=== PATIENT | male | born 1965 | race Caucasian/White ===

== ENCOUNTER → 2017-10-22 10:27 | Outpatient (CLI) | payer OTHER, SELFPAY ==
[2017-10-22 12:53] LABS: PSA,Total- Diagnostic 0.38 ng/mL (0.0-4.0)
== END ==
PROVIDERS: Family Provider Nurse Practitioner Family; PCP Nurse Practitioner Family
DX: N40.1 Benign prostatic hyperplasia with lower urinary tract symptoms (principal); N13.8 Other obstructive and reflux uropathy; Z12.5 Encounter for screening for malignant neoplasm of prostate
CPT/HCPCS: 36415; 84153

== ENCOUNTER → 2017-11-05 12:52 | Outpatient (CLI) | payer OTHER, SELFPAY ==
--- NOTE | 2017-11-05 12:56 | MRI_ITS ---
STUDY: MRI BRAIN WITHOUT CONTRAST REASON FOR EXAM: Male, 52 years old. Follow-up of Arnold-Chiari malformation. Patient has occipital headache and neck pain. TECHNIQUE: Standardized multiplanar fat and water weighted pulse sequences were obtained. COMPARISON: MRI the cervical spine dated July 19, 2017. FINDINGS: Normal size of the ventricles and extra-axial spaces for the patient's age. The white matter has a generally normal appearance. There is a focus of abnormal T2 hyperintensity within the left cho radiata measuring 8.1 mm in size. This does not have any significant mass effect. This also has abnormal T1 hyperintensity. There is no evidence for recent intracranial ischemia or other cause of cytotoxic edema on diffusion weighted imaging (DWI). Normal T2* images of the brain without demonstrated susceptibility artifact. There is no demonstrated hemosiderin stain. Normal bilateral basal ganglia. Normal thalami. There is no extra-axial fluid accumulation. Normal flow voids within the major intracranial circulation suggesting patency by spin echo criteria. Normal sella turcica, pituitary gland, infundibular stalk, optic chiasm and hypothalamus. 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 The pineal cyst measures approximately 5.5 mm in greatest dimension. Normal midbrain, armand and medulla. There is mild tonsillar ectopia, which is within normal limits, and without distortion of the brainstem. The findings are not consistent with an Arnold-Chiari type I malformation. Normal basal cisterns. Normal bilateral temporal bones. Normal bilateral internal auditory canals. No demonstrated orbital abnormality, within the constraints of a routine brain study. There is opacification of most of the ethmoid sinuses. There is mild mucoperiosteal thickening within the frontal, maxillary and sphenoid sinuses. Normal calvarium and skull base. Normal visualized soft tissue structures. Normal visualized upper cervical spine. MRI/Brain without Contrast IMPRESSION: 1. There does not appear to be a Arnold-Chiari malformation. There appears to be mild tonsillar ectopia. 2. Nonspecific abnormal signal within the left cho radiata. This may be the result of previous ischemia, infection or demyelination. Neoplastic etiology is not excluded. 3. No MR evidence for acute infarct. 4. Moderately severe paranasal sinus disease. Electronically Signed: Leni Tafoya MD at 15:49 EDT , Service support ,
== END ==
PROVIDERS: Family Provider Nurse Practitioner Family; PCP Nurse Practitioner Family; Visit Provider Psychiatry & Neurology Neurology
DX: Q07.00 Arnold-Chiari syndrome without spina bifida or hydrocephalus (principal)
CPT/HCPCS: 70551

== ENCOUNTER 2017-11-22 07:22 | Day surgery (SDC) | payer OTHER, SELFPAY ==
--- NOTE | 2017-11-21 23:36 | HP.PCM_ITS ---
History and Physical Date of Admission: 11/22/17 HISTORY OF PRESENT ILLNESS This is a 52-year-old gentleman, who presents with a lesion on his left distal nasal dorsum near the tip that had increased in size over the last several months. It was biopsied on 07/31/17 and it showed an eroded basal cell carcinoma , superficial and micronodular type with positive margins. He also had a lesion of his left chest wall that had also increased in size as well and was biopsied on 07/31/17. It showed a dysplastic nevus with moderate atypia. He presents today for surgical options for treatment for his recently diagnosed basal cell carcinoma on his left distal nasal dorsum near the tip and his dysplastic nevus with moderate atypia on his left chest wall. The patient denies any fever. The patient denies any trauma. The patient denies any drainage or recent infection from these lesions on his nose and left chest wall. PAST MEDICAL HISTORY 1. Alcohol abuse. 2. Back pain. 3. Urinary tract infections. 4. Breast lump. 5. Carpal tunnel syndrome. 6. Depression. 7. Headaches. 8. Hypertension. 9. High cholesterol. 10. Hives. 11. Kidney stones. 12. Neuropathy. 13. Pneumonia. 14. Prostate problems. 15. Skin cancer. 16. Vision problems. 17. Cervical stenosis. 18. Psoriasis. 19. Basal cell carcinoma right lateral nasal sidewall/nasal dorsum. 20. Actinic keratosis left supramedial cheek. PAST SURGICAL HISTORY 1. Chest lump removed. 2. Cyst removed off his penis. 3. Arthroscopic surgery on his knee. 4. Two ingrown toe nails surgery. 5. Excision 7 mm basal cell carcinoma right lateral nasal sidewall/nasal dorsum with FTSG reconstruction from the right neck (1.5 cm2) and intradermal excision 5 mm actinic keratosis left supramedial cheek - 05/24/16 MEDICATIONS Pantoprazole, Lipitor, meloxicam, acyclovir, Tamsulosin, aspirin, ibuprofen, Lisinopril, Neurontin, Nicoderm. ALLERGIES BAND-AIDS. SOCIAL HISTORY The patient smokes. The patient drinks alcohol every day. The patient has a history of alcohol abuse in the past. FAMILY HISTORY Positive for skin cancer. Also positive for hypertension and stroke. REVIEW OF SYSTEMS GENERAL: Denies fever and weight loss. Does have some fatigue. EARS, NOSE, AND THROAT: Denies nasal congestion. Denies sore throat. EYES: Denies glaucoma. Denies cataracts. ENDOCRINE: Denies excessive thirst or urination. INTEGUMENTARY: Has a lesion on his left distal nasal dorsum near the tip that was biopsied on 07/31/17 and was a basal cell carcinoma. Has a lesion left chest wall that was biopsied on 07/31/17 and was a dysplastic nevus with moderate atypia. Had basal cell carcinoma excised from right lateral nasal sidewall/nasal dorsum in 05/11. Also has a positive family history of skin cancer. MUSCULOSKELETAL: Has joint pain, joint stiffness and weakness in muscles and joints, and back pain. NEUROLOGIC: Has headaches. Has some lightheadedness. CARDIOVASCULAR: Denies chest pain. Denies shortness of breath with exertion. Has some lightheadedness. Has some fatigue. PSYCHIATRIC: Has some depression. Denies anxiety. RESPIRATORY: Denies chronic cough. Has shortness of breath. Patient is a smoker. GASTROINTESTINAL: Denies nausea or vomiting. Has some diarrhea and some constipation. HEMATOLOGIC: Denies abnormal bruising. Denies fever. Denies anemia. GENITOURINARY: Denies urinary frequency. Denies hematuria. Has some prostate problems. Has history of kidney stones. PHYSICAL EXAMINATION HEENT: Pupils equal, round, and reactive to light. Extraocular movements are intact. Throat is clear. On the left distal nasal dorsum near the tip is an 8 mm lesion that was recently biopsied and found to be a basal cell carcinoma. Healing scar with no evidence of infection. No ulceration. NECK: Supple and nontender. No cervical adenopathy. No suspicious lesions noted. CHEST WALL: On the left chest wall is a 1 cm recently biopsied lesion that was a dysplastic nevus with moderate atypia. Scar is healed with no evidence of infection. LUNGS: Clear to auscultation. HEART: Regular rate and rhythm. ABDOMEN: No suspicious lesions noted. BACK: No suspicious lesions noted. EXTREMITIES: No suspicious lesions noted. Full range of motion. No axillary adenopathy. Radial pulses are palpable. NEURO: Cranial nerves II through XII grossly intact. ASSESSMENT 1. 8 mm basal cell carcinoma, left distal nasal dorsum near the tip. 2. 1 cm dysplastic nevus with moderate atypia left chest wall. 3. Personal history of skin cancer. 4. Family history of skin cancer. 5. Smoker. PLAN I recommend excising this basal cell carcinoma on the left distal nasal dorsum near the tip and send it to Pathology for analysis to rule out carcinoma at the margins. Need a 3-5 mm margin. Reconstruction will be with a skin flap or a skin graft. Also recommend excising the dysplastic nevus with moderate atypia on his left chest wall and send it to Pathology for analysis to rule out carcinoma at the margins. Need a couple mm margin. Surgery will take place under local anesthesia and IV sedation on an outpatient basis. The patient was informed of the risks and complications of the procedure including alternatives to surgery. These were discussed with the patient personally. The patient voices understanding and wishes to proceed. Some of the risks and complications were included in a form from the [employer]. Encouraged the patient to stop smoking as it may have deleterious effects on wound healing.
[2017-11-22] VITALS (8 sets, daily range): BP systolic 116–135; BP diastolic 81–87; PULSE 64–69; RESP 16–18; TEMP 36.3–36.6; O2SAT 96–100; BMI 31.6
[2017-11-22] MEDS: Clindamycin 900 MG/50 ML BAG 75 MG IV (09:14)
--- NOTE | 2017-11-22 09:15 | LES_PTH ---
PATIENT: RAMA KENNY LOC: [facility] [place][id number] AGE/SX: 52/M ROOM: RE11/22/[address]: Dr. Roly Merida MD : 1965 BED: DIS: 11/22/2017 SPEC #: [id number] RECD: 11/22/17 11:12 STATUS: MAIK ALONDRA #: [id number] ANI: 11/22/17 09:[address]: Roly Merida DEPT: SURGICAL PATHOLOGY RECD BY: Den Puri ENTERED: 11/22/17 11:32 SP TYPE: Lesion OTHR DR: Wilton Logan, MARGIE-Adam Tissues: A - Skin of nose, NOS B - Skin of chest Procedures: Surgery Specimen Level IV HEADER OPERATION: Excision, basal cell cancer, distal nasal dorsum with skin flap PRE-OP DIAGNOSIS: 8 mm basal cell carcinoma left distal nasal dorsum near the tip; 1 cm dysplastic nevus with moderate atypia left chest wall; personal history of skin cancer TISSUE SUBMITTED: A. Basal cell carcinoma, distal nasal dorsum, suture at 12 o?clock, B. Dysplastic nevus chest wall MICROSCOPIC DIAGNOSIS A. Basal cell carcinoma, distal nasal dorsum, excisional biopsy: Basal cell carcinoma with focal ulceration and associated inflammation, completely excised. Solar elastosis. B. Dysplastic nevus chest wall, excisional biopsy: Dermal fibrosis consistent with scar. Negative for melanocytic lesion. REYNALDO:susi 11/25/17 MICROSCOPIC DESCRIPTION Slides are reviewed. GROSS DESCRIPTION A - Received in fixative is one container labeled with the patient's name and designated basal cell carcinoma, suture at 12 o'clock. The specimen consists of a pear-shaped piece of cleary-white skin measuring 2.2 x 1.5 x 0.3 cm. The specimen is oriented by a suture at 12 o?clock. The tip of the pear is towards 9 o?clock. The specimen is inked as follows: 12 o?clock margin ? black, 6 o?clock margin ? blue, 3 o?clock margin ? yellow and 9 o?clock tip ? green. The specimen is serially sectioned and submitted entirely in two cassettes as follows: 1 ? 3 o?clock margin and 9 o?clock tip, 2 ? rest of the specimen. B - Received in fixative is one container labeled with the patient's name and designated dysplastic nevus chest wall. The specimen consists of a cleary-white skin ellipse measuring 2.2 x 1 cm and up to 0.5 cm in thickness. The specimen is oriented by a suture at 12 o?clock. The specimen is inked as follows: 12 o?clock margin ? black, 6 o?clock margin ? blue, 3 o?clock tip ? yellow and 9 o?clock tip ? green. The specimen is serially sectioned and submitted entirely in two cassettes. Cassette 1 contains the 3 o?clock and 9 o?clock tips. / SJ:rg 11/22/17 TC:0 CPT: 93320 x2
--- NOTE | 2017-11-22 10:41 | PCM.IMDPSTOP ---
Immediate Post-Op Note Date of Procedure: 11/22/17 Primary Surgeon/Physician: Roly Merida supervisor stage carpentry: Radha Olivas. Pre-Operative Diagnosis: 1. 8 mm basal cell carcinoma, left distal nasal dorsum near the tip. 2. 1 cm dysplastic nevus with moderate atypia left chest wall. 3. Personal history of skin cancer. 4. Family history of skin cancer. 5. Smoker. Post-Operative Diagnosis: Same. Surgery/Procedure Performed:: 1. Excision 8 mm basal cell carcinoma, left distal nasal dorsum near the tip with bilobed transposition skin flap reconstruction (9 cm2). 2. Excision 1 cm dysplastic nevus with moderate atypia left chest wall with 4 cm layered closure. Description of Surgical Findings:: This is a 52-year-old gentleman, who presents with a lesion on his left distal nasal dorsum near the tip that had increased in size over the last several months. It was biopsied on 07/31/17 and it showed an eroded basal cell carcinoma, superficial and micronodular type with positive margins. He also had a lesion of his left chest wall that had also increased in size as well and was biopsied on 07/31/17. It showed a dysplastic nevus with moderate atypia. He presents today for surgical options for treatment for his recently diagnosed basal cell carcinoma on his left distal nasal dorsum near the tip and his dysplastic nevus with moderate atypia on his left chest wall. The patient denies any fever. The patient denies any trauma. The patient denies any drainage or recent infection from these lesions on his nose and left chest wall. Today the patient underwent excision 8 mm basal cell carcinoma, left distal nasal dorsum near the tip with bilobed transposition skin flap reconstruction (9 cm2) and excision 1 cm dysplastic nevus with moderate atypia left chest wall with 4 cm layered closure. Estimated Blood Loss: 10 ml. Specimen's removed: 1. Basal cell carcinoma left distal nasal dorsum near the tip to Pathology. 2. Dysplastic nevus left chest wall to Pathology. Drains: None. Type of Anesthesia:: Local MAC - Xylocaine with epinephrine and IV sedation. - Admit VTE Documentation VTE Present on Admission: No VTE Mechan Device Prophylaxis: SCD's VTE Pharm Prophylaxis ordered?: No
--- NOTE | 2017-11-22 10:44 | OP.PN_ITS ---
Immediate Post-Op Note Date of Procedure: 11/22/17 Primary Surgeon/Physician: Roly Merida livestock breeder: Radha Olivas. Pre-Operative Diagnosis: 1. 8 mm basal cell carcinoma, left distal nasal dorsum near the tip. 2. 1 cm dysplastic nevus with moderate atypia left chest wall. 3. Personal history of skin cancer. 4. Family history of skin cancer. 5. Smoker. Post-Operative Diagnosis: Same. Surgery/Procedure Performed:: 1. Excision 8 mm basal cell carcinoma, left distal nasal dorsum near the tip with bilobed transposition skin flap reconstruction (9 cm2). 2. Excision 1 cm dysplastic nevus with moderate atypia left chest wall with 4 cm layered closure. Description of Surgical Findings:: This is a 52-year-old gentleman, who presents with a lesion on his left distal nasal dorsum near the tip that had increased in size over the last several months. It was biopsied on 07/31/17 and it showed an eroded basal cell carcinoma , superficial and micronodular type with positive margins. He also had a lesion of his left chest wall that had also increased in size as well and was biopsied on 07/31/17. It showed a dysplastic nevus with moderate atypia. He presents today for surgical options for treatment for his recently diagnosed basal cell carcinoma on his left distal nasal dorsum near the tip and his dysplastic nevus with moderate atypia on his left chest wall. The patient denies any fever. The patient denies any trauma. The patient denies any drainage or recent infection from these lesions on his nose and left chest wall. Today the patient underwent excision 8 mm basal cell carcinoma, left distal nasal dorsum near the tip with bilobed transposition skin flap reconstruction ( 9 cm2) and excision 1 cm dysplastic nevus with moderate atypia left chest wall with 4 cm layered closure. Estimated Blood Loss: 10 ml. Specimen's removed: 1. Basal cell carcinoma left distal nasal dorsum near the tip to Pathology. 2. Dysplastic nevus left chest wall to Pathology. Drains: None. Type of Anesthesia:: Local MAC - Xylocaine with epinephrine and IV sedation. - Admit VTE Documentation VTE Present on Admission: No VTE Mechan Device Prophylaxis: SCD's VTE Pharm Prophylaxis ordered?: No
[2017-11-22] MEDS: Mupirocin Ointment 22gm Tube 1 APPLIC (10:50)
--- NOTE | 2017-11-22 10:50 | PCM.DC ---
You will use the following diet at home:: No restrictions Discharge Activity: May not drive while taking narcotic pain medications., May Shower - in two days., - - keep head elevated. no heavy lifting. May shower in (days): 2 May resume sexual activity in: No Restrictions Ice area for (Minutes): 5 - as needed for facial swelling. Weight Bearing Status: Weight bearing as tolerated Lifting Restrictions: 10 lbs. Keep extremity elevated above heart level: - - elevate head. Call your doctor if your incision/area has: Continuous Slow Oozing, Sudden Increased Bleeding, Increased Pain/ Swelling, Increased Redness, Foul Smelling Discharge, Swelling at the incision site Call your doctor if you observe: Fever of 101 or Higher, Coldness, Increased Pain, Shortness of breath, Chest pain, Calf discomfort, Uncontrolled pain Suture Line Care: - - apply antibiotic ointment to suture line daily on the nose. apply antibiotic ointment to suture lined daily to left chest wall after dressing removed in two days. Change Dressing in (Days):: 2 Cleanse incision/area with: - - may get incisions wet in the shower in two days. Allergies/Adverse Reactions: Allergies Penicillins Allergy (Verified 11/15/17 11:46) Unknown adhesive tape Adverse Reaction (Verified 11/15/17 11:46) BLISTERS Medications to take at Discharge Atorvastatin Calcium [Lipitor] 20 mg PO DAILY 05/22/16 Meloxicam [Mobic] 15 mg PO DAILY 05/22/16 lisinopril 10 mg tablet 10 mg PO DAILY #90 tab 08/21/17 famotidine 20 mg tablet 20 mg PO QDAY #90 tab 08/22/17 nicotine 14 mg/24 hr daily transdermal patch 14 mg TRANSDERMAL QDAY #42 patch 11/01/17 gabapentin 400 mg capsule 400 mg PO TID #90 cap 11/06/17 acyclovir 400 mg tablet 400 mg PO DAILY #30 tab 11/20/17 Clindamycin HCl [Cleocin] 300 mg PO TID #15 cap 11/22/17 Oxycodone HCl/Acetaminophen [Percocet 5/325] 1 - 2 tab PO 4X/DAY PRN PRN 4 Days #30 tab 11/22/17 The following prescriptions were given: Oxycodone HCl/Acetaminophen [Percocet 5/325] 1 - 2 tab PO 4X/DAY PRN PRN 4 Days #30 tab PRN Reason: Pain Clindamycin HCl [Cleocin] 300 mg PO TID #15 cap Primary Care Physician: Wilton Logan WEB ADMINISTRATOR-C [Primary Care Provider] - Please Follow Up With: Roly Merida MD When: one week. call [phone] for appt. Proposed Discharge Date: 11/22/17
--- NOTE | 2017-11-22 10:53 | DCINST_ITS ---
You will use the following diet at home:: No restrictions Discharge Activity: May not drive while taking narcotic pain medications., May Shower - in two days., - - keep head elevated. no heavy lifting. May shower in (days): 2 May resume sexual activity in: No Restrictions Ice area for (Minutes): 5 - as needed for facial swelling. Weight Bearing Status: Weight bearing as tolerated Lifting Restrictions: 10 lbs. Keep extremity elevated above heart level: - - elevate head. Call your doctor if your incision/area has: Continuous Slow Oozing, Sudden Increased Bleeding, Increased Pain/ Swelling, Increased Redness, Foul Smelling Discharge, Swelling at the incision site Call your doctor if you observe: Fever of 101 or Higher, Coldness, Increased Pain, Shortness of breath, Chest pain, Calf discomfort, Uncontrolled pain Suture Line Care: - - apply antibiotic ointment to suture line daily on the nose. apply antibiotic ointment to suture lined daily to left chest wall after dressing removed in two days. Change Dressing in (Days):: 2 Cleanse incision/area with: - - may get incisions wet in the shower in two days. Allergies/Adverse Reactions: Allergies Penicillins Allergy (Verified 11/15/17 11:46) Unknown adhesive tape Adverse Reaction (Verified 11/15/17 11:46) BLISTERS Medications to take at Discharge Atorvastatin Calcium [Lipitor] 20 mg PO DAILY 05/22/16 Meloxicam [Mobic] 15 mg PO DAILY 05/22/16 lisinopril 10 mg tablet 10 mg PO DAILY #90 tab 08/21/17 famotidine 20 mg tablet 20 mg PO QDAY #90 tab 08/22/17 nicotine 14 mg/24 hr daily transdermal patch 14 mg TRANSDERMAL QDAY #42 patch gabapentin 400 mg capsule 400 mg PO TID #90 cap 11/06/17 acyclovir 400 mg tablet 400 mg PO DAILY #30 tab 11/20/17 Clindamycin HCl [Cleocin] 300 mg PO TID #15 cap 11/22/17 Oxycodone HCl/Acetaminophen [Percocet 5/325] 1 - 2 tab PO 4X/DAY PRN PRN 4 Days #30 tab 11/22/17 The following prescriptions were given: Oxycodone HCl/Acetaminophen [Percocet 5/325] 1 - 2 tab PO 4X/DAY PRN PRN 4 Days #30 tab PRN Reason: Pain Clindamycin HCl [Cleocin] 300 mg PO TID #15 cap Primary Care Physician: Wilton Logan CHEST PAINTING AND SEALING SUPERVISOR-C [Primary Care Provider] - Please Follow Up With: Roly Merida MD When: one week. call [phone] for appt. Proposed Discharge Date: 11/22/17
--- NOTE | 2017-11-22 16:43 | PCM.OPRPT ---
Report of Operation Date of Procedure: 11/22/17 Pre-Operative Diagnosis: 1. 8 mm basal cell carcinoma, left distal nasal dorsum near the tip. 2. 1 cm dysplastic nevus with moderate atypia left chest wall. 3. Personal history of skin cancer. 4. Family history of skin cancer. 5. Smoker. Post-Operative Diagnosis: Same. Surgery/Procedure Performed:: 1. Excision 8 mm basal cell carcinoma, left distal nasal dorsum near the tip with bilobed transposition skin flap reconstruction (9 cm2). 2. Excision 1 cm dysplastic nevus with moderate atypia left chest wall with 4 cm layered closure. Description of Surgical Findings:: This is a 52-year-old gentleman, who presents with a lesion on his left distal nasal dorsum near the tip that had increased in size over the last several months. It was biopsied on 07/31/17 and it showed an eroded basal cell carcinoma, superficial and micronodular type with positive margins. He also had a lesion of his left chest wall that had also increased in size as well and was biopsied on 07/31/17. It showed a dysplastic nevus with moderate atypia. He presents today for surgical options for treatment for his recently diagnosed basal cell carcinoma on his left distal nasal dorsum near the tip and his dysplastic nevus with moderate atypia on his left chest wall. The patient denies any fever. The patient denies any trauma. The patient denies any drainage or recent infection from these lesions on his nose and left chest wall. The patient was informed of the risks and complications of the procedure including alternatives to surgery. These were discussed with the patient personally. The patient voices understanding and wishes to proceed. Some of the risks and complications were included in a form from the [employer]. Encouraged the patient to stop smoking as it may have deleterious effects on wound healing. cafeteria server: Radha Olivas. Type of Anesthesia:: Local MAC - Xylocaine with epinephrine and IV sedation. Specimen's removed: 1. Basal cell carcinoma left distal nasal dorsum near the tip to Pathology. 2. Dysplastic nevus left chest wall to Pathology. Drains: None. Estimated Blood Loss (mL): 10 ml. Description of Procedure: Patient was taken to OR in supine position and was given IV sedation. His face, neck, and left chest wall were prepped and draped in the usual fashion. SCD's were placed for DVT prophylaxis. Perioperative antibiotics were given intravenously. The lesion left distal nasal dorsum near the tip and the lesion left chest wall were infiltrated with xylocaine with epinephrine. After waiting 5 minutes for the anesthetic to take effect, I excised the dysplastic nevus with moderate atypia on the left chest wall in an oblique elliptical fashion with a 2 mm margin in all directions. This makes it a 14 mm excision and a 4 cm layered closure. The lesion was marked with a suture at the 12 oclock position for pathology orientation. It was sent to Pathology for analysis to rule out carcinoma. Hemostasis was obtained with electrocautery. The wound was closed in multiple layers with 4-0 Monocryl interrupted sutures for the deep dermis and subcutaneous tissue. The skin was approximated with 4-0 Prolene simple interrupted sutures. Antibiotic ointment was applied to the suture line followed by an Op-Site dressing. I then excised the basal cell carcinoma in the left distal nasal dorsum near the tip in a circular fashion with a 4 mm margin in all directions. This makes this a 15 mm excision. I felt I could try and close the wound with a local bilobed skin flap instead of a skin graft. A skin graft would extend onto the tip and there would be a risk of a contour irregularity after healing occurs. Therefore I will try the bilobed flap first. If it doesn't transpose easily or if there is deformity after transposing the flap, then I will put the flap back in place and then proceed with the skin graft. I designed a bilobed flap at a 90 degree angle. The design of the flap was 3 x 3 cm or 9 cm2. The markings were infiltrated with xylocaine with epinephrine. After waiting 5 minutes for the anesthetic to take effect, incisions were made down to the underlying cartilage. Going deep to the muscle would maximize healing of the flap. Once created, the bilobed flap was easily transposed into the defect with minimal tension and minimal distortion. There was no distortion on the nasal alar rim. The wound was irrigated with saline. Hemostasis was obtained with electrocautery. The bilobed flap was then transposed into the defect and the wound was closed in multiple layers with 5-0 Monocryl interrupted sutures for the deep dermis and subcutaneous tissue. The skin was approximated with 6-0 Prolene simple interrupted sutures. Steri-strips were applied followed by antibiotic ointment. Good nasal contouring was noted after flap closure. Patient tolerated the procedure well and was sent to PACU in satisfactory condition. He will keep his head elevated during the initial postop period. He will be on a lifting restriction as well. He will followup in the office in a week for a wound check as well as for discussion of the Pathology report and for removal of the sutures. Grafts/Implants Used: None. - Complications None. - Admit VTE Documentation VTE Present on Admission: No VTE Mechan Device Prophylaxis: SCD's VTE Pharm Prophylaxis ordered?: No Code Visit Surgery Charges CPT - 51599 ICD-10 - C44.311, Z85.828, Z80.8, Z86.14, F17.200 67401 D23.5, Z85.828, Z80.8, Z86.14, F17.200 81047 D23.5, Z85.828, Z80.8, Z86.14, F17.200
--- NOTE | 2017-11-23 10:44 | OP.PCM_ITS ---
Report of Operation Date of Procedure: 11/22/17 Pre-Operative Diagnosis: 1. 8 mm basal cell carcinoma, left distal nasal dorsum near the tip. 2. 1 cm dysplastic nevus with moderate atypia left chest wall. 3. Personal history of skin cancer. 4. Family history of skin cancer. 5. Smoker. Post-Operative Diagnosis: Same. Surgery/Procedure Performed:: 1. Excision 8 mm basal cell carcinoma, left distal nasal dorsum near the tip with bilobed transposition skin flap reconstruction (9 cm2). 2. Excision 1 cm dysplastic nevus with moderate atypia left chest wall with 4 cm layered closure. Description of Surgical Findings:: This is a 52-year-old gentleman, who presents with a lesion on his left distal nasal dorsum near the tip that had increased in size over the last several months. It was biopsied on 07/31/17 and it showed an eroded basal cell carcinoma , superficial and micronodular type with positive margins. He also had a lesion of his left chest wall that had also increased in size as well and was biopsied on 07/31/17. It showed a dysplastic nevus with moderate atypia. He presents today for surgical options for treatment for his recently diagnosed basal cell carcinoma on his left distal nasal dorsum near the tip and his dysplastic nevus with moderate atypia on his left chest wall. The patient denies any fever. The patient denies any trauma. The patient denies any drainage or recent infection from these lesions on his nose and left chest wall. The patient was informed of the risks and complications of the procedure including alternatives to surgery. These were discussed with the patient personally. The patient voices understanding and wishes to proceed. Some of the risks and complications were included in a form from the [employer]. Encouraged the patient to stop smoking as it may have deleterious effects on wound healing. low pressure boiler tender: Radha Olivas. Type of Anesthesia:: Local MAC - Xylocaine with epinephrine and IV sedation. Specimen's removed: 1. Basal cell carcinoma left distal nasal dorsum near the tip to Pathology. 2. Dysplastic nevus left chest wall to Pathology. Drains: None. Estimated Blood Loss (mL): 10 ml. Description of Procedure: Patient was taken to OR in supine position and was given IV sedation. His face , neck, and left chest wall were prepped and draped in the usual fashion. SCD' s were placed for DVT prophylaxis. Perioperative antibiotics were given intravenously. The lesion left distal nasal dorsum near the tip and the lesion left chest wall were infiltrated with xylocaine with epinephrine. After waiting 5 minutes for the anesthetic to take effect, I excised the dysplastic nevus with moderate atypia on the left chest wall in an oblique elliptical fashion with a 2 mm margin in all directions. This makes it a 14 mm excision and a 4 cm layered closure. The lesion was marked with a suture at the 12 oclock position for pathology orientation. It was sent to Pathology for analysis to rule out carcinoma. Hemostasis was obtained with electrocautery. The wound was closed in multiple layers with 4-0 Monocryl interrupted sutures for the deep dermis and subcutaneous tissue. The skin was approximated with 4- 0 Prolene simple interrupted sutures. Antibiotic ointment was applied to the suture line followed by an Op-Site dressing. I then excised the basal cell carcinoma in the left distal nasal dorsum near the tip in a circular fashion with a 4 mm margin in all directions. This makes this a 15 mm excision. I felt I could try and close the wound with a local bilobed skin flap instead of a skin graft. A skin graft would extend onto the tip and there would be a risk of a contour irregularity after healing occurs. Therefore I will try the bilobed flap first. If it doesn't transpose easily or if there is deformity after transposing the flap, then I will put the flap back in place and then proceed with the skin graft. I designed a bilobed flap at a 90 degree angle. The design of the flap was 3 x 3 cm or 9 cm2. The markings were infiltrated with xylocaine with epinephrine. After waiting 5 minutes for the anesthetic to take effect, incisions were made down to the underlying cartilage. Going deep to the muscle would maximize healing of the flap. Once created, the bilobed flap was easily transposed into the defect with minimal tension and minimal distortion. There was no distortion on the nasal alar rim. The wound was irrigated with saline. Hemostasis was obtained with electrocautery. The bilobed flap was then transposed into the defect and the wound was closed in multiple layers with 5-0 Monocryl interrupted sutures for the deep dermis and subcutaneous tissue. The skin was approximated with 6-0 Prolene simple interrupted sutures. Steri-strips were applied followed by antibiotic ointment. Good nasal contouring was noted after flap closure. Patient tolerated the procedure well and was sent to PACU in satisfactory condition. He will keep his head elevated during the initial postop period. He will be on a lifting restriction as well. He will followup in the office in a week for a wound check as well as for discussion of the Pathology report and for removal of the sutures. Grafts/Implants Used: None. - Complications None. - Admit VTE Documentation VTE Present on Admission: No VTE Mechan Device Prophylaxis: SCD's VTE Pharm Prophylaxis ordered?: No Code Visit Surgery Charges CPT - 33871 ICD-10 - C44.311, Z85.828, Z80.8, Z86.14, F17.200 60491 D23.5, Z85.828, Z80.8, Z86.14, F17.200 43404 D23.5, Z85.828, Z80.8, Z86.14, F17.200
== END 2017-11-22 12:06 | disposition home or self-care (01) ==
LOC: SDC 07:22 → AC 07:24
PROVIDERS: Family Provider Nurse Practitioner Family; PCP Nurse Practitioner Family; Visit Provider Surgery
PROC: (CPT 11401; principal; 2017-11-22 09:05)
DX: C44.311 Basal cell carcinoma of skin of nose (principal); L57.8 Other skin changes due to chronic exposure to nonionizing radiation; D22.5 Melanocytic nevi of trunk; L90.5 Scar conditions and fibrosis of skin; I10 Essential (primary) hypertension; E78.00 Pure hypercholesterolemia, unspecified; N40.0 Benign prostatic hyperplasia without lower urinary tract symptoms; K21.9 Gastro-esophageal reflux disease without esophagitis; F10.10 Alcohol abuse, uncomplicated; Y90.9 Presence of alcohol in blood, level not specified; F17.200 Nicotine dependence, unspecified, uncomplicated; Z79.82 Long term (current) use of aspirin; Z79.899 Other long term (current) drug therapy; Z85.828 Personal history of other malignant neoplasm of skin; Z80.8 Family history of malignant neoplasm of other organs or systems
CPT/HCPCS: 00300; 11401; 14060; 88305; J7120

== ENCOUNTER → 2018-01-03 09:47 | Outpatient (CLI) | payer OTHER, SELFPAY ==
[2018-01-03 12:29] LABS: AST(SGOT) 21 U/L (15-37); Alanine Aminotransfer ALT/SGPT 60 U/L (16-61); Albumin, Serum 3.9 g/dL (3.2-5.0); Alkaline Phosphatase 82 U/L (45-117); Anion Gap 9 (5-15); BUN 13 mg/dL (7-18); BUN/Creat Ratio 15.5 RATIO (10-20); Bilirubin, Direct 0.12 mg/dL (0.00-0.30); Calcium,Total 8.8 mg/dL (8.5-10.1); Chloride 106 mmol/L (98-107); Cholesterol 174 mg/dL (200); Creatinine, Serum 0.84 mg/dL (0.70-1.30); EST Glomerular Filtration Rate 101 mL/min (>60); Est Glom Filt Rate - Afr Amer 123 mL/min (>60); Globulin 3.7 g/dL (2.2-4.2); Glucose 82 mg/dL (74-106); High Density Lipoprotein 39 mg/dL; PSA,Total - Annual Screen 0.43 ng/mL (0.00-4.00); Potassium 3.7 mmol/L (3.5-5.1); Protein, Total 7.6 g/dL (6.4-8.2); Sodium Level 141 mmol/L (136-145); Triglycerides 183 mg/dL; Very Low Density Lipoprotein 37 mg/dL (5-40)
== END ==
PROVIDERS: Family Provider Nurse Practitioner Family; PCP Nurse Practitioner Family; Visit Provider Nurse Practitioner Family
DX: Z12.5 Encounter for screening for malignant neoplasm of prostate (principal); N40.0 Benign prostatic hyperplasia without lower urinary tract symptoms; E78.5 Hyperlipidemia, unspecified; I10 Essential (primary) hypertension
CPT/HCPCS: 36415; 80048; 80061; 80076; 84153; G0103

== ENCOUNTER → 2019-01-30 08:09 | Outpatient (CLI) | payer OTHER, SELFPAY ==
[2018-12-11 14:34] VITALS: BMI 31.1
--- NOTE | 2019-01-30 08:13 | CDU_ITS ---
Reason For Study: Syncope Rt. Velocities/BP Lt. Velocities/BP Prox CCA 121.1/22.5 cm/sec. Prox CCA 143.3/31.4 cm/sec. Mid CCA 99.2/29.8 cm/sec. Mid CCA 119.5/28.6 cm/sec. Dist CCA 82.7/31.1 cm/sec. Dist CCA 98.6/33.5 cm/sec. Prox ICA 60.5/23.7 cm/sec. Prox ICA 45.8/18 cm/sec. Mid ICA 103.5/40.9 cm/sec. Mid ICA 56.1/26.4 cm/sec. Dist ICA 103.5/43.3 cm/sec. Dist ICA 82.5/37.1 cm/sec. Rt. ICA/CCA = 1.0. Lt. ICA/CCA = 0.7. Prox ECA 99.8/21.2 cm/sec. Prox ECA 69.1/20 cm/sec. Rt. Vert. 32.4/13.3 cm/sec. Lt. Vert. 50.4/22 cm/sec. Right Extracranial There is homogeneous, smooth atherosclerotic plaque noted in the right common carotid artery. There is heterogeneous, smooth atherosclerotic plaque noted in the right internal carotid artery. There is intimal thickening but no significant atherosclerotic plaque noted in the right external carotid artery. Antegrade flow is noted in the right vertebral artery. Left Extracranial There is homogeneous, smooth atherosclerotic plaque noted in the left common carotid artery. There is homogeneous, smooth atherosclerotic plaque noted in the left internal carotid artery. There is intimal thickening but no significant atherosclerotic plaque noted in the left external carotid artery. The left external carotid artery is not well visualized. Antegrade flow is noted in the left vertebral artery. Procedure Carotid Duplex 76133. Exam performed in department. Interpretation Summary Mild (<50%) stenosis right extracranial internal carotid. Mild (<50%) stenosis left extracranial internal carotid. Flow within the vertebral arteries is antegrade bilaterally. Ordering Physician: Roly Marino Referring Physician: Francisco Jacobson Performed By: Kenyetta Serna RVT
--- NOTE | 2019-01-30 09:57 | MRI_ITS ---
STUDY: MRI BRAIN WITHOUT CONTRAST REASON FOR EXAM: Male, 53 years old. Headache TECHNIQUE: Standardized multiplanar fat and water weighted pulse sequences were obtained. COMPARISON: 11/05/2017 FINDINGS: Normal size of the ventricles and extra-axial spaces for the patient's age. No change in single focal hyperintensity of the left periventricular white matter likely consistent with microangiopathic gliosis. There is no evidence for recent intracranial ischemia or other cause of cytotoxic edema on diffusion weighted imaging (DWI). Normal T2* images of the brain without demonstrated susceptibility artifact. There is no demonstrated hemosiderin stain. Normal bilateral basal ganglia. Normal thalami. There is no extra-axial fluid accumulation. Normal flow voids within the major intracranial circulation suggesting patency by spin echo criteria. Normal sella turcica, pituitary gland, infundibular stalk, optic chiasm and hypothalamus. Normal tectal plate and pineal gland. Normal midbrain, armand and medulla. There is mild tonsillar ectopia, which is within normal limits, and without distortion of the brainstem. The findings are not consistent with an Arnold-Chiari type I malformation. Normal basal cisterns. Normal bilateral temporal bones. Normal bilateral internal auditory canals. No demonstrated orbital abnormality, within the constraints of a routine brain study. Normal visualized paranasal sinuses. Normal calvarium and skull base. Normal visualized soft tissue structures. Normal visualized upper cervical spine. MRI/Brain without Contrast IMPRESSION: No change from 11/05/2017. Electronically Signed: Den Magallon MD at 10:49 EDT Tel , Service support ,
== END ==
PROVIDERS: Family Provider Internal Medicine; PCP Internal Medicine; Referring Provider Psychiatry & Neurology Neurology; Visit Provider Psychiatry & Neurology Neurology
DX: G43.119 Migraine with aura, intractable, without status migrainosus (principal); R55 Syncope and collapse
CPT/HCPCS: 70551; 93880

== ENCOUNTER → 2019-02-03 09:12 | Outpatient (CLI) | payer OTHER, SELFPAY ==
[2018-12-11 14:34] VITALS: BMI 31.1
--- NOTE | 2019-02-03 09:18 | RAD_ITS ---
STUDY: X-RAY - RIGHT CLAVICLE REASON FOR EXAM: Male, 53 years old. Discomfort for a while. No known injury. TECHNIQUE: 2 view(s) of the clavicle. COMPARISON: None. FINDINGS: Normal clavicle. There is degenerative arthrosis of the acromioclavicular joint without inferior osseous prominence. There is degenerative arthrosis of the sternoclavicular articulation. 4 fracture Normal visualized pulmonary apex. RAD/Clavicle IMPRESSION: Degenerative changes of the sternoclavicular and acromioclavicular joints. Electronically Signed: Rayo Jennings DO at 17:13 EDT Tel [phone], Service support ,
[2019-02-03 11:11] LABS: PSA,Total - Annual Screen 0.35 ng/mL (0.00-4.00)
== END ==
LOC: MTLAB 09:14
PROVIDERS: Family Provider Internal Medicine; PCP Internal Medicine; Referring Provider Nurse Practitioner Family; Visit Provider Nurse Practitioner Family
DX: Z12.5 Encounter for screening for malignant neoplasm of prostate (principal); M89.8X1 Other specified disorders of bone, shoulder
CPT/HCPCS: 73000; 84153; G0103

== ENCOUNTER 2019-03-06 08:12 | Outpatient (RCR) | payer OTHER, SELFPAY ==
[2019-02-23 13:20] VITALS: BMI 31.1
--- NOTE | 2019-03-09 16:38 | HP.FCE ---
HP OT Functional Capacity Eval - Task Lift Floor (Occasional 1-33% of Day): 25 Floor (Frequent 34-66% of Day): 15 Floor (Constant 67-100% of Day): negligible Floor PDL: Light Knee (Occasional 1-33% of Day): 20 Knee (Frequent 34-66% of Day): 15 Knee (Constant 67-100% of Day): negligible Knee PDL: Light Waist (Occasional 1-33% of Day): 30 Waist (Frequent 34-66% of Day): 20 Waist (Constant 67-100% of Day): negligible Waist PDL: Light Shoulder (Occasional 1-33% of Day): 30 Shoulder (Frequent 34-66% of Day): 20 Shoulder (Constant 67-100% of Day): negligible Shoulder PDL: Light Overhead (Occasional 1-33% of Day): 20 Overhead (Frequent 34-66% of Day): 15 Overhead (Constant 67-100% of Day): negligible Overhead PDL: Light Comments: Maintained fair body mechanics; see below for details. - Work Activity/Posture Bending: Occasional Ability (1-33% of day) Squatting: Frequent Ability (34-66% of day) Kneeling: Frequent Ability (34-66% of day) Reaching out: Occasional Ability (1-33% of day) Reaching up: Occasional Ability (1-33% of day) Sitting: Frequent Ability (34-66% of day) Walking: Frequent Ability (34-66% of day) Standing: Frequent Ability (34-66% of day) - Reference Duration Sedentary Sedentary Light Light Light Medium Medium Medium Heavy Very Heavy Heavy Occasional (0-33% of day) Frequent (34-66% of day) Constant (67-100% of day) 10 # Negligible Negligible 15 # 8 # Negligible 20 # 10# Negli. 35 # 18 # 7 # 50 # 25 # 10 # 75 # 100 # >100 # 38 # 50 # >50 # 15 # 20 # >20 # - Patient Information Height: 1.75 m Weight:: 97.522 kg Hand Dominance: R BP (Medication Use/Usual Values per pt report): Yes - Medical History Medical History Including Restrictions: No medical restirctions given to him by his doctor per pateint report and he verbalized that doctor regarded lifting restriction will be based on evaluation. - Diagnoses Diagnoses: Current: cervical nerve root impingement, herniation of C5-C6. Past medical history: hyperlipidemia, hypertension, cervical spine pain, depression and anxiety. Medication list: - acyclovir 400 mg. - Aspir- 81 81 mg. - famotidine 20 mg. - lidocaine 5%. - lisinopril 10 mg. - meloxicam 15 mg. - sumatriptran 50 mg. Doses as directed by doctor. - Symptoms Symptoms: Major noted his typical symptoms include pain and headache. He noted most of pain is localized at base of skull at C1 vertebra area. He noted pain is constant and increased with activity. Major also explained pain often limits sleep. He sleeps in regular bed. - Pain Pain: Major has been seeing Dr. Marino for cervical spine pain. He is currently not on pain management program with pain specialist. He is taking gabapentin regularly at 1200 mg three times daily and as needed. He noted his first three years post injury he also took hydrocodone but was weaned and has not gone back on. He did refrain from pain medications prior to starting evaluation as he noted that he typically tasks at 10:30 am. He did bring to session. Nikko Pain Questionnaire is a self-report pain assessment to determine a patient?s accurate psychodynamics for accurate pain rating. A score of 30 or high indicates poor psychodynamics and the greater probability of decreased accuracy with accurate pain reporting. Day 1: Pre- Nikko: 33. Post Nikko: 55. Fear Avoidance Questionnaire (FAQ) is a client self-report assessment for 18-64+ that has shown to be reliable and valid for determining increased fear with movements. A score of 96 or higher indicates increased fear avoidance behaviors. FAQ Pre-testing: - physical activity subscale-22. - work subscale-42. FAQ Post testing: - physical activity subscale-22. - work subscale-42. Oswestry Neck questionnaire is a self-report assessment in which patients report their perceived level of disability based on their perceived pain. 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 He noted he was injured on the job. His job at the [employer] required him to work eight hour shifts with 2x fifteen-minute breaks and one 30-minute lunch break. He noted he was required to carry 10-foot ladder approximately 25+ lbs, tool pouch 10-15 lbs, and completed frequent standing and stair climbing as worked throughout the building. He noted most of job was working at or above shoulder height and he often worked on lights. - Behavioral Behavioral: It's amazing how much my neck starts to hurt when looking down. I never came back to physical therapy, just too many people. I don't know why my anxiety is so bad today. I was here at quarter to 8:00 am because I just wanted to get this done with. Throughout session he seemed to do better with less auditory and visual stimulation and had some anxious like behaviors of ?well this might hurt? which seemed to limit off/on throughout the session. Additionally, he called therapist post assessment after being educated he would likely experience increase in pain as he was not used to regularly completing as much physical exertion as he did today. He also noted he is in pain ?constantly? so movement only increases. - ADLS ADLS: Major lives alone in [facility] style home with no steps to enter. He does have basement with 11 steps that he does access. Laundry is located in basement and he still completed. Major completed all self-care tasks. He noted that he has some increased pain with increased movement of head and cervical spine. These symptoms are constant and increased with movement. He noted he has two acres and mows 1.5 acres over the span of three days with riding lawnmower. He noted that he often has increased pain in neck with task. Major still is able to complete grocery shopping tasks and completed simple meal prep. He has not been working for the last five years. - Physical Examination Physical Examination: The purpose of this functional capacity evaluation (FCE) was to determine Jose Guadalupes physical ability. 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 Aerobic limiting factor: 85% of max adjust HR= (220-age)*.85= 140 bpm. Calculated max weight: 60% of weight= 132 lbs. Begining Diagnositics: Blood Pressure: 141/83 mmHg. Heart rate with use of pulse oximeter: 69 bpm. Oxygen at room temperature: 96%. Starting pain: 2/10 ROM: Range of motion with use of goniometer: Cervical Spine range of motion: . - flexion: 0-21. - extension: 0-35. - Lateral flexion: R 0-29 , L 0-22. - Rotation: R 0-44 ,L 0-46. Completed quick screen of upper extremity and lower extrmity ROM which did well and noted deficits noted. Cerivcal spined limited. Strength: Manual muscle testing completed of the following to determine patient strength needed to complete job ? related tasks: Upper extremity: Shoulder: -Shoulder flexion: R 4+/5 , L 4+/5. oDynamometer: R 12.2 lbs , L 13.6 lbs. -Shoulder extension: R 4+/5 , L 4+/5. oDynamometer: R 12.5, L 13.5 lbs. -Shoulder Adduction: R 4+/5 , L 4+/5. oDynamometer: R 13.0 , L 13.0 lbs. -Shoulder Abduction: R 4+/5 , L 4+/5. oDynamometer: R 12.1 , L 13.6 lbs. -Internal Rotation: R 4+/5 , L4+/5. oDynamometer: R 11.7 , L 16.5 lbs. -External Rotation: R 4+/5 , L4+/5. oDynamometer: R 15.1 , L 14.5 lbs. Elbow: -Elbow Flexion: R 4+/5 , L4+/5. oDynamometer: R 13.7 , L 16.0 lbs. -Elbow Extension: R 4+/5 , L 4+/5. oDynamometer: R 18.3, L 15. 9 lbs. Completed dyanometer testing at distal testing locations of upper extremity. Pain did increased with moved to 2-3/10 with need to stand and move around as noted this is type of pain that will calm down if I move a little bit. Lower Extremity: Lower Body: Hip flexion: R , L. oDynamometer: R , L. Hip abduction: R , L. oDynamometer: R , L. Hip Adduction: R , L. oDynamometer: R , L. Knee extension: R , L. oDynamometer: R , L. Knee flexion: R, L. oDynamometer: R , L. Ankle dorsiflexion: R, L. oDynamometer: R , L. Ankle plantarflexion: R , L. oDynamometer: R , L Right Dietetics Professor Strength Average: 45.33 Right Dietetics Professor Strength Percentile: 88 Left Dietetics Professor Strength Average: 62.66 Left Dietetics Professor Strength Percentile: about 92 nd Right Lateral Pinch Average: 17.00 Right Lateral Pinch Percentile: 25th Left Lateral Pinch Average: 19.33 Left Lateral Pinch Percentile: about 75th Right Tripod Pinch Average: 14.33 Right Tripod Pinch Percentile: about 25th Left Tripod Pinch Average: 20.66 Left Tripod Pinch Percentile: about 80th Comments: 5 span service line coordinator testing: Position 1: R 45 , L 56. Position 2: R 61 , L 85. Position 3: R 49 , L 67. Position 4: R 50 , L 79. Position 5: R 60 , L 69. A coefficient of variation greater than 15 % indicated decreased consistency of effort. Coefficient of variation: R 13%, L 16%. Consistency of Effort: R consisent; L inconsisent Sensation: Sensory Testing: Sensation testing completed on hands with monofilament touch test. A score of normal on touch test is 2.83 and within normal range with just some discrepancies for light touch is between 3.22-3.61. The higher the number the more complications related to patient?s ability to perceive touch related sensory stimuli. R hand: 2nd 3.84 , 3rd 3.61 , 4th 3.22 , 5th 2.83 , thumb 3.22. L hand: 2nd 2.83 , 3rd 3.22 , 4th 3.22 , 5th 2.83 , thumb 3.22 Fine Motor: Completed the Purdue Pegboard test to further determine the patient?s ability to complete 2-3 step tasks, assess fine motor control, and general dexterity needed to complete assembly like work. This test was completed in standing with table set at 36 inches from floor height. The results are as follows: Right Hand: 11. -Percentile: 3rd. Left Hand: 11. -Percentile 5th. Both Hands: 10. -Percentile: 13th. R+ L+ Both: 32. -percentile: 5th. Assembly: 5. -percentile: below 1st. Pain after task 11/02. Blood pressure with Omron automatic wrist cuff post task: 168/92 mmHg; seated break initated. Noted some increased pain but anxious often throughout session. Heart rate with Omron automatic wrist cuff: 67 bpm. Balance: Functional reach test is used to determine static balance in patients. A score of 15 is normal and less than 10 increases risk of falling. A score of 6 or less significantly increases a patient?s risk of falling. [place] 1: 10. [place] 2: 11. [place] 3: 12. Blood pressure post task with omron wrist cuff: 160/99 mmHg. Heart rate with Omron wrist cuff: 64 bpm. I don't know why my anxiety is so bad today. Made compensation of limited hip flexion but able to complete within nromal limited for static balance. Static balance intact. Average: 11. Functional Gait Assessment (FGA) is a dynamic balance test to determine vestibular functioning and general dynamic balance ability of patient 18-65+. This assessment can be used with clients of various backgrounds to determine functional dynamic balance needed to complete every day work related tasks. 1.Gait Level Surface: 2. 2.Change in Gait Speed: 2. 3.Gait with horizontal head turns: 3. 4.Gait with vertical head turns:4. 5.Gait and pivot turn:3. Short seated break post verticla head movements as noted some dizzness. Blood pressure with use of Omron wrist cuff: 148/103. Heart rate with Omron wrist cuff: 63 bpm. 6.Step over obstacle: 3. 7.Gait with narrow base of support: 3. 8.Gait with eyes closed: 2. 9.Ambulating Backwards: 2. Heart rate with use of pulse oximeter prior to stairs: 69 bpm. 10.Steps: 3. Heart rate with use of pulse oximeter post to stairs: 85 bpm. Total Score: 25 /maximum score 30. Scored at minimum score of age related peers but within normal limits based on score. - Non Material Handling Activities Bending: Needed bathroom break prior to starting tasks. Second bathroom break of session. Heart rate prior to beginning with use of pulse oximeter: 84 bpm. 3x, 10x in 40 seconds, and 10x faster in 22 seconds. Completed tasks with fair body mechanics. Good spinal alignment maintained. Increased forward bending from hips with need for flexion to simultaneously occur at knee. Noted ?this is going to make me sore?. Heart rate maintained. Heart rate posttest with use of pulse oximeter: 91 bpm. Perceived pain: 3.5/10 Squatting: Heart rate prior to beginning with use of pulse oximeter: 81 bpm. 3x, 10x in 22 seconds- decided to take seated break and felt dizzy, and 10x faster in 24 seconds. Completed with mild compensations of right sided lateral leaning. Fair spinal alignment. Mechanical compensations noted with during tasks but no deficits observed. Heart rate posttest with use of pulse oximeter: 91 bpm. Perceived pain:3.5/10 Kneeling: Heart rate prior to beginning with use of pulse oximeter:72 bpm. 3x, 10x in 32 seconds, and 10x faster in 29 seconds. Completed kneel with fair body mechanics. Completed with need for external support of chair to move from kneel to upright position. Increased compensations and mechanical changes observed. Some frown and grimace noted. Increase in heart rate noted which appears to be due to pain and extertion. Heart rate posttest with use of pulse oximeter: 100 bpm. Percieved pain: 4/10. Blood pressure post task: 148/90 mmHg Reaching out/up: Heart rate prior to beginning with use of pulse oximeter: 85 bpm. Completed reaching out in standing position: 3x, 10x in 17 seconds, and 10x faster in 16 seconds. Heart rate posttest with use of pulse oximeter: 77 bpm. Completed overhead reaching in standinx, 10x in 23 seconds, 10 x faster 15 seconds. Heart rate prior to post task with use of pulse oximeter: 82 bpm. Completed reaching out and up from standing position with fair body mechanics. Completed with mild cervical flexion with overhead reaching. Fair spinal alignment. Mild mechanical changes observed. No mechanical compensations observed. Perceived pain: 4/10 Walking: Completed consistent walking task for 15 minutes. Good body mechanics and some protection movements noted for cervical spine. Completed 340 feet eight times for a total of 2760 with increased walking of 40 feet at end of task to return to occupational therapy area. Noted felt dizzy and requested seated break. Completed 2 minute seated break. Noted he ?walks acre yard daily and that is uneven ground?. Blood pressure with use of Omron automated wrist cuff post task: 120/79 mmHg. Heart rate with use of Omron with automotive cuff: 70 bpm. Standing: Completed 24 minutes of consecutive standing tasks and then another 25 minutes during material handling for both static and dynamic tasks around therapy gym. Often observed to be weight shifting with hand on hips. Mechanical changes noted with increased thoracic flexion as tasks continued. Sitting: Able to sit for 25-30 minutes with need to weight shift off/on. Noted ' I often change positions to manage neck pain. Climbing Stairs: Heart rate prior to beginning with use of pulse oximeter: 69 bpm. Able to complete 10 stairs with reciprocal foot pattern and no use of handrails. Mild antalgic gait observed to left lower extremity. Mild increase in heart rate believed to be due to extertion. Heart rate posttest with use of pulse oximeter: 85 bpm. Pain rated: 3/10 - Dynamic Occasional Lifting Capacity Floor Lift: Heart rate prior to beginning with use of pulse oximeter: 89 bpm. Occasional Liftinx 25 lbs. Frequent liftinx 15 lbs. Fair body mechanics. Increased cervical flexion with task decreasing spinal alignment. Some winces noted but generally fair body mechanics. Increase in heart rate observed believed to be due to exertion and pain. Heart rate posttest with use of pulse oximeter: 114 bpm. Perceived pain: 3/10 Knee Lift: Heart rate prior to beginning with use of pulse oximeter: 89 bpm. Occasional Liftinx 20 lbs. Frequent liftinx 15 lbs. Increased stiffness and decreased spinal alignment noted due to some pain like behaviors. Fair body mechanics but increased compensation noted through decreased spinal alignment. No increase in heart rate with task but noted increase in pain. Pain could potentially be related to task rather than movement based on heart rate. Heart rate posttest with use of pulse oximeter: 89. Perceived pain: 4/10 it's pushing a 5/10. Waist Lift: Heart rate prior to beginning with use of pulse oximeter: 85 bpm. Occasional Liftinx 30 lbs. Frequent liftinx 20 lbs. Completed with fair body mechanics. Mechanical compensations noted of increased carry close to body with use of trunk extension to promote placement of box at designated area. Decreased spinal alignment. Mechanical changes observed with task. Some holding of breath and pain like behaviors observed. Perceived pain: 5/10 Shoulder Lift: Heart rate prior to beginning with use of pulse oximeter: 84 bpm. Occasional Liftinx 30 lbs. Frequent liftinx 20lbs. Held breath, fair mechanics. Noted to therapist he was ?pacing? as noted pain increasing. No increase in heart rate observed but pain like behaviors observed and verbalized. Heart rate posttest with use of pulse oximeter: 81 bpm. Perceived pain: 5/10. Blood pressure post task with use of Omron wrist cuff: 139/92. Pain increasing as material handling tasks progressed. Overhead Lift: Heart rate prior to beginning with use of pulse oximeter: 89 bpm. Occasional Liftinx 20 lbs. Frequent liftinx 15 lbs. Completed with fair body mechanics. Increased calculating machine mechanic changes observed through increased compensations of cervical flexion. Pain like behaviors of holding breath observed. Heart rate posttest with use of pulse oximeter: 92 bpm. Perceived pain: 5/10 Carrying: Heart rate prior to beginning with use of pulse oximeter: 84 bpm. Occasional Liftinx 20 lbs. Frequent liftinx 15 lbs. Noted burning back of head and C1 dermatome area. Decreased spinal alignment noted with increased cervical flexion observed with carrying tasks and slight lateral leaning to right and left cervical sides with task. Increase in pain verbalized but increase in heart rate within normal range for exertion tasks. Some pain behaviors observed with holding breath. Heart rate posttest with use of pulse oximeter: 91 bpm. Perceived pain: 5.5/10 Comments: Filled out paperwork at the end. Needed to continually switch positions with body as wella s upper extremity due to increased symptoms of pain and burning starting at cervical spine and reported to be running down arms. Blood pressure with use of Omron wrist cuff: 132/81 mmHg. Heart rate with Omron wrist cuff: 87 bpm
--- NOTE | 2019-03-09 16:38 | HP.OTFCE.D ---
FCE D/C Summary - Discharge RAMA KENNY was seen for a one time visit for an FCE on 03/06/19 and is discharged.
--- NOTE | 2019-04-09 18:42 | HP.OTCOM_ITS ---
OT Communication Note 04/09/[address] Neymar Jeffery, DO Major Luque arrived to follow- up appointment on this date of 04/09/19 to completed pushing and pulling evaluation as part of functional capacity evaluation. Due to his lack of ability to work for the last five years it was not completed at original assessment but was required by [facility] and completed today. Pushing Ability Occasional (1-33%) 35 lbs NOTE: Should be able to tolerated occasional push/pull throughout a work day of 35 lbs of less. Frequent (34-66%) 18 lbs NOTE: Would not recommend completing frequently based on cervical spine complications. Constant (67-100%) 7 lbs NOTE: Would not recommend completing constant based on cervical spine complications. PDL Light Medium Pulling Ability Occasional (1-33%) 35 lbs NOTE: Should be able to tolerated occasional push/pull throughout a work day of 35 lbs or less. Frequent (34-66%) 18 lbs NOTE: Would not recommend completing frequently based on cervical spine complications. Constant (67-100%) 7 lbs NOTE: Would not recommend completing constant based on cervical spine complications. PDL Light Medium Major noted he did not take pain medication as previously instructed by therapist to get accurate baseline assessment. He completed the following: Starting Diagnostics: - Heart rate: 77 bpm Nikko Pain Questionnaire is a self-report pain assessment to determine a patient?s accurate psychodynamics for accurate pain rating. A score of 30 or h igh indicates poor psychodynamics and the greater probability of decreased accuracy with accurate pain reporting. Pre- Nikko: 38 Post Nikko: 70 Inconsistencies with perceived pain based on Nikko. Completed push and pulling abilities as follows with [employer] (BTE) machine. Completed the following through static comparison assessment: ? Pull with shoulder at 45-degree angle and apparatus at hip height: o Right upper extremity ? Weight: 10.4 lbs ? Coefficient of variation: 14.2 % o Left upper extremity ? Weight: 11.9 lbs ? Coefficient of variation: 6.0 % o Calculated difference between right and left upper extremities: 14.4 % ? Push with shoulder at 45-degree angle and apparatus at hip height: o Right upper extremity ? Weight: 14.6 lbs ? Coefficient of variation: 10% o Left upper extremity ? Weight: 13.7 lbs ? Coefficient of variation: 6.5% o Calculated difference between right and left upper extremities: 6.1% Completed the following through static comparison assessment with shoulder at 90 degree angle: ? Pull with shoulder at 90 degree angle: o Right upper extremity ? Weight: 109 in. in lbs ? Coefficient of variation: 3.6 % o Left upper extremity ? Weight: 159 in in lbs ? Coefficient of variation:4.9 % o Difference between right and left: 8.5% ? Push with shoulder at 90 degree angle: o Right upper extremity ? Weight: 146 in in lbs ? Coefficient of variation: 14.1% o Left upper extremity ? Weight: 134 in in lbs ? Coefficient of variation: 4.8 % o Calculated difference between right and left upper extremities: 6.1% Major completed further push and pull assessment with [place] sled by Tiarra Casillas. The sled weight prior to added weight is 80 lbs. The sled was completed on carpet which acts as friction force. Completed four total repetitions with weight added between repetitions. Completed as follows: Completed 20 feet for Push and Pull on carpet: ? Completed 20 feet for Push and Pull o Beginning heart rate with use of finger pulse oximeter: 77 bpm o Weight: 25 ? Peak force: The peak measured force to complete movement of pushing of the sled with added 25 lbs was 25 lbs for pushing and 22 lbs for pulling on carpeted surface. This meaning Major is able to complete the peak force to complete the task. complete the peak force needed to push the sled at 25 lbs for 20 feet. o Ending heart rate with use of finger pulse oximeter: 91 bpm o Observation: Completed with good spinal alignment and fair body mechanics. Increase in heart rate believed to be due to exertion. ? Completed 20 feet for Push and Pull o Beginning heart rate with use of finger pulse oximeter: 85 bpm o Weight: 35 ? Peak force: The peak measured force to complete movement of pushing of the sled with added 25 lbs was 25 lbs for pushing and 22 lbs for pulling on carpeted surface. This meaning Major is able to complete the peak force to complete the task. o Ending heart rate with use of finger pulse oximeter: 91 bpm o Observation: Completed with fair body mechanics and good spinal alignment. Some increase in guarding noted of cervical spine. ? Completed 20 feet for Push and Pull o Beginning heart rate with use of finger pulse oximeter: 85 bpm o Weight: 45 ? Peak force to generate movement against friction: The peak measured force to complete movement of pushing of the sled with added 50 lbs was 29 lbs for pushing and 26 lbs for pulling on carpeted surface. This meaning Major is able to complete the peak force to overcome friction to complete the task. ? Push: 29 ? Pull: 26 o Ending heart rate with use of finger pulse oximeter: 97 bpm o Observation: Completed fair body mechanics. No observable mechanical changes noted but pain behaviors of holding breath observed. ? Completed 20 feet for Push and Pull o Beginning heart rate with use of finger pulse oximeter: 92 bpm o Weight: 50 ? Peak force to generate movement against friction: The peak measured force to complete movement of pushing of the sled with an added 50 lbs was 29 lbs for pushing and 26 lbs for pulling on carpeted surface. This meaning Major is able to complete the peak force to overcome friction to complete the task. ? Push: 29 ? Pull: 26 o Ending heart rate with use of finger pulse oximeter: 99 bpm ? Observation: Completed task with fair spinal alignment but guarding of neck. Completed with fair body mechanics and increased holding of breath. Stopped at 15 feet for pushing and encouraged to complete task and minimal mechanical changes observed. Slight increased in heart rate due to exertion. Noted at completion of task pain was at 6/10. Pain unreliable based on Nikko. Refused to complete more weight as noted increase in pain to 6/10. Behaviors: Behaviors noted at end of task post 50 lbs push and pull 20 feet of ?I?m done, I?m done. I?m not doing it anymore. I don?t? know what they?re gaining by making me do this. My pain is starting to increase pressure.? Based on performance and past medical history, he is able to complete occasional push pull of 35 lbs. Due to cervical spine complication it would not be recommended he completes this task frequently at this time as he was unable to complete 5x repetitions without increase in symptoms. This further meaning frequently push/pull would likely cause increase in pain if completed repetitively. Sincerely, Jennifer Romero, OTR/L Contact Information
--- NOTE | 2019-05-08 09:21 | HP.OTFCE.D ---
FCE D/C Summary - Discharge RAMA KENNY was seen for a for an FCE on 03/06/19 and will be discharged.
== END 2019-03-06 19:00 | disposition home or self-care (01) ==
LOC: OT 08:12
PROVIDERS: Family Provider Internal Medicine; PCP Internal Medicine; Referring Provider Family Medicine; Visit Provider Family Medicine
DX: M54.2 Cervicalgia (principal); R51 Headache
CPT/HCPCS: 97750

== ENCOUNTER → 2019-03-10 | Outpatient (CLI) | payer OTHER, SELFPAY ==
[2019-02-23 13:20] VITALS: BMI 31.1
[2019-03-10 10:15] LABS: Absolute Lymphocyte Count 2.43 X10^3/uL (0.83-4.51); Absolute Neutrophil Count 4.2 X10^3/uL (2.0-7.7); Basophil# 0.07 X10^3/uL; Basophil% 0.9 % (0-1); Eosinophil# 0.25 X10^3/uL; Eosinophils% 3.3 % (0-5); Hematocrit 42.8 % (40-54); Hemoglobin 14.5 g/dL (13.0-16.5); Lymphocyte # 2.43 X10^3/ul (4.0); Lymphocyte % 31.8 % (19-41); Mean Corp Hgb Conc 33.9 g/dL (32-36); Mean Corpuscular Hgb 33.7 pg (27.0-32.0); Mean Corpuscular Volume 99.5 fL (80-94); Mean Platelet Vol. 10.7 fl (6.2-12.0); Monocyte# 0.69 X10^3/uL; NRBC Flagged by Analyzer 0 % (0-5); Neutrophil # 4.19 X10^3/uL (2.7-7.7); Neutrophil % 54.9 % (47-70); Platelet Count 234 K/mm3 (150-450); RBC Distribution Width CV 12.3 % (11.6-14.6); RBC Distribution Width SD 44.6 fl (35.1-43.9); White Blood Count 7.6 K/mm3 (4.4-11.0)
[2019-03-10 10:41] LABS: ALB/GLOB Ratio 1.1 RATIO (0.9-2.4); AST(SGOT) 29 U/L (15-37); Alanine Aminotransfer ALT/SGPT 55 U/L (16-61); Albumin, Serum 3.7 g/dL (3.2-5.0); Alkaline Phosphatase 84 U/L (45-117); Anion Gap 5 (5-15); BUN 18 mg/dL (7-18); BUN/Creat Ratio 21.1 RATIO (10-20); Calcium,Total 8.8 mg/dL (8.5-10.1); Chloride 112 mmol/L (98-107); Cholesterol 147 mg/dL (200); Creatinine, Serum 0.85 mg/dL (0.70-1.30); EST Glomerular Filtration Rate 99 mL/min (>60); Est Glom Filt Rate - Afr Amer 120 mL/min (>60); Globulin 3.5 g/dL (2.2-4.2); Glucose 92 mg/dL (74-106); High Density Lipoprotein 36 mg/dL; Protein, Total 7.2 g/dL (6.4-8.2); Sodium Level 140 mmol/L (136-145); Triglycerides 137 mg/dL; Very Low Density Lipoprotein 27 mg/dL (5-40)
== END | disposition home or self-care (01) ==
LOC: MTLAB 08:37
PROVIDERS: Family Provider Internal Medicine; PCP Internal Medicine; Referring Provider Internal Medicine; Visit Provider Internal Medicine
DX: I10 Essential (primary) hypertension (principal); K21.9 Gastro-esophageal reflux disease without esophagitis
CPT/HCPCS: 36415; 80053; 80061; 85025

== ENCOUNTER → 2019-12-11 11:20 | Outpatient (CLI) | payer OTHER, SELFPAY ==
[2019-12-01 11:01] VITALS: BMI 31.1
[2019-12-11 11:44] LABS: Anion Gap 6 (5-15); BUN 18 mg/dL (7-18); Calcium,Total 9.1 mg/dL (8.5-10.1); Chloride 107 mmol/L (98-107); Creatinine, Serum 0.86 mg/dL (0.70-1.30); EST Glomerular Filtration Rate 98 mL/min (>60); Est Glom Filt Rate - Afr Amer 119 mL/min (>60); Glucose 81 mg/dL (74-106); Potassium 3.6 mmol/L (3.5-5.1); Sodium Level 140 mmol/L (136-145)
== END ==
LOC: LABSPEC 11:22
PROVIDERS: PCP Internal Medicine; Referring Provider Internal Medicine; Visit Provider Internal Medicine
DX: I10 Essential (primary) hypertension (principal)
CPT/HCPCS: 80048

== ENCOUNTER 2020-01-09 19:02 | Emergency (ER) | payer OTHER, SELFPAY ==
[2020-01-08 17:49] VITALS: BMI 31.1
[2020-01-09 19:03] VITALS: BP 155/93; PULSE 83; RESP 17; TEMP 36.9; O2SAT 96; BMI 32.4
--- NOTE | 2020-01-09 19:40 | ED.VISSUMM ---
- ER Visit Summary Date of Service: 01/09/20 Chief Complaint: Injury to right thigh History of Present Illness: The patient is a [address] Jacobson. He reports that 6 days ago he was scratched to the right thigh by his cat. He was started on doxycycline 3 days ago as he has a history of MRSA following a cat scratch 2 years ago. He reports that his pain has gotten much better. However, he noted a pimple on the medial right thigh tonight and is concerned that he has a worsening infection. Patient denies any constitutional symptoms. No fever, chills, nausea, or vomiting. Physical Examination: Vitals: Stable. Afebrile. General: Well-nourished and well-developed. Head: Normocephalic atraumatic. Neck: Supple, no lymphadenopathy. No JVD. Nontender. Cardiovascular: Regular rate and rhythm. No murmurs. Respiratory: No respiratory distress. Clear to auscultation bilaterally. Abdominal: Soft, nontender, nondistended, normal bowel sounds. No guarding, rebound, or peritoneal signs. Back: Nontender. Extremities: Nontender, no edema. Skin: Normal color, no rash. To the medial distal right thigh there is a 1 mm pustule without surrounding erythema or induration. I suspect this is actually an ingrown hair. There is no other rash or evidence of infection. Neurologic: Alert and oriented ?3. Cranial nerves II through XII are intact. Normal strength and sensation. Psych: Normal affect. Emergency Department Course and Treatment: The patient was reassured. There is no indication for an I&D at this point. Treatment Plan: Patient will be discharged with symptomatic care. Continue his doxycycline. He is given a prescription for Bactroban ointment. Will use warm compresses to the area follow-up with his primary care physician in 2 days for a wound check. Return to the emergency department for any worsening symptoms. Disposition: To home in improved and stable condition. Impression: 1. Cat scratch right leg. This note was generated with [employer] dictation software. It may contain incorrect words, spelling, and punctuation that were not noted in review of the chart prior to signing ED Disposition - Plan for ED Patient: Disposition: Home or Assisted Living Instructions: ED Skin Infec MRSA Suspect Conf Prescriptions: Mupirocin [Bactroban] 1 applic TOPICAL TID #1 tube Prescription Printed Referrals: Francisco Jacobson MD [Primary Care Provider] - 2 Days for wound check
[2020-01-09 19:44] VITALS: RESP 16
[2020-01-09 19:50] VITALS: BP 155/93; PULSE 83; RESP 16; RESP 17; TEMP 36.9; O2SAT 96
--- NOTE | 2020-01-09 19:55 | ED.RN ---
REVIEWED D/C INSTRUCTIONS, FOLLOW UP CARE, PRESCRIPTION, AND S/S THAT WOULD WARRANT A RETURN TO THE ED WITH PT. PT VERBALIZED AN UNDERSTANDING AND DENIES FURTHER QUESTIONS FOR THIS RN. PT SKIN P/W/D, RESP EVEN AND UNLABORED, PT A&O X 3, NO DISTRESS NOTED. PT AMBULATED OUT OF ED, GAIT STEADY.
== END 2020-01-09 20:04 | disposition home or self-care (01) ==
LOC: ED 19:59
PROVIDERS: Emergency Provider Emergency Medicine; PCP Internal Medicine
DX: S70.311A Abrasion, right thigh, initial encounter (principal); F17.200 Nicotine dependence, unspecified, uncomplicated; I10 Essential (primary) hypertension; E78.00 Pure hypercholesterolemia, unspecified; W55.03XA Scratched by cat, initial encounter
CPT/HCPCS: 99282

== ENCOUNTER → 2020-04-28 10:12 | Outpatient (CLI) | payer OTHER, SELFPAY ==
[2020-03-07 14:02] VITALS: BMI 32.4
[2020-04-28 12:23] LABS: Absolute Lymphocyte Count 2.07 X10^3/uL (0.83-4.51); Absolute Neutrophil Count 4.8 X10^3/uL (2.0-7.7); Basophil# 0.05 X10^3/uL; Basophil% 0.7 % (0-1); Eosinophil# 0.14 X10^3/uL; Eosinophils% 1.8 % (0-5); Hematocrit 44.6 % (40-54); Hemoglobin 15.2 g/dL (13.0-16.5); Lymphocyte # 2.07 X10^3/ul (4.0); Lymphocyte % 27.2 % (19-41); Mean Corp Hgb Conc 34.1 g/dL (32-36); Mean Corpuscular Hgb 34.2 pg (27.0-32.0); Mean Corpuscular Volume 100.5 fL (80-94); Mean Platelet Vol. 10.8 fl (6.2-12.0); Monocyte# 0.58 X10^3/uL; Monocyte% 7.6 % (0-10); NRBC Flagged by Analyzer 0 % (0-5); Neutrophil # 4.75 X10^3/uL (2.7-7.7); Neutrophil % 62.4 % (47-70); Platelet Count 273 K/mm3 (150-450); RBC Distribution Width CV 12.2 % (11.6-14.6); RBC Distribution Width SD 45.4 fl (35.1-43.9); Red Blood Count 4.44 M/mm3 (4.6-6.2); White Blood Count 7.6 K/mm3 (4.4-11.0)
[2020-04-28 12:37] LABS: Cholesterol 169 mg/dL (200); High Density Lipoprotein 51 mg/dL; Triglycerides 180 mg/dL; Very Low Density Lipoprotein 36 mg/dL (5-40)
== END ==
PROVIDERS: PCP Internal Medicine; Referring Provider Internal Medicine; Visit Provider Internal Medicine
DX: F41.9 Anxiety disorder, unspecified (principal); F32.9 Major depressive disorder, single episode, unspecified; I10 Essential (primary) hypertension; E78.5 Hyperlipidemia, unspecified
CPT/HCPCS: 36415; 80061; 85025

== ENCOUNTER → 2020-06-07 14:10 | Outpatient (CLI) | payer OTHER, SELFPAY ==
[2020-06-07 13:25] VITALS: BMI 31.8
[2020-06-07 15:57] LABS: AST(SGOT) 32 U/L (15-37); Alanine Aminotransfer ALT/SGPT 76 U/L (16-61); Albumin, Serum 3.7 g/dL (3.2-5.0); Alkaline Phosphatase 83 U/L (45-117); Anion Gap 6 (5-15); BUN 13 mg/dL (7-18); BUN/Creat Ratio 12.6 RATIO (10-20); Calcium,Total 8.7 mg/dL (8.5-10.1); Chloride 107 mmol/L (98-107); Creatinine, Serum 1.03 mg/dL (0.70-1.30); EST Glomerular Filtration Rate 79 mL/min (>60); Est Glom Filt Rate - Afr Amer 96 mL/min (>60); Globulin 3.8 g/dL (2.2-4.2); Glucose 87 mg/dL (74-106); Protein, Total 7.5 g/dL (6.4-8.2); Sodium Level 140 mmol/L (136-145)
== END ==
PROVIDERS: PCP Internal Medicine; Referring Provider Internal Medicine; Visit Provider Internal Medicine
DX: I10 Essential (primary) hypertension (principal)
CPT/HCPCS: 36415; 80053

== ENCOUNTER → 2020-08-29 11:57 | Outpatient (CLI) | payer OTHER, SELFPAY ==
[2020-08-29 11:19] VITALS: BMI 31.0
[2020-08-29 11:59] LABS: Bacteria 0 SEEN /hpf (None Seen); Red Blood Cells-Urine 0 SEEN /hpf (0-5); Squamous Epithelial Cells - UA 0 SEEN /hpf (0-5)
[2020-08-29 15:32] LABS: Absolute Lymphocyte Count 1.68 X10^3/uL (0.83-4.51); Absolute Neutrophil Count 5.9 X10^3/uL (2.0-7.7); Basophil# 0.04 X10^3/uL; Basophil% 0.5 % (0-1); Eosinophil# 0.07 X10^3/uL; Eosinophils% 0.8 % (0-5); Hematocrit 44.1 % (40-54); Hemoglobin 15.4 g/dL (13.0-16.5); Lymphocyte # 1.68 X10^3/ul (4.0); Lymphocyte % 20.2 % (19-41); Mean Corp Hgb Conc 34.9 g/dL (32-36); Mean Corpuscular Hgb 35.6 pg (27.0-32.0); Mean Corpuscular Volume 102.1 fL (80-94); Monocyte# 0.62 X10^3/uL; Monocyte% 7.5 % (0-10); NRBC Flagged by Analyzer 0 % (0-5); Neutrophil # 5.88 X10^3/uL (2.7-7.7); Neutrophil % 70.9 % (47-70); Platelet Count 242 K/mm3 (150-450); RBC Distribution Width CV 12.3 % (11.6-14.6); RBC Distribution Width SD 45.6 fl (35.1-43.9); Red Blood Count 4.32 M/mm3 (4.6-6.2); White Blood Count 8.3 K/mm3 (4.4-11.0)
[2020-08-29 15:39] LABS: Color, Urine Yellow (Yellow); Glucose, Dipstick Normal (Normal); Ketone-Dipstick 15 mg/dl (Negative); Leukocyte Esterase-Dipstick Negative /ul (Negative); Nitrite-Dipstick Negative (Negative); Occult Blood-Urine 10 /ul (Negative); Protein-Dipstick 15 mg/dl (Negative); Specific Gravity, Urine 1.025 (1.002-1.030); Urine Bilirubin Dipstick Negative (Negative); Urine Clarity Clear (Clear); Urine Urobilinogen 1 mg/dl (Normal)
[2020-08-29 15:56] LABS: ALB/GLOB Ratio 1.1 RATIO (0.9-2.4); AST(SGOT) 25 U/L (15-37); Alanine Aminotransfer ALT/SGPT 57 U/L (16-61); Albumin, Serum 4.1 g/dL (3.2-5.0); Alkaline Phosphatase 93 U/L (45-117); Anion Gap 8 (5-15); BUN 16 mg/dL (7-18); BUN/Creat Ratio 16.8 RATIO (10-20); Calcium,Total 9.2 mg/dL (8.5-10.1); Chloride 105 mmol/L (98-107); Creatinine, Serum 0.96 mg/dL (0.70-1.30); EST Glomerular Filtration Rate 87 mL/min (>60); Est Glom Filt Rate - Afr Amer 105 mL/min (>60); Globulin 3.8 g/dL (2.2-4.2); Glucose 79 mg/dL (74-106); Potassium 3.8 mmol/L (3.5-5.1); Protein, Total 7.9 g/dL (6.4-8.2); Sodium Level 138 mmol/L (136-145)
[2020-08-29 16:21] LABS: Calcium Oxalate Crystals Ur 1+ /hpf (<or=2+); Mucous, Urine 1+ /hpf (<or=2+)
[2020-08-29 16:22] LABS: White Blood Cells 0 SEEN /hpf (0-5)
== END ==
PROVIDERS: PCP Internal Medicine; Referring Provider Internal Medicine; Visit Provider Internal Medicine
DX: R10.9 Unspecified abdominal pain (principal); R35.1 Nocturia; R53.83 Other fatigue
CPT/HCPCS: 36415; 80053; 81001; 85025

== ENCOUNTER → 2020-09-03 | Outpatient (CLI) | payer OTHER, SELFPAY ==
[2020-08-29 11:19] VITALS: BMI 31.0
--- NOTE | 2020-09-03 08:51 | CT_ITS ---
STUDY: CT ABDOMEN AND PELVIS WITHOUT CONTRAST REASON FOR EXAM: Male, 55 years old. RIGHT FLANK PAIN WITH FATIGUE AND DIARRHEA X 1 MONTH RADIATION DOSAGE (If Supplied By Facility): CTDIvol = ( 13.46 ) mGy, DLP = ( 790.26 ) mGycm TECHNIQUE: Transaxial images were obtained from the dome of the diaphragm to the symphysis pubis without oral contrast, and without intravenous contrast. Sagittal and coronal images were reconstructed. Individualized dose optimization techniques were used for this CT. COMPARISON: 10/24/2016 FINDINGS: The visualized lung bases are unremarkable. The visualized portions of the heart are within normal limits. Normal liver. Normal gallbladder and extrahepatic biliary system. Normal spleen. Normal pancreas. Normal bilateral adrenal glands. Bilateral small nonobstructing renal stones. No hydronephrosis, ureteral stone, or ureteral dilatation. Normal visualized stomach. Several small lymph nodes and mild edema of the mesenteric fat of the small bowel mesentery suggestive of gastroenteritis or mesenteric adenitis. Normal colon. The appendix is visualized and appears normal. Normal abdominal aorta. Normal inferior vena cava. Normal retroperitoneum. Normal urinary bladder. Normal abdominal wall. Normal osseous structures. CT/Abdomen/Pelvis without Cont IMPRESSION: 1. Bilateral nonobstructing renal stones. 2. Suspect gastroenteritis or mesenteric adenitis. Electronically Signed: Den Magallon MD at 9:17 EST Tel , Service support ,
== END | disposition home or self-care (01) ==
LOC: CT 08:43
PROVIDERS: PCP Internal Medicine; Referring Provider Internal Medicine; Visit Provider Internal Medicine
DX: R10.9 Unspecified abdominal pain (principal); R35.1 Nocturia; R53.83 Other fatigue
CPT/HCPCS: 74176; U0005

== ENCOUNTER 2020-10-23 00:39 | Observation (INO) | payer OTHER, SELFPAY ==
[2020-09-08 14:16] VITALS: BMI 31.4
[2020-10-23] VITALS (14 sets, daily range): BP systolic 114–161; BP diastolic 68–103; PULSE 67–136; RESP 12–20; TEMP 36.5–37.1; O2SAT 94–99; BMI 32.1; BMI 31.4; BMI 96.6
--- NOTE | 2020-10-23 01:12 | RAD_ITS ---
STUDY: X-RAY CHEST REASON FOR EXAM: Male, 55 years old. chest pain TECHNIQUE: Single AP portable view of the chest. COMPARISON: 02/04/2012. FINDINGS: The lungs are clear and expanded. There is no demonstrated pleural abnormality. Normal size heart. Normal mediastinum and coby. Normal visualized pulmonary arteries. Normal visualized aortic arch and descending thoracic aorta. Normal visualized thoracic spine. Normal visualized ribs, clavicles, and shoulders. There is no demonstrated abnormality of the visualized soft tissue structures of the upper abdomen. RAD/Chest 1 View (Portable) IMPRESSION: Normal x-ray examination of the chest for age. Electronically Signed: Debra Lange MD at 1:33 EST , Service support ,
--- NOTE | 2020-10-23 01:12 | EKG12_ITS ---
Test Reason : CP Blood Pressure : / mmHG Vent. Rate : 137 BPM Atrial Rate : 137 BPM P-R Int : 154 ms QRS Dur : 098 ms QT Int : 272 ms P-R-T Axes : -84 -43 037 degrees QTc Int : 410 ms Atrial Flutter Left axis deviation Incomplete right bundle branch block Nonspecific ST abnormality Abnormal ECG Confirmed by JAX LAM, SOFIYA ([id number]), technical editor BULMARO BARNES ([id number]) on 10/24/2020 10:09:39 AM Referred By: JANE Confirmed By:SOFIYA CAMARA MD
--- NOTE | 2020-10-23 01:13 | ED.VIS.GEN ---
History of Present Illness Chief Complaint: Chest Pain Detail of Chief Complaint: palpitations Informant: Patient Onset: Hours - 1 Context: Sudden Onset - After laying down tonight Timing: Continuous Quality: racing Location: chest Current Severity: Mild Maximum Severity: Moderate Worsened by: nothing in particular Relieved by: nothing Associated Symptoms: mild upper substernal chest dull ache, transient and gone Narrative: Patient states he had sudden onset of palpitations about an hour prior to arrival, never had this before. Started just after lying down after having 3 beers, a couple slices of pizza, and having a heated conversation about politics with a friend. He checked his blood pressure with a home cuff and it said he was in the 180s systolic along with a pulse of about 130 that he confirmed by checking again. He had some mild dull chest aching that did not last very long and was nonpleuritic. He denies any presyncopal or syncopal symptoms. No dyspnea. No recent leg pain or swelling. No history of DVT or PE. No recent immobilization, travel, hospitalization, or surgery. No recent illness. Only [id number] medication he has taken lately was aspirin just prior to arrival after his symptoms started. Usually drinks about a pot of coffee per day, but states he has had none in the last 2 days. Occasionally he feels a brief flutter in his chest followed by a weird pause but has never had any presyncopal symptoms from this. He states this happens occasionally, but has been going on for a while. It was never severe enough for him to get checked out. He does no illicit drugs or substances. No known history of heart problems that he has ever been diagnosed with. He is a pack per day smoker. 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 Roly Merida MD) Grandfather Myocardial infarction, Onset Age: 41 Uncle Myocardial infarction, Onset Age: 64 Aunt CVA (cerebral vascular accident) Depression Father Alcoholism Hypertension Cancer Family History: Reports: No pertinent history Paternal Family History: Family History (Last Reviewed 07/14/20 @ 12:[address] Roly Merida MD) Grandfather Myocardial infarction, Onset Age: 41 Uncle Myocardial infarction, Onset Age: 64 Aunt CVA (cerebral vascular accident) Depression Father Alcoholism Hypertension Cancer Family History: Reports: No pertinent history Review of Systems General: Denies: Chills, Fever, Sweats Eyes: Denies: Visual changes - bilaterally, Diplopia ENT: Denies: Rhinorrhea, Sore throat Cardiovascular: Reports: Chest pain, Palpitations, Heart racing Respiratory: Denies: Dyspnea, Cough, Dyspnea on exertion Gastrointestinal: Denies: Abdominal pain, Nausea, Vomiting, Diarrhea, Melena, Hematochezia Genitourinary: Denies: Dysuria, Hematuria, Frequency Musculoskeletal: Reports: Neck pain - Chronic unchanged. Denies: Back pain, Swelling, Extremity Pain Skin: Denies: Rash, Wounds Neurological: Denies: Headache, Weakness, Numbness Physical Exam Vital Signs/Narrative: Vital Signs Temp Pulse Resp BP Pulse Ox 10/23/20 00:40 98.1 F 135 H 16 161/103 H 96 Inital Vital Signs reviewed: Yes General: Well nourished, Well developed, No Acute Distress - Keenly alert and conversive in full sentences Head: Normocephalic, Atraumatic Eyes: Perrl, EOMI ENT: Moist mucous membranes, No rhinorrhea Neck: Supple, Nontender, No lymphadenopathy, No JVD Cardiovascular: Regular rate, Regular rhythm, No murmurs, Tachycardia Respiratory: No distress, CTA bilaterally, Chest nontender Abdomen: Soft, Nontender, Nondistended, Normal bowel sounds Back: Nontender, Normal Inspection Extremities: Nontender, No edema. Negative for: Calf Tenderness Skin: Normal color, No rash, No Trauma Neurological: Alert, Oriented x3, Cranial nerves II-XII grossly intact, Normal Strength, Normal Sensation, Normal Gait Psychological: Normal affect, Normal Mood Diagnostic/Tx/Re-eval Impressions Chest X-Ray 10/23/20 01:12 IMPRESSION: Normal x-ray examination of the chest for age. Electronically Signed: Debra Lange MD at 1:33 EST , Service support , 10/23/20 01:12 Chest 1 View (Portable) [RAD] Stat Laboratory Results 10/23/20 10/23/20 00:45 00:45 WBC 12.3 H RBC 4.64 Hgb 15.6 Hct 46.1 MCV 99.4 H MCH 33.6 H MCHC 33.8 RDW Std Deviation 43.8 RDW Coeff of Neil 11.9 Plt Count 237 MPV 10.7 Immature Gran % (Auto) 0.200 Neut % (Auto) 58.4 Lymph % (Auto) 29.9 Merrick % (Auto) 9.2 Eos % (Auto) 1.7 Baso % (Auto) 0.6 Absolute Neuts (auto) 7.2 Absolute Lymphs (auto) 3.67 Nucleated RBC % 0 Sodium 140 Potassium 3.4 L Chloride 107 Carbon Dioxide 25.0 Anion Gap 8 BUN 19 H Creatinine 0.90 Estim Creat Clear Calc 91.65 Est GFR (MDRD) Af Amer 112 Est GFR (MDRD) Non-Af 93 BUN/Creatinine Ratio 21.2 H Glucose 161 H Calcium 9.1 Troponin I < 0.015 - Rhythm Strip Rhythm Strip: Supraventricular tachycardia Rate: 130 Ectopy: PVC(s) - Occasional - EKG Initial EKG Interpretation: - - Narrow complex supraventricular tachycardia with inverted P waves inferiorly, left axis deviation Prior: Changed - But same morphology as old EKG with sinus rhythm at 74 - Medical Decision Making Patient was given adenosine 6 mg, which caused a brief pause and revealed clear atrial flutter waves. After the medication wore off, he continued to be tachycardic in the high 130s. His last meal was 2-3 hours ago, so he was given Cardizem 20 mg as opposed to sedating him for cardioversion. This decrease his rate some but he still maintained mostly in the 120s, just with occasionally variable conduction instead of 2:1. Patient had no recurrence in chest discomfort and his blood pressure remained stable. Discussed w/ cardiology Dr. Álvarez, who recommends admission to ICU with heparin gtt, cardizem gtt, replacing K+, and keeping NPO for probable cardioversion tomorrow. Will add magnesium level and TSH to his labs. - Critical Care Time Critical care time (excluding procedures): 30-74 minutes - 40 minutes including time spent discussing with patient and consultants, arranging admission, performing direct patient care and reevaluation at the bedside, and documentation. Time exclusive of procedures. ED Disposition - Plan for ED Patient: Disposition: Acute Care [facility] [place] Diagnosis: Chest pain, Atrial flutter with rapid ventricular response Referrals: Francisco Jacobson MD [Primary Care Provider] -
[2020-10-23 01:23] LABS: Absolute Lymphocyte Count 3.67 X10^3/uL (0.83-4.51); Absolute Neutrophil Count 7.2 X10^3/uL (2.0-7.7); Basophil# 0.07 X10^3/uL; Basophil% 0.6 % (0-1); Eosinophil# 0.21 X10^3/uL; Eosinophils% 1.7 % (0-5); Hematocrit 46.1 % (40-54); Hemoglobin 15.6 g/dL (13.0-16.5); Lymphocyte # 3.67 X10^3/ul (4.0); Lymphocyte % 29.9 % (19-41); Mean Corp Hgb Conc 33.8 g/dL (32-36); Mean Corpuscular Hgb 33.6 pg (27.0-32.0); Mean Corpuscular Volume 99.4 fL (80-94); Mean Platelet Vol. 10.7 fl (6.2-12.0); Monocyte# 1.13 X10^3/uL; Monocyte% 9.2 % (0-10); NRBC Flagged by Analyzer 0 % (0-5); Neutrophil # 7.15 X10^3/uL (2.7-7.7); Neutrophil % 58.4 % (47-70); Platelet Count 237 K/mm3 (150-450); RBC Distribution Width CV 11.9 % (11.6-14.6); RBC Distribution Width SD 43.8 fl (35.1-43.9); Red Blood Count 4.64 M/mm3 (4.6-6.2); White Blood Count 12.3 K/mm3 (4.4-11.0)
[2020-10-23] MEDS: Adenosine 6 MG/2 ML Syringe IV (01:31)
[2020-10-23] MEDS: 0.9% Normal Saline 1,000 ML 250 ML IV (01:31)
[2020-10-23] MEDS: dilTIAZem 25 MG/5 ML Vial 20 MG IV BOLUS (01:38)
[2020-10-23 01:42] LABS: Anion Gap 8 (5-15); BUN 19 mg/dL (7-18); BUN/Creat Ratio 21.2 RATIO (10-20); Calcium,Total 9.1 mg/dL (8.5-10.1); Chloride 107 mmol/L (98-107); EST Glomerular Filtration Rate 93 mL/min (>60); Est Glom Filt Rate - Afr Amer 112 mL/min (>60); Estimated Creatinine Clearance 91.65 ml/min; Glucose 161 mg/dL (74-106); Potassium 3.4 mmol/L (3.5-5.1); Sodium Level 140 mmol/L (136-145)
--- NOTE | 2020-10-23 02:47 | HP.PCM_ITS ---
Problem List (1) Chest pain Status: Acute Qualifiers: Chest pain type: unspecified Qualified Code(s): R07.9 - Chest pain, unspecified (2) Atrial flutter with rapid ventricular response Status: Acute (3) Anxiety and depression Status: Chronic (4) History of alcohol abuse Status: Chronic (5) Obesity (BMI 30.0-34.9) Status: Chronic (6) HLD (hyperlipidemia) Status: Chronic Qualifiers: Hyperlipidemia type: unspecified Qualified Code(s): E78.5 - Hyperlipidemia, unspecified (7) BPH (benign prostatic hyperplasia) Status: Chronic Qualifiers: Lower urinary tract symptom presence: unspecified whether lower urinary tract symptoms present Qualified Code(s): N40.0 - Benign prostatic hyperplasia without lower urinary tract symptoms (8) HTN (hypertension) Status: Chronic Qualifiers: Hypertension type: essential hypertension Qualified Code(s): I10 - Essential (primary) hypertension (9) Smoker Status: Chronic Comment: F17.200 History of Present Illness Date of Admission: 10/23/20 Chief Complaint: Palpitations The patient is a 55 y/o M w/ PMHx: HTN, HLD, Anxiety and Depression, Obesity, Chronic headaches, EtOH abuse (6-8 beers daily), Psoriasis, GERD, Tobacco use who presents to the [facility] ED on 10/23/20 with history of onset palpitations with racing sensation which was continuous while laying down in bed with concurrent associated upper sternal region dull chest aching noted to be transient and since has subsided, rated at its worst 2/10 in severity (currently since conversion resolved). He noted specific onset of sensation at 11-11:30 pm the evening prior to presentation. He does note that he occasionally has felt a similar sensation described as a fluttering of his chest followed by the sensation of a pause but he is never had any other associated symptoms. Patient notes resolution of his sensation of palpitations following drip start. Work-up in the ED included T 98.1, heart rate 136, BP 161/103, respiratory rate 18, 96% on room air, CBC with WC 12.3, hemoglobin 15.6, platelet 237 without marked shift, BMP with potassium 3.6, BUN/creatinine 19/0.90, glucose 161, troponin less than 0.015, chest x-ray with no acute cardiopulmonary findings, EKG with SVT with follow-up sinus rhythm. In the ED patient was administered adenosine 6 mg with brief pause which revealed atrial flutter waves with administration of Cardizem 20 mg. ED consulted Cardiology who recommended cardizem drip initiation and heparin drip initiation. In the ED patient administered Cardizem, Adenosine, Potassium, Heparin drip, Cardizem drip. Past Medical History Past Medical History (Chronic Problems): Chronic Problems (Last Reviewed 07/14/20 @ 12:[address] Roly Merida MD) Neoplasm of skin of upper arm (Chronic) 6 mm erythematous lesion left proximal anterior arm 7 mm erythematous lesion right proximal anterior arm Neoplasm of unspecified behavior of bone, soft tissue, and skin (Chronic) 6 mm tannish lesion left chest wall 1.2 cm tannish lesion left lateral neck by clavicle Anxiety and depression (Chronic) History of dysplastic nevus (Chronic) Neoplasm of skin of nose (Chronic) 3 mm erythematous lesion proximal nasal dorsum near previous scar Neoplasm of skin of thigh (Chronic) 3 mm lesion left anterior thigh, clinically looks like a benign keratosis Personal history of Methicillin resistant Staphylococcus aureus infection (Chronic) Personal history of skin cancer (Chronic) Cervical nerve root impingement (Chronic) Foraminal stenosis of cervical region (Chronic) Herniation of intervertebral disc at C5-C6 level (Chronic) Neck pain (Chronic) Cephalgia (Chronic) Chiari I malformation (Chronic) History of alcohol abuse (Chronic) Obesity (BMI 30.0-34.9) (Chronic) GERD (gastroesophageal reflux disease) (Chronic) HLD (hyperlipidemia) (Chronic) BPH (benign prostatic hyperplasia) (Chronic) HTN (hypertension) (Chronic) Actinic keratosis (Chronic) Scattered actinic damage right lateral forehead by eyebrow 5 mm actinic keratosis left supramedial cheek Smoker (Chronic) F17.200 Family history of skin cancer (Chronic) Z80.8 Neoplasm of skin of left cheek (Chronic) D49.2 5 mm lesion left supramedial cheek Basal cell carcinoma of nasal sidewall (Chronic) C44.311 7 mm basal cell carcinoma right lateral nasal sidewall/nasal dorsum Medical History: Medical History (Last Reviewed 07/14/20 @ 12:[address] Roly Merida MD) Neoplasm of skin of upper arm (Chronic) D49.2 6 mm erythematous lesion left proximal anterior arm 7 mm erythematous lesion right proximal anterior arm Neoplasm of unspecified behavior of bone, soft tissue, and skin (Chronic) D49.2 6 mm tannish lesion left chest wall 1.2 cm tannish lesion left lateral neck by clavicle Cat scratch of right lower leg (Resolved) S80.811A, W55.03XA Neoplasm of skin of nose (Chronic) D49.2 3 mm erythematous lesion proximal nasal dorsum near previous scar Personal history of Methicillin resistant Staphylococcus aureus infection (Chronic) Z86.14 Dysplastic nevus of trunk (Acute) D23.5 1 cm dysplastic nevus with moderate atypia left chest wall Basal cell carcinoma (BCC) of dorsum of nose (Acute) C44.311 8 mm basal cell carcinoma, superficial and micronodular type, distal aspect left nasal dorsum near the tip Actinic keratosis (Chronic) L57.0 Scattered actinic damage right lateral forehead by eyebrow 5 mm actinic keratosis left supramedial cheek Basal cell carcinoma of nasal sidewall (Chronic) C44.311 C44.311 7 mm basal cell carcinoma right lateral nasal sidewall/nasal dorsum Actinic keratosis of left cheek L57.0 Alcohol abuse F10.10 Back problem M53.9 Basal cell carcinoma C44.91 RIGHT LATERAL NASAL SIDEWALL/NASAL DORSUM Bladder infection N30.90 Breast lump N63.0 Carpal tunnel syndrome G56.00 Cervical spinal stenosis M48.02 Chronic headaches R51 Family history of prostate problems Z84.2 PROBLEMS URINATING High cholesterol E78.00 History of emotional problems F48.9 DEPRESSION AND ANXIETY Hives L50.9 Kidney stones N20.0 MRSA (methicillin resistant Staphylococcus aureus) A49.02 Neuropathy G62.9 Pneumonia J18.9 Psoriasis L40.9 Vision problems H54.7 High blood pressure I10 Hypertension I10 Allergies Penicillins Allergy (Verified 10/23/20 01:23) Unknown adhesive tape Adverse Reaction (Verified 10/23/20 01:23) BLISTERS Home Medications: Ambulatory Orders Medication Instructions Recorded atorvastatin 20 mg tablet 20 mg PO DAILY #90 tab 11/10/19 lisinopril 10 mg tablet See Rx Instructions .ROUTE 11/10/19 .COMPLEX #90 tab famotidine 20 mg tablet 20 mg PO DAILY #90 tab 06/01/20 meloxicam 7.5 mg tablet See Rx Instructions .ROUTE 09/29/20 .COMPLEX PRN #90 tab acyclovir 400 mg tablet 400 mg PO DAILY #30 tab 10/11/20 Surgical History: Surgical History (Last Reviewed 07/14/20 @ 12:[address] Roly Merida MD) H/O arthroscopic knee surgery Z98.890 chest lump removed excision of basal cell carcinoma right lateral nasal sidewal EXCISION 7 MM BASAL CELL CARCINOMA RIGHT LATERAL NASAL SIDEWALL/NASAL DORSUM WITH FTSG RECONSTRUCTION FROM THE RIGHT NECK (1.5 CM2) AND INTRADERMAL EXCISION 5 MM ACTINIC KERATOSIS LEFT SUPRAMEDIAL CHEEK 05/24/2016 lesion removed off of penis removal of ingrown toenail History of basal cell carcinoma excision Z98.890, Z85.828 edure Performed:: 1. Excision 8 mm basal cell carcinoma, left distal nasal dorsum near the tip with bilobed transposition skin flap reconstruction (9 cm2). 2. Excision 1 cm dysplastic nevus with moderate atypia left chest wall with 4 cm layered closure - 11/22/17 Surgical History: - - Chest lump removal, excision basal cell carcinoma, arthroscopic knee surgery, penile surgery. Psychiatric History: No pertinent psych hx Lives: Alone Smoking Status: Current every day smoker - 1 ppd cigarette tobacco use. Tobacco Use: Cigarettes Alcohol: Heavy - 6-8 beers daily. Drugs: None - *Family History Maternal Family History: Family History (Last Reviewed 07/14/20 @ 12:[address] Roly Merida MD) Grandfather Myocardial infarction, Onset Age: 41 Uncle Myocardial infarction, Onset Age: 64 Aunt CVA (cerebral vascular accident) Depression Father Alcoholism Hypertension Cancer History Items: Stroke Paternal Family History: Family History (Last Reviewed 07/14/20 @ 12:[address] Roly Merida MD) Grandfather Myocardial infarction, Onset Age: 41 Uncle Myocardial infarction, Onset Age: 64 Aunt CVA (cerebral vascular accident) Depression Father Alcoholism Hypertension Cancer History Items: Cancer, Hypertension, - - Father with history of EtOH abuse. Review of Systems Constitutional: Denies: Chills, Fever, Weight Change HEENT: Denies: Head Aches, Sinus Congestion, Sinus Drainage Cardiovascular: Reports: Chest Pain, Palpitations Respiratory: Denies: Cough, Shortness of breath at rest, Sputum production Gastrointestinal: Denies: Abdominal Pain, Nausea, Vomiting Genitourinary: Denies: Dysuria Musculoskeletal: Reports: Back Pain, Joint Pain. Denies: Joint Tenderness Skin: Denies: Rash, Wounds Neurological: Denies: Numbness, Tingling, Focal weakness Psychiatric: Reports: Anxiety, Depression. Denies: Homicidal Ideations, Suicidal Ideations Hematologic/ Lymphatic: Reports: Easy Bruising, Easy Bleeding VTE Information - Inpt Only VTE Present on Admission: No VTE Mechan Device Prophylaxis: SCD's VTE Pharm Prophylaxis ordered?: Yes Patient Problems: Active and Suspected Problems (Last Reviewed 07/14/20 @ 12:[address] Roly Merida MD) Chest pain (Acute) Atrial flutter with rapid ventricular response (Acute) Subjective: Patient seated upright in the ED bed, notes feeling improved, notes chest discomfort has resolved and palpitations lessened. Objective: Physical Examination: General: awake, alert, oriented x 3 and cooperative, seated upright in the ED bed in no apparent distress. Skin: normal color, turgor, no icterus, cyanosis. HEENT: AT/NC, EOMI, PERRLA, mildly dry MM, no carotid bruits or JVD noted. Lungs: Diminished breath sounds, greater bases, moderate effort, occasional end expiratory wheeze, no rhonchi's or rales. Heart: Improved, appears regular rate and rhythm, EKG pending, currently on Cardizem drip; no gallop, rub audible. Abdomen: soft, NTTP, ND, normal BS, no HSM. Extremities: no cyanosis, clubbing, or edema. Neurological: patient awake, alert, oriented as noted; cognitive function intac t; pupils equally reactive to light and accomodation; cranial nerves II-XII grossly normal, moving all 4 extremities, no focal deficits, strength mildly global decrease secondary to acute presentation. Psychiatric: affect appears fatigued otherwise normal, no acute evidence of depressive or anxiety feelings. - Physical Exam Vitals/I&O's: Vital Signs Temp Pulse Resp BP Pulse Ox 98.1 F 112 H 16 127/91 H 99 10/23/20 00:40 10/23/20 02:00 10/23/20 02:00 10/23/20 02:00 10/23/20 02:00 Oxygen Flow Rate (L/min) 2 Oxygen Delivery Method Nasal Cannula Weight: 218 lb 0.595 oz Body Mass Index (BMI) 32.1 Laboratory Results 10/23/20 00:45: WBC 12.3 H, RBC 4.64, Hgb 15.6, Hct 46.1, MCV 99.4 H, MCH 33.6 H , MCHC 33.8, RDW Std Deviation 43.8, RDW Coeff of Neil 11.9, Plt Count 237, MPV 10.7, Immature Gran % (Auto) 0.200, Neut % (Auto) 58.4, Lymph % (Auto) 29.9, [place] % (Auto) 9.2, Eos % (Auto) 1.7, Baso % (Auto) 0.6, Absolute Neuts (auto) 7.2, Absolute Lymphs (auto) 3.67, Nucleated RBC % 0 10/23/20 00:45: Sodium 140, Potassium 3.4 L, Chloride 107, Carbon Dioxide 25.0, Anion Gap 8, BUN 19 H, Creatinine 0.90, Estim Creat Clear Calc 91.65, Est GFR (MDRD) Af Amer 112, Est GFR (MDRD) Non-Af 93, BUN/Creatinine Ratio 21.2 H, Glucose 161 H, Calcium 9.1, Troponin I < 0.015 10/23/20 00:45: Magnesium Pending, TSH Pending 10/23/20 00:45: APTT Pending Current Medications Heparin Sodium (Porcine) (Heparin Injection (Vial) 5,000 Unit/Ml Vial) 0 unit IV UD PRN; Protocol PRN Reason: dose adjustment Sodium Chloride () 1,000 mls @ 250 mls/hr IV .Q4H BEATRIS Last Admin: 10/23/20 01:31 Dose: 250 mls/hr Documented by: Diltiazem HCl 125 mg/ Dextrose 125 mls @ 5 mls/hr IV .Q25H BEATRIS; Protocol Heparin Sodium/Dextrose () 25,000 units in 250 mls @ 14 mls/hr IV .[id number] BEATRIS; Protocol Potassium Chloride () 10 meq in 100 mls @ 100 mls/hr IV BOLUS X1 ONE Stop: 10/23/20 03:35 Assessment/Plan All Active Problems (Last Reviewed 07/14/20 @ 12:[address] Roly Merida MD) Chest pain (Acute) Atrial flutter with rapid ventricular response (Acute) Trauma (Acute) Cat scratch of right lower leg (Resolved) Brain lesion (Acute) Dysplastic nevus of trunk (Acute) Basal cell carcinoma (BCC) of dorsum of nose (Acute) Cellulitis due to methicillin-resistant Staphylococcus aureus (MRSA) (Resolved) Neoplasm of skin of upper arm (Resolved) The patient is a 55 y/o M w/ PMHx: HTN, HLD, Anxiety and Depression, Obesity, Chronic headaches, EtOH abuse (6-8 beers daily), Psoriasis, GERD, Tobacco use who presents to the [facility] ED on 10/23/20 with history of onset palpitations with racing sensation which was continuous while laying down in bed with concurrent associated upper sternal region dull chest aching noted to be transient and since has subsided. 1. New onset, Paroxsymal atrial fibrillation/flutter: EKG in ED w/ atrial flutter w/ RVR noted following administration of adenosine in the emergency room. Patient administered Cardizem in ED. Will admit to PCU, maintain on telemetry, obtain cardiac enzyme serial set, obtain magnesium level, obtain ECHO, obtain TSH level, continue heparin drip, continue cardizem drip. Magnesium level requested as well as phosphorus given alcohol abuse history. Will continue Cardiology consultation. UDS pending. 2. Hypokalemia: Admission K+ 3.4, magnesium level requested, supplementation given, repeat level in AM. 3. Hyperglycemia: Admission glucose 161, will obtain hemoglobin A1c. 4. EtOH Abuse: Patient notes routine consumption of 6-8 beers per day. Will maintain on CIWA protocol, MVI, thiamine and folic acid. Magnesium and phosphorus levels requested. Case management consultation for substance abuse. 5. Hypertension: Hold lisinopril, currently maintain on IV Cardizem as noted, PRN hydralazine. 6. Hyperlipidemia: Continue home statin regimen. 7. Tobacco Abuse: Encouraged cessation, inpatient consultation per RT, NR if desired. 8. GERD: We will maintain on home famotidine regimen. 9. Anxiety and depression: Not on regimen, encourage continued outpatient follow-up. 10. Obesity: Weight loss and lifestyle changes encouraged. 11. DVT prophylaxis: SCDs, continue heparin drip as noted. Inpatient E&M: 55539 Init Hosp L3
[2020-10-23 02:50] LABS: Partial Thromboplast Time 29.9 Seconds (24.1-36.2)
[2020-10-23 03:02] LABS: Thyroid Stim Hormone (TSH) 1.64 uIU/mL (0.358-3.74)
[2020-10-23] MEDS: Potassium Chloride 10mEq/100mL 10 MEQ/100 ML IV.SOLN. 100 MEQ IV BOLUS (03:06)
[2020-10-23] MEDS: Heparin Injection (Vial) 5,000 UNIT/ML VIAL 7500 UNIT IV (03:06)
[2020-10-23] MEDS: HEPARIN/D5w 25,000 UNITS 25,000 UNITS/250 ML IV.SOLN. 14 UNITS IV (03:07)
[2020-10-23 03:58] LABS: Phosphorus 3.3 mg/dL (2.5-4.9)
[2020-10-23] MEDS: 0.9% Normal Saline 1,000 ML 100 ML IV (03:59)
[2020-10-23 04:41] LABS: Amphetamine Urine VISTA NEGATIVE (<1000 ng/mL); Barbiturate Urine VISTA NEGATIVE (< 200 ng/mL); Benzodiazepine Urine VISTA NEGATIVE (< 200 ng/mL); Cocaine Urine VISTA NEGATIVE (< 300 ng/mL); Ecstacy Urine VISTA NEGATIVE (< 500 ng/mL); Methadone Urine VISTA NEGATIVE (< 300 ng/mL); PCP Urine VISTA NEGATIVE (< 25 ng/mL); THC Urine VISTA POSITIVE (< 50 ng/mL); Vista UDS pH Range 6
--- NOTE | 2020-10-23 04:55 | EKG12_ITS ---
Test Reason : CP Blood Pressure : / mmHG Vent. Rate : 075 BPM Atrial Rate : 075 BPM P-R Int : 182 ms QRS Dur : 094 ms QT Int : 378 ms P-R-T Axes : 037 061 020 degrees QTc Int : 422 ms Normal sinus rhythm Normal ECG When compared with ECG of 20-MAY-2011 16:02, Questionable change in QRS axis Confirmed by HIRO LAM, ARSENIO ([id number]), editorial director BULMARO BARNES ([id number]) on 10/25/2020 1:07:03 PM Referred By: ALIS Confirmed By:ARSENIO BOSCH MD
[2020-10-23 07:10] LABS: Absolute Lymphocyte Count 2.61 X10^3/uL (0.83-4.51); Absolute Neutrophil Count 5.5 X10^3/uL (2.0-7.7); Basophil# 0.06 X10^3/uL; Basophil% 0.6 % (0-1); Eosinophil# 0.17 X10^3/uL; Eosinophils% 1.8 % (0-5); Hematocrit 42.4 % (40-54); Hemoglobin 14.2 g/dL (13.0-16.5); Lymphocyte # 2.61 X10^3/ul (4.0); Lymphocyte % 28.2 % (19-41); Mean Corp Hgb Conc 33.5 g/dL (32-36); Mean Corpuscular Hgb 33.8 pg (27.0-32.0); Mean Platelet Vol. 10.4 fl (6.2-12.0); Monocyte# 0.94 X10^3/uL; Monocyte% 10.2 % (0-10); NRBC Flagged by Analyzer 0 % (0-5); Neutrophil # 5.45 X10^3/uL (2.7-7.7); Platelet Count 213 K/mm3 (150-450); RBC Distribution Width CV 12.1 % (11.6-14.6); RBC Distribution Width SD 45.1 fl (35.1-43.9); White Blood Count 9.3 K/mm3 (4.4-11.0)
[2020-10-23 08:07] LABS: AST(SGOT) 20 U/L (15-37); Alanine Aminotransfer ALT/SGPT 50 U/L (16-61); Albumin, Serum 3.4 g/dL (3.2-5.0); Alkaline Phosphatase 79 U/L (45-117); Anion Gap 8 (5-15); BUN 18 mg/dL (7-18); BUN/Creat Ratio 24.7 RATIO (10-20); Calcium,Total 8.6 mg/dL (8.5-10.1); Chloride 109 mmol/L (98-107); Cholesterol 147 mg/dL (200); Creatinine, Serum 0.73 mg/dL (0.70-1.30); EST Glomerular Filtration Rate 118 mL/min (>60); Est Glom Filt Rate - Afr Amer 143 mL/min (>60); Estimated Creatinine Clearance 112.99 ml/min; Globulin 3.4 g/dL (2.2-4.2); Glucose 97 mg/dL (74-106); High Density Lipoprotein 47 mg/dL; Potassium 3.8 mmol/L (3.5-5.1); Protein, Total 6.8 g/dL (6.4-8.2); Sodium Level 140 mmol/L (136-145); Triglycerides 88 mg/dL; Very Low Density Lipoprotein 18 mg/dL (5-40)
--- NOTE | 2020-10-23 08:35 | PCM.DC ---
- Discharge Diagnoses Current Active Problems: Current Active and Chronic Problems Chest pain (Acute) Atrial flutter with rapid ventricular response (Acute) Anxiety and depression (Chronic) Cervical nerve root impingement (Chronic) Foraminal stenosis of cervical region (Chronic) Chiari I malformation (Chronic) History of alcohol abuse (Chronic) Obesity (BMI 30.0-34.9) (Chronic) GERD (gastroesophageal reflux disease) (Chronic) HLD (hyperlipidemia) (Chronic) BPH (benign prostatic hyperplasia) (Chronic) HTN (hypertension) (Chronic) Smoker (Chronic) F17.200 You will use the following diet at home:: No restrictions Your food should be the consistency of: Regular Your liquids should be the consistency of: Regular/Thin Discharge Activity: Return to Normal Activity Weight Bearing Status: Full weight bearing Additional Instructions: Do not take Ibuprofen, Aleve, or meloxicam while you are currently on Eliquis, take Tylenol for pain Allergies/Adverse Reactions: Allergies Penicillins Allergy (Verified 10/23/20 01:23) Unknown adhesive tape Adverse Reaction (Verified 10/23/20 01:23) BLISTERS Medications to take at Discharge Acyclovir 400 mg PO DAILY 10/23/20 Apixaban [Eliquis] 5 mg PO BID #60 tab 10/23/20 Atorvastatin Calcium [Lipitor] 20 mg PO DAILY 10/23/20 Atorvastatin Calcium [Lipitor] 20 mg PO QHS tab 10/23/20 Diltiazem CD [Cardizem CD] 180 mg PO DAILY #30 cap 10/23/20 Famotidine 20 mg PO DAILY 10/23/20 Famotidine [Pepcid] 20 mg PO DAILY tab 10/23/20 Lisinopril [Prinivil] See Rx Instructions .ROUTE .COMPLEX 10/23/20 The following prescriptions were given: Diltiazem CD [Cardizem CD] 180 mg PO DAILY #30 cap Transmission Status: Received by [facility]30 Apixaban [Eliquis] 5 mg PO BID #60 tab Transmission Status: Received by [facility] Primary Care Physician: Francisco Jacobson MD [Primary Care Provider] - Test Results: Test results from this visit will be discussed in further detail at your follow-up appointment, if applicable. Please Follow Up With: Miguel Angel Álvarez MD When: in 3 weeks
[2020-10-23] MEDS: dilTIAZem CD 180 MG Capsule PO (08:43)
[2020-10-23] MEDS: Folic Acid 1 MG Tablet PO (08:43)
[2020-10-23] MEDS: Multivitamins,Ther W-Minerals Tablet 1 TABLET PO (08:44)
[2020-10-23] MEDS: Famotidine 20 MG Tablet PO (08:45)
[2020-10-23] MEDS: Thiamine Hydrochloride 100 MG Tablet PO (08:45)
[2020-10-23] MEDS: Acetaminophen 325 MG Tablet 650 MG PO (08:47)
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
[2020-10-23] MEDS: APIXABAN 5 MG TABLET PO (10:13)
--- NOTE | 2020-10-23 10:49 | DS.PCM_ITS ---
Discharge Date and Diagnosis - Problem List Patient Problems: Active and Suspected Problems (Last Reviewed 07/14/20 @ 12:[address] Roly Merida MD) Chest pain (Acute) Atrial flutter with rapid ventricular response (Acute) Date of Admission: 10/23/20 Date of Discharge: 10/23/20 - Primary Discharge Diagnosis Acute Problems: Active Problems (Last Reviewed 07/14/20 @ 12:[address] Roly Merida MD) #1 atrial flutter with rapid ventricular response converted to sinus rhythm #2 essential hypertension #3 GERD #4 hyperlipidemia - Secondary Discharge Diagnosis Chronic Problems: Chronic Problems (Last Reviewed 07/14/20 @ 12:[address] Roly Merida MD) Neoplasm of skin of upper arm (Chronic) 6 mm erythematous lesion left proximal anterior arm 7 mm erythematous lesion right proximal anterior arm Neoplasm of unspecified behavior of bone, soft tissue, and skin (Chronic) 6 mm tannish lesion left chest wall 1.2 cm tannish lesion left lateral neck by clavicle Anxiety and depression (Chronic) History of dysplastic nevus (Chronic) Neoplasm of skin of nose (Chronic) 3 mm erythematous lesion proximal nasal dorsum near previous scar Neoplasm of skin of thigh (Chronic) 3 mm lesion left anterior thigh, clinically looks like a benign keratosis Personal history of Methicillin resistant Staphylococcus aureus infection (Chronic) Personal history of skin cancer (Chronic) Cervical nerve root impingement (Chronic) Foraminal stenosis of cervical region (Chronic) Herniation of intervertebral disc at C5-C6 level (Chronic) Neck pain (Chronic) Cephalgia (Chronic) Chiari I malformation (Chronic) History of alcohol abuse (Chronic) Obesity (BMI 30.0-34.9) (Chronic) GERD (gastroesophageal reflux disease) (Chronic) HLD (hyperlipidemia) (Chronic) BPH (benign prostatic hyperplasia) (Chronic) HTN (hypertension) (Chronic) Actinic keratosis (Chronic) Scattered actinic damage right lateral forehead by eyebrow 5 mm actinic keratosis left supramedial cheek Smoker (Chronic) F17.200 Family history of skin cancer (Chronic) Z80.8 Neoplasm of skin of left cheek (Chronic) D49.2 5 mm lesion left supramedial cheek Basal cell carcinoma of nasal sidewall (Chronic) C44.311 7 mm basal cell carcinoma right lateral nasal sidewall/nasal dorsum Hospital Course and Treatment Imaging Results: 10/23/20 03:39 Echo Complete [ECHO] Routine Operations: None Procedures: None Summary of Care Provided: The patient is a 55 year old M was seen in the emergency room at [facility] with a chief complaint of palpitations, he also complained of mild upper substernal chest pain. Work-up in the emergency room included a chest x-ray which was unremarkable, white blood cell count was elevated at 12.3, potassium was low at 3.4, glucose was 161 and his tox screen was positive for cannabinoids.. Initial EKG showed a narrow complex supraventricular tachycardia, patient was given adenosine which caused a brief pause and then revealed clear atrial flutter waves. Patient's heart rate was in the 130s. Patient was given Cardizem 20 mg IV, this worked to decrease his heart rate but his heart rate still remained in the 120s. Patient was placed on a heparin drip, Cardizem drip, and given replacement potassium and admitted to PCU. Patient converted to sinus rhythm, he was seen in consultation by cardiology who felt that the patient could be discharged home but requested the patient be given full anticoagulation. On 10/23/2020, patient was seen and examined: On examination he appeared in good health and spirits. Vital signs as documented. Skin warm and dry and without overt rashes. Neck without JVD, neck was supple, trachea midline, thyroid was normal. Lungs clear bilaterally, normal air movement was noted. Heart exam notable for regular rhythm, normal sounds and absence of murmurs, rubs or gallops. Abdomen unremarkable and without evidence of organomegaly, masses, or abdominal aortic enlargement. Bowel sounds are present, abdomen is not distended. Extremities nonedematous, no cyanosis was noted, no clubbing was noted. Neuro: Cranial nerves II through XII are grossly intact, no focal motor deficits were noted, sensation to light touch and pinprick intact, motor exam 5/5 throughout. Psych: Patient is alert and oriented x3, he does not appear anxious or depressed, he does not appear agitated. Patient was discharged home in stable condition on 10/23/2020. Patient Problems: Active and Suspected Problems (Last Reviewed 07/14/20 @ 12:[address] Roly Merida MD) Chest pain (Acute) Atrial flutter with rapid ventricular response (Acute) - Physical Exam Vitals/I&O's: Vital Signs Temp Pulse Resp BP Pulse Ox 97.7 F L 68 12 131/87 H 99 10/23/20 10:07 10/23/20 10:07 10/23/20 10:07 10/23/20 10:07 10/23/20 10:07 Oxygen Flow Rate (L/min) 2 Oxygen Delivery Method Room Air Weight: 96.6 kg Body Mass Index (BMI) 31.4 Intake and Output for Last 24 Hours 10/21/20 10/22/20 10/23/20 23:59 23:59 23:59 Intake Total 828.84 / 828.84 Balance 828.84 / 828.84 Laboratory Results 10/23/20 00:45: WBC 12.3 H, RBC 4.64, Hgb 15.6, Hct 46.1, MCV 99.4 H, MCH 33.6 H , MCHC 33.8, RDW Std Deviation 43.8, RDW Coeff of Neil 11.9, Plt Count 237, MPV 10.7, Immature Gran % (Auto) 0.200, Neut % (Auto) 58.4, Lymph % (Auto) 29.9, [place] % (Auto) 9.2, Eos % (Auto) 1.7, Baso % (Auto) 0.6, Absolute Neuts (auto) 7.2, Absolute Lymphs (auto) 3.67, Nucleated RBC % 0 10/23/20 00:45: Sodium 140, Potassium 3.4 L, Chloride 107, Carbon Dioxide 25.0, Anion Gap 8, BUN 19 H, Creatinine 0.90, Estim Creat Clear Calc 91.65, Est GFR (MDRD) Af Amer 112, Est GFR (MDRD) Non-Af 93, BUN/Creatinine Ratio 21.2 H, Glucose 161 H, Calcium 9.1, Troponin I < 0.015 10/23/20 00:45: Magnesium 2.0, TSH 1.64 10/23/20 00:45: APTT 29.9 10/23/20 00:45: Phosphorus 3.3 10/23/20 03:50: Troponin I 0.017 10/23/20 06:41: WBC 9.3, RBC 4.20 L, Hgb 14.2, Hct 42.4, MCV 101.0 H, MCH 33.8 H , MCHC 33.5, RDW Std Deviation 45.1 H, RDW Coeff of Neil 12.1, Plt Count 213, MPV 10.4, Immature Gran % (Auto) 0.200, Neut % (Auto) 59.0, Lymph % (Auto) 28.2, [place] % (Auto) 10.2 H, Eos % (Auto) 1.8, Baso % (Auto) 0.6, Absolute Neuts (auto) 5.5, Absolute Lymphs (auto) 2.61, Nucleated RBC % 0 10/23/20 06:41: Sodium 140, Potassium 3.8, Chloride 109 H, Carbon Dioxide 23.0, Anion Gap 8, BUN 18, Creatinine 0.73, Estim Creat Clear Calc 112.99, Est GFR (MDRD) Af Amer 143, Est GFR (MDRD) Non-Af 118, BUN/Creatinine Ratio 24.7 H, Glucose 97, Calcium 8.6, Total Bilirubin 0.40, AST 20, ALT 50, Alkaline Phosphatase 79, Total Protein 6.8, Albumin 3.4, Globulin 3.4, Albumin/Globulin Ratio 1.0, Triglycerides 88, Cholesterol 147, LDL Cholesterol 82, VLDL Cholesterol 18, HDL Cholesterol 47 10/23/20 06:41: Hemoglobin A1c 5.0 10/23/20 06:41: Troponin I 0.018 10/23/20 : Urine Opiates Screen NEGATIVE, Urine Methadone Screen NEGATIVE, Ur Barbiturates Screen NEGATIVE, Ur Phencyclidine Scrn NEGATIVE, Ur Amphetamines Screen NEGATIVE, U Methamphetamin-MDMA NEGATIVE, U Benzodiazepines Scrn NEGATIVE, Urine Cocaine Screen NEGATIVE, U Cannabinoids Screen POSITIVE H, Ur Drug Screen Comment Current Medications Acetaminophen (Acetaminophen 325 Mg Tablet) 650 mg PO Q6H PRN PRN PRN Reason: Pain Score 1-10/Temp > 100.7 F Last Admin: 10/23/20 08:47 Dose: 650 mg Documented by: Al Hydroxide/Mg Hydroxide (Mag Hydrox/Al Hydrox/Simeth 30 Ml Udc) 30 ml PO Q6H PRN PRN PRN Reason: Gastric Burning Albuterol Sulfate (Albuterol 2.5 Mg/3 Ml Vial.Neb.) 2.5 mg INHALATION Q2H PRN PRN PRN Reason: Dyspnea, wheezing Apixaban (Apixaban 5 Mg Tablet) 5 mg PO BID [facility] Last Admin: 10/23/20 10:13 Dose: 5 mg Documented by: Atorvastatin Calcium (Atorvastatin Calcium 20 Mg Tablet) 20 mg PO QHS [facility] Famotidine (Famotidine 20 Mg Tablet) 20 mg PO DAILY [facility] Last Admin: 10/23/20 08:45 Dose: 20 mg Documented by: Folic Acid (Folic Acid 1 Mg Tablet) 1 mg PO DAILY@0800 [facility] Stop: 10/25/20 08:01 Last Admin: 10/23/20 08:43 Dose: 1 mg Documented by: Guaifenesin (Guaifenesin 10 Ml Udc (200mg/10ml)) 20 ml PO Q4H PRN PRN PRN Reason: COUGH Sodium Chloride () 250 mls @ 15 mls/hr IV .[id number] PRN PRN Reason: Saline Flush Sodium Chloride () 250 mls @ 15 mls/hr IV .[id number] PRN PRN Reason: Additional IVPB Infusion Lorazepam (Lorazepam 1 Mg Tablet) 2 mg PO Q2H PRN PRN; Protocol PRN Reason: CIWA score > 8 but <15 Lorazepam (Lorazepam 1 Mg Tablet) 2 mg PO UD PRN; Protocol PRN Reason: CIWA score >/=15. Lorazepam (Lorazepam 2 Mg/Ml Syringe) 2 mg IV Q2H PRN PRN; Protocol PRN Reason: CIWA score > 8 but <15 Lorazepam (Lorazepam 2 Mg/Ml Syringe) 2 mg IV UD PRN; Protocol PRN Reason: CIWA score >/=15. Magnesium Hydroxide (Magnesium Hydroxide 30 Ml Udc) 30 ml PO DAILY PRN PRN PRN Reason: Constipation Melatonin (Melatonin 3 Mg Tablet) 3 mg PO QHS PRN PRN PRN Reason: INSOMNIA Morphine Sulfate (Morphine 2 Mg/Ml Syringe) 2 mg IV Q3H PRN PRN PRN Reason: Pain Score 6-10 Multivitamins/Minerals (Multivitamins,Ther [facility]-Minerals [facility]) [facility] Last Admin: 10/23/20 08:44 Dose: 1 tablet Documented by: Nicotine (Nicotine 21 Mg Patch) 21 mg TD DAILY [facility] Last Admin: 10/23/20 08:45 Dose: Not Given Documented by: Nitroglycerin (Nitroglycerin (Inpatient Use) 0.4 Mg Tab.Subl) 0.4 mg SUBLINGUAL Q5M PRN PRN Reason: CARDIAC/CHEST PAIN Ondansetron HCl (Ondansetron 4 Mg/2 Ml Vial) 4 mg IV Q8H PRN PRN PRN Reason: NAUSEA/VOMITING Oxycodone HCl (Oxycodone 5 Mg Tablet) 5 mg PO Q4H PRN PRN PRN Reason: Pain Score 4-5 Prochlorperazine Edisylate (Prochlorperazine 10 Mg/2 Ml Vial) 5 mg IV Q4H PRN PRN PRN Reason: Breakthrough Nausea/Vomiting Psyllium Hydrophilic Mucilloid (Psyllium 1 Packet) 1 packet PO DAILY PRN PRN PRN Reason: Constipation Senna/Docusate Sodium (Senna/Docusate Sodium 1 Tablet) 2 tablet PO BID PRN PRN PRN Reason: Constipation Sodium Chloride (0.9% Saline Lock 10 Ml Syringe) 10 - 40 ml IV UD PRN PRN Reason: SALINE FLUSH Thiamine HCl ([facility] Hydrochlor[facility] 100 Mg Tablet) [facility] Stop: 10/25/20 17:01 Last Admin: 10/23/20 08:45 Dose: 100 mg Documented by: Throat Lozenges (Benzocaine/Menthol 1 Lozenge) 1 lozenge MUCOUS MEM Q2H PRN PRN PRN Reason: SORE THROAT Discharge Activity: Return to Normal Activity Weight Bearing Status: Full weight bearing Home Medications: Medications to take at Discharge Acyclovir 400 mg PO DAILY 10/23/20 Apixaban [Eliquis] 5 mg PO BID #60 tab 10/23/20 Atorvastatin Calcium [Lipitor] 20 mg PO DAILY 10/23/20 Atorvastatin Calcium [Lipitor] 20 mg PO QHS tab 10/23/20 Diltiazem CD [Cardizem CD] 180 mg PO DAILY #30 cap 10/23/20 Famotidine 20 mg PO DAILY 10/23/20 Famotidine [Pepcid] 20 mg PO DAILY tab 10/23/20 Lisinopril [Prinivil] See Rx Instructions .ROUTE .COMPLEX 10/23/20 Following Prescriptions Were Given to Patient: Diltiazem CD [Cardizem CD] 180 mg PO DAILY #30 cap Transmission Status: Received by [facility] Apixaban [Eliquis] 5 mg PO BID #60 tab Transmission Status: Received by [facility] Primary Care Physician: Francisco Jacobson MD [Primary Care Provider] - Please Follow Up With: Miguel Angel Álvarez MD When: in 3 weeks Disposition: Home Minutes spent on discharge:: 31 Patient Condition:: Stable Medical Necessity - Tobacco Use Smoking Status: Current every day smoker Tobacco Use: Cigarettes Meaningful Use Info Meaningful Use Diagnoses (Choose all that apply): None applicable OBSV E&M: 67893 Observ/hosp same date L3
== END 2020-10-23 13:47 | disposition home or self-care (01) | DRG 308 ==
LOC: ED 02:40 → PCU 07:01
PROVIDERS: Admitting Provider Family Medicine; Emergency Provider Emergency Medicine; PCP Internal Medicine; Visit Provider Internal Medicine
DX: I48.92 Unspecified atrial flutter (principal); K21.9 Gastro-esophageal reflux disease without esophagitis; E78.5 Hyperlipidemia, unspecified; I10 Essential (primary) hypertension; N40.0 Benign prostatic hyperplasia without lower urinary tract symptoms; G93.5 Compression of brain; E66.9 Obesity, unspecified; F10.10 Alcohol abuse, uncomplicated; R73.9 Hyperglycemia, unspecified; E87.6 Hypokalemia; I48.0 Paroxysmal atrial fibrillation; F17.210 Nicotine dependence, cigarettes, uncomplicated; M48.02 Spinal stenosis, cervical region; Z68.32 Body mass index [BMI] 32.0-32.9, adult; Z79.899 Other long term (current) drug therapy
CPT/HCPCS: 36415; 71045; 80048; 80053; 80061; 80307; 83036; 83735; 84100; 84443; 84484; 85025; 85730; 93005; 96365; 96366; 96368; 96375; 96376; 99284; 99406; J7030; A4216; J0153

== ENCOUNTER → 2020-11-02 10:44 | Outpatient (CLI) | payer OTHER, SELFPAY ==
[2020-11-02 10:11] VITALS: BMI 31.4
[2020-11-02 10:46] LABS: Mucous, Urine 0 SEEN /hpf (<or=2+); Red Blood Cells-Urine 0 SEEN /hpf (0-5); Squamous Epithelial Cells - UA 0 SEEN /hpf (0-5); White Blood Cells 0 SEEN /hpf (0-5)
[2020-11-02 12:34] LABS: Color, Urine Yellow (Yellow); Glucose, Dipstick Normal (Normal); Ketone-Dipstick Negative (Negative); Leukocyte Esterase-Dipstick Negative /ul (Negative); Nitrite-Dipstick Negative (Negative); Occult Blood-Urine Negative /ul (Negative); Protein-Dipstick Negative (Negative); Specific Gravity, Urine 1.015 (1.002-1.030); Urine Bilirubin Dipstick Negative (Negative); Urine Clarity Sl. Cloudy (Clear); Urine Urobilinogen Normal (Normal)
[2020-11-02 12:55] LABS: Amorphous Sediment 1+; Bacteria 3+ /hpf (None Seen)
== END ==
LOC: BIMLAB 10:45
PROVIDERS: PCP Internal Medicine; Referring Provider Nurse Practitioner Family; Visit Provider Nurse Practitioner Family
DX: R10.9 Unspecified abdominal pain (principal); N40.0 Benign prostatic hyperplasia without lower urinary tract symptoms
CPT/HCPCS: 36415; 81001; 84153; 87086; 87088; G0103

== ENCOUNTER 2020-11-22 20:58 | Emergency (ER) | payer OTHER, SELFPAY ==
[2020-11-21 13:13] VITALS: BMI 31.4
[2020-11-22 20:59] VITALS: BP 149/89; PULSE 66; RESP 67; TEMP 36.6; O2SAT 97; BMI 32.6
[2020-11-22 21:07] VITALS: BP 165/90; PULSE 65; RESP 13; O2SAT 97
--- NOTE | 2020-11-22 21:19 | ED.VIS.GEN ---
History of Present Illness Chief Complaint: Hypertension Informant: Patient Onset: Today Narrative: Patient presents secondary to concerns of high blood pressure. He was recently admitted to the hospital for atrial flutter. He was started on Cardizem along with lisinopril and Eliquis. Patient states that his blood pressures have been doing very well in the 1 teens over 70s. When he saw his PCP earlier this week blood pressure was noted to be low at 98 systolic and he was feeling lightheaded. At that time she asked the patient cut his lisinopril back from 10 mg to 5 mg. This morning he had another episode of hypotension and skipped his lisinopril altogether. Tonight after dinner he felt slight head pressure. He checked his blood pressure and it was 140s systolic. He rechecked it was in the 160s. He went ahead and took lisinopril 5 mg along with his normal dose of Eliquis and presented to the emergency room. He denies chest pain or palpitations. While he does complain of a mild headache he states he gets the same type of headache secondary to his lower cervical degenerative changes. He had previously taken meloxicam for this but has not been able to take it while he is on Eliquis. - Past Medical History (1) Atrial flutter Status: Chronic (2) Anxiety and depression Status: Chronic (3) BPH (benign prostatic hyperplasia) Status: Chronic (4) Cervical nerve root impingement Status: Chronic (5) Chiari I malformation Status: Chronic (6) GERD (gastroesophageal reflux disease) Status: Chronic (7) HLD (hyperlipidemia) Status: Chronic (8) HTN (hypertension) Status: Chronic (9) Paroxysmal atrial fibrillation Status: Chronic Past Medical History - Allergies and Home Meds Allergies/Adverse Reactions: Allergies Penicillins Allergy (Verified 11/17/20 14:59) Unknown adhesive tape Adverse Reaction (Verified 11/17/20 14:59) BLISTERS Primary Care Physician: Francisco Jacobson MD [Primary Care Provider] - Prior records reviewed: Yes Surgical History: - - Chest lump removal, excision basal cell carcinoma, arthroscopic knee surgery, penile surgery. Lives: With Family Smoking Status: Current some day smoker - Family History Maternal Family History: Family History (Last Reviewed 11/02/20 @ 10:11 by Cynthia Ferro) Grandfather Myocardial infarction, Onset Age: 41 Uncle Myocardial infarction, Onset Age: 64 Aunt CVA (cerebral vascular accident) Depression Father Alcoholism Hypertension Cancer Family History: Reports: Stroke Paternal Family History: Family History (Last Reviewed 11/02/20 @ 10:11 by Cynthia Ferro) Grandfather Myocardial infarction, Onset Age: 41 Uncle Myocardial infarction, Onset Age: 64 Aunt CVA (cerebral vascular accident) Depression Father Alcoholism Hypertension Cancer Family History: Reports: Cancer, Hypertension, - - Father with history of EtOH abuse. Review of Systems General: Denies: Chills, Fever Eyes: Denies: Visual changes - bilaterally ENT: Denies: Bilateral ear pain Cardiovascular: Denies: Chest pain Respiratory: Denies: Dyspnea, Cough Gastrointestinal: Denies: Abdominal pain, Nausea, Vomiting, Diarrhea Musculoskeletal: Reports: Neck pain Neurological: Reports: Headache. Denies: Weakness, Parasthesia Hematologic: Denies: Easy bruising, Easy bleeding Allergy: Denies: Uticaria Physical Exam Vital Signs/Narrative: Vital Signs Temp Pulse Resp BP Pulse Ox 11/22/20 20:59 98 F 66 67 H 149/89 H 97 Inital Vital Signs reviewed: Yes General: Well nourished, Well developed Head: Normocephalic ENT: Moist mucous membranes Neck: Supple Cardiovascular: Regular rate, Regular rhythm Respiratory: No distress, CTA bilaterally Abdomen: Soft, Nontender, Normal bowel sounds Extremities: Nontender Skin: Normal color Neurological: Alert, Oriented x3 Psychological: Normal affect Diagnostic/Tx/Re-eval - Medical Decision Making Patient had just taken a dose of lisinopril prior to arrival. He was given 50 mg of tramadol to help with his neck pain. On repeat evaluation he does feel improved. Blood pressure is 142/87. Patient will continue to monitor his blood pressure and contact his primary care physician. I will write him for a short course of tramadol to help with his neck pain as he is no longer able to take Mobic. ED Disposition - Plan for ED Patient: Disposition: Home or Assisted Living Diagnosis: Hypertension, Neck pain Instructions: ED Neck Pain, ED Hypertension, Established Prescriptions: traMADol [Ultram] 50 mg PO Q4H PRN PRN 3 Days #20 tablet PRN Reason: Pain Transmission Status: Sent to [facility] #30 Referrals: Francisco Jacobson MD [Primary Care Provider] - 1-2 Weeks
[2020-11-22] MEDS: traMADol 50 MG Tablet PO (21:34)
[2020-11-22 22:16] VITALS: BP 142/87; PULSE 63; RESP 16; O2SAT 96
[2020-11-22 22:31] VITALS: BP 142/87; PULSE 66; RESP 17; O2SAT 94
== END 2020-11-22 22:33 | disposition home or self-care (01) ==
PROVIDERS: Emergency Provider Emergency Medicine; PCP Internal Medicine
DX: I10 Essential (primary) hypertension (principal); M54.2 Cervicalgia; E78.5 Hyperlipidemia, unspecified; Z85.828 Personal history of other malignant neoplasm of skin
CPT/HCPCS: 99282

== ENCOUNTER → 2020-11-23 10:51 | Outpatient (CLI) | payer OTHER, SELFPAY ==
[2020-11-14 08:50] VITALS: BMI 32.5
[2020-11-22 20:59] VITALS: BMI 32.6
--- NOTE | 2020-11-23 10:54 | ECHOD_ITS ---
Reason For Study: PAF Procedure This was a 2D Doppler, Color Flow transthoracic echocardiogram. The exam was of adequate technical quality. Exam performed in department. Left Ventricle Normal LV size. Left ventricular systolic function is normal. The estimated ejection fraction is 60 %. No evidence for diastolic dysfunction. No regional wall motion abnormalities noted. Right Ventricle Normal RV size. Normal systolic function. Atria The left atrium is mildly enlarged. Normal right atrium. No doppler evidence for ASD. Mitral Valve There is no mitral annular calcification. Normal mitral valve. Trivial mitral valve insufficiency. Tricuspid Valve Normal tricuspid valve. Trivial tricuspid valve insufficiency. Right ventricular systolic pressure estimated to be 24 mmHg. Aortic Valve Trisinus/trileaflet aortic valve. Normal aortic valve. Pulmonic Valve The pulmonic valve is not well visualized. Great Vessels Normal sized aortic root. Pericardium/Pleural No pericardial effusion. MMode/2D Measurements & Calculations LVIDd: 5.8 cm IVSd: 0.84 cm Ao root diam: 3.8 cm LVIDs: 4.0 cm LVPWd: 0.92 cm RVDd: 3.7 cm FS: 31.4 % LAV(MOD-bp): 83.6 ml LVAd ap4: 37.3 cm2 SV(MOD-sp4): 80.5 ml LAV(MOD-bp) Indexed: 38.8 ml/m2 EDV(MOD-sp4): 133.5 ml LAV(MOD-sp2): 92.3 ml EDV(sp4-el): 133.4 ml LAV(MOD-sp4): 74.9 ml LVAs ap4: 21.7 cm2 ESV(MOD-sp4): 53.0 ml ESV(sp4-el): 53.2 ml EF(MOD-sp4): 60.3 % EF(sp4-el): 60.1 % SV(sp4-el): 80.2 ml LA A4 area: 24.2 cm2 LA dimension(2D): 3.7 cm RA A4 area: 19.2 cm2 Time Measurements MV dec time: 0.23 sec Doppler Measurements & Calculations MV E max papo: 84.2 cm/sec Lat Peak E' Papo: 13.2 cm/sec Med Peak E' Papo: 9.6 cm/sec MV A max papo: 62.0 cm/sec E/E' lat: 6.4 E/E' med: 8.8 MV E/A: 1.4 Ao V2 max: 163.5 cm/sec LV V1 max: 118.2 cm/sec PA V2 max: 100.9 cm/sec Ao max P.7 mmHg LV V1 max P.6 mmHg TR max papo: 227.4 cm/sec TR max P.7 mmHg ECHO/Echo Complete Interpretation Summary Left ventricular systolic function is normal. The estimated ejection fraction is 60 %. The left atrium is mildly enlarged. Trivial mitral valve insufficiency. Trivial tricuspid valve insufficiency. Right ventricular systolic pressure estimated to be 24 mmHg. No evidence for diastolic dysfunction. Ordering Physician: Juan Colmenares Referring Physician: Francisco Jacobson Performed By: Bryanna Morris, DEAN, RVT
== END ==
PROVIDERS: PCP Internal Medicine; Referring Provider Nurse Practitioner Family; Visit Provider Nurse Practitioner Family
DX: I48.0 Paroxysmal atrial fibrillation (principal); I48.92 Unspecified atrial flutter; E78.5 Hyperlipidemia, unspecified; I10 Essential (primary) hypertension; F17.200 Nicotine dependence, unspecified, uncomplicated
CPT/HCPCS: 93225; 93226; 93306

== ENCOUNTER → 2020-11-25 11:13 | Outpatient (CLI) | payer OTHER, SELFPAY ==
[2020-11-21 13:13] VITALS: BMI 31.4
[2020-11-22 20:59] VITALS: BMI 32.6
--- NOTE | 2020-11-25 12:20 | STRESSREP ---
Stress Test Report Date: 11-25-2020 Procedure: Exercise tolerance test Indications: Paroxysmal atrial fibrillation Consent: Per the patient Procedure: The patient exercised on a Kelvin protocol for 9 minutes completing Stage III achieving a peak heart rate of 142 bpm (86% predicted maximal heart rate) with a peak blood pressure 200/72 mmHg and a peak MET capacity of approximately 10 MET's. The baseline ECG demonstrated normal sinus rhythm. The peak exercise ECG demonstrated ECG changes. There was an isolated PVC in recovery. The functional capacity was considered good. The patient had no complaint of chest discomfort during exercise or recovery. The examination was discontinued secondary to dyspnea. Impression: 1. Technically adequate (percent predicted maximal heart rate greater than 85%) exercise tolerance test 2. Peak exercise ECG with no obvious ECG changes 3. Was an isolated PVC in recovery This note was generated with [employer] software. It may contain incorrect words, spelling, and punctuation that were not noted in checking the note before signing.
== END ==
LOC: CVS 11:13
PROVIDERS: PCP Internal Medicine; Referring Provider Nurse Practitioner Family; Visit Provider Nurse Practitioner Family
DX: I48.0 Paroxysmal atrial fibrillation (principal)
CPT/HCPCS: 93017

== ENCOUNTER → 2020-11-30 20:15 | Outpatient (CLI) | payer OTHER, SELFPAY ==
[2020-11-21 13:13] VITALS: BMI 31.4
[2020-11-22 20:59] VITALS: BMI 32.6
== END ==
PROVIDERS: PCP Internal Medicine; Referring Provider Internal Medicine; Visit Provider Internal Medicine
DX: G47.10 Hypersomnia, unspecified (principal)
CPT/HCPCS: 95810

== ENCOUNTER → 2020-12-13 20:14 | Outpatient (CLI) | payer OTHER, SELFPAY ==
[2020-12-09 09:53] VITALS: BMI 32.6
== END ==
PROVIDERS: PCP Internal Medicine; Visit Provider Internal Medicine
DX: G47.33 Obstructive sleep apnea (adult) (pediatric) (principal)
CPT/HCPCS: 95811

== ENCOUNTER → 2020-12-22 12:53 | Outpatient (CLI) | payer OTHER, SELFPAY ==
[2020-12-16 11:45] VITALS: BMI 32.6
== END ==
PROVIDERS: PCP Internal Medicine; Visit Provider Internal Medicine
DX: Z46.89 Encounter for fitting and adjustment of other specified devices (principal)

== ENCOUNTER 2021-03-21 06:58 | Day surgery (SDC) | payer OTHER, SELFPAY ==
[2021-01-25 13:01] VITALS: BMI 32.6
[2021-03-14 08:26] VITALS: BMI 33.3
[2021-03-21 07:20] VITALS: BP 143/90; PULSE 74; RESP 18; TEMP 36.8; O2SAT 96; BMI 32.8
[2021-03-21] MEDS: Lactated Ringers 1,000 ML 100 ML IV (07:35)
--- NOTE | 2021-03-21 07:50 | H&P.OPEN ---
HPI - General HPI Narrative RAMA KENNY, is a 56 M who presents for EGD chronic GERD. Patient has has reflux controlled with H2 jim but he has never had an EGD and has had this for years. Patient has not due for a colonoscopy until 2022. Patient reports no other issues since his last visit. [facility] Medical History (Updated 03/17/21 @ 14:11 by Sahra Domínguez) Actinic keratosis Actinic keratosis of left cheek Alcohol abuse Alcohol use Anxiety Atrial flutter with rapid ventricular response Back problem Basal cell carcinoma Basal cell carcinoma (BCC) of dorsum of nose Basal cell carcinoma of nasal sidewall Blackout Breast lump Carpal tunnel syndrome Cat scratch of right lower leg Cervical spinal stenosis Cervical spine degeneration Chronic headaches CPAP (continuous positive airway pressure) dependence Dysplastic nevus of trunk Easy bruising Family history of prostate problems Gastric reflux High cholesterol History of echocardiogram History of emotional problems History of stress test Hypertension Kidney stones Migraine headache MRSA (methicillin resistant Staphylococcus aureus) Neoplasm of skin of nose Neoplasm of skin of upper arm Neoplasm of unspecified behavior of bone, soft tissue, and skin Neuropathy BRIAN (obstructive sleep apnea) Personal history of Methicillin resistant Staphylococcus aureus infection Psoriasis Restless legs Home Medications acetaminophen 500 mg capsule 500 mg PO BID PRN cap 11/14/20 [History Last Taken Unknown] ascorbic acid (vitamin C) 1,000 mg tablet 1 gm PO DAILY tablet 11/14/20 [History Last Taken Unknown] cholecalciferol (vitamin D3) 25 mcg (1,000 unit) tablet 25 mcg PO DAILY 11/14/20 [History Last Taken Unknown] multivitamin with iron 1 tablet PO DAILY 11/14/20 [History Last Taken Unknown] Sleep apnea supplies #1 each 12/16/20 [Rx Last Taken Unknown] acetaminophen 650 mg tablet,extended release 1,300 mg PO Q12H PRN #180 tablet 12/16/20 [Rx Last Taken Unknown] hydroxyzine HCl 25 mg tablet 25 mg PO BID PRN 01/25/21 [History Last Taken Unknown] tizanidine 2 mg tablet 2 mg PO DAILY PRN PRN tab 01/25/21 [History Last Taken Unknown] acyclovir 400 mg tablet 400 mg PO .COMPLEX PRN #7 tab 02/17/21 [Rx Last Taken Unknown] atorvastatin 20 mg tablet 20 mg PO QHS #7 tab 02/17/21 [Rx Last Taken Unknown] diltiazem HCl 120 mg capsule,extended release 24 hr 120 mg PO DAILY #7 cap 02/17/21 [Rx Last Taken Unknown] famotidine 20 mg tablet 20 mg PO DAILY #7 tab 02/17/21 [Rx Last Taken Unknown] venlafaxine 37.5 mg capsule,extended release 24 hr 37.5 mg PO QHS #7 cap 02/17/21 [Rx Last Taken Unknown] tramadol 50 mg tablet 50 mg PO Q12H PRN #14 tablet 03/08/21 [Rx Last Taken Unknown] aspirin 325 mg tablet,delayed release 325 mg PO DAILY #1 tab 03/14/21 [Rx Last Taken Unknown] lisinopril 5 mg PO 1500 03/17/21 [History Last Taken Unknown] tamsulosin 0.4 mg PO QHS 03/17/21 [History Last Taken Unknown] cyclobenzaprine 10 mg tablet 10 mg PO HS PRN #30 tab 03/20/21 [Rx Last Taken Unknown] Allergy/AdvReac Type Severity Reaction Status Date / Time Penicillins Allergy Unknown Verified 03/21/21 07:17 adhesive tape AdvReac BLISTERS Verified 03/21/21 07:17 Family History (Reviewed 02/16/21 @ 09:53 by Juan Colmenares [employer], [employer]) Grandfather Myocardial infarction, Onset Age: 41 Uncle Myocardial infarction, Onset Age: 64 Aunt CVA (cerebral vascular accident) Depression Father Alcoholism strong family history on paternal side. Hypertension Cancer Surgical History (Reviewed 02/16/21 @ 09:53 by Juan Colmenares [employer], [employer]) chest lump removed excision of basal cell carcinoma right lateral nasal sidewal H/O arthroscopic knee surgery History of basal cell carcinoma excision lesion removed off of penis removal of ingrown toenail Social History (Reviewed 02/16/21 @ 09:53 by Juan Colmenares [employer], [employer]) Smoking Status: Current some day smoker tobacco type: cigarettes alcohol intake: former details: None since hospital admission substance use type: does not use caffeine: No what type of physical activity do you participate in: none Past Medical/Surgical History Planned Operation Planned Operative Procedure/s: EGD S.O.S: No Previous Hospitalizations/Surgeries HX Hospitalizations: No HX of Surgeries: CYST REMOVED FROM PENIS 2016 RIGHT KNEE SCOPE LUMP REMOVED FROM CHEST AT AGE 13 COLONOSCOPY Any Problems With Anesthesia: No You/Your Family Experience Fever (Hyperthermia) With Anes: No Cholinesterase deficiency: No Cardiovascular Hx Chest Pain within Last 2 months: No Hx of Irregular Heartbeat and/or Afib: Yes Hx Heart Attack: No Hx Congestive Heart Failure: No Hx Rheumatic Fever: No Hx Hypertension: Yes Hx Internal Defibrillator: No Hx Pacemaker: No Hx Cardiac Catheterization: No Hx Cardiac Surgery/Stents/Etc.: No Hx Stress Test: Yes (2004) Hx Pain in Legs when Walking/Leg Cramps: No Respiratory Chronic Cough: No HX of Shortness of Breath: No Hoarseness: No Hx Chronic Obstructive Pulmonary Disease (COPD): No Hx Asthma: No Hx Emphysema: No Hx Sleep Apnea: Yes CPAP: Yes BIPAP: No Hx Respiratory Tract Infection/Cold (presently): No Result (for STOP score): Positive Hx Smoking: Yes Smoking Status: Current some day smoker Gastrointestinal Hx Gastroesophageal Reflux: No Controlled With Meds: Yes Hx Gastrointestinal Disorders: No Hx Gastrointestinal Bleed: No Hx Ulcer: No Hx Hiatal Hernia: No Difficulty Chewing/Swallowing: No Special diet followed at home: No Hx Unplanned Weight Loss of 20#: No HX Unplanned Weight Gain of 20#: No Neurological Hx Seizures: No HX Syncope/Blackout Spells/Unconsciousness: Yes (DIZZY SPELLS LAST 3 YRS) Hx Transient Ischemic Attacks (TIA): No Hx Multiple Sclerosis: No Hx Parkinson's Disease: No Hx Head/Neck Injury: Yes (DDD AND STENOSIS OF CERVICAL SPINE/LIMITED ROM) Hx Headaches: Yes Hx Back Injury/Pain: Yes (C567) Recent Onset of Speech Difficulty: No Restless Legs: Yes Does patient have nerve stimulator: No Blood Disorder Hx Leukemia: No Bleeding Tendencies: No Hx Deep Vein Thrombosis: No Hx High Cholesterol: Yes Blood Transmitted Disease: Yes (HERPES VIRUS) Hx Hepatitis: No Hx Cirrhosis: No Hx Anemia: No Hx Blood Disorders: No Genitourinary Hx Renal Disease: No (ENLARGED PROSTATE) Hx Dialysis: No Musculoskeletal Hx Arthritis: Yes Hx Rheumatoid Arthritis: No Hx Gout: No Recent Onset of an Orthopedic Problem: No Endocrine Hx Diabetes: No Thyroid Disease: No Hx Steroid Therapy: No Psycho/Social Hx Substance Use: No Hx Alcohol Use: Yes Hx Anxiety: Yes Hx Depression: Yes Mental Illness: No Hx Dementia: No Miscellaneous Hx Cancer: Yes (BASAL CELL) Recent Exposure to Contagious Disease: No Hx of C-Diff: No Any Loose Teeth: No Allergies Penicillins Allergy (Verified 03/21/21 07:17) Unknown adhesive tape Adverse Reaction (Verified 03/21/21 07:17) BLISTERS Maternal: Family History (Reviewed 02/16/21 @ 09:53 by Juan Colmenares [employer], [employer]) Grandfather Myocardial infarction, Onset Age: 41 Uncle Myocardial infarction, Onset Age: 64 Aunt CVA (cerebral vascular accident) Depression Father Alcoholism Hypertension Cancer Stroke Paternal: Family History (Reviewed 02/16/21 @ 09:53 by Juan Colmenares [employer], [employer]) Grandfather Myocardial infarction, Onset Age: 41 Uncle Myocardial infarction, Onset Age: 64 Aunt CVA (cerebral vascular accident) Depression Father Alcoholism Hypertension Cancer Cancer, Hypertension and - (Father with history of EtOH abuse.) Discharge Is Pt Admitted From a Care Home, or a Intermediate: No Who Could Help: friend/family After D/C, Where Do you Plan to Go: Return Home Vital Signs Vital Signs Vital Signs: 03/21/21 07:20 Temperature 98.2 F Temperature Source Temporal Pulse Rate 74 Respiratory Rate 18 Respiratory Pattern Normal Blood Pressure 143/90 H Blood Pressure Mean 107 Blood Pressure Source Monitor Blood Pressure Position Semi-Fowlers Blood Pressure Location Right Arm Pulse Ox 96 Oxygen Delivery Method Room Air Weight Weight: 225 lb 4.999 oz Body Mass Index (BMI) 32.8 Physical Exam Const alert and oriented x3 Resp normal respiratory effort and normal air movement Cardio regular rate and regular rhythm GI soft to palpation, non-tender and non-distended Assessment & Plan Assessment/Plan (1) GERD (gastroesophageal reflux disease): QUALIFIERS: Esophagitis presence: esophagitis presence not specified Qualified Code(s): K21.9 - Gastro-esophageal reflux disease without esophagitis PLAN: I explained endoscopy in detail to the patient. I explained the risks including but not limited to stroke or heart attack with anesthesia, perforation of the GI tract, bleeding, infection. I explained that any of these could necessitate further emergency surgery. The patient understands and all questions were answered sufficiently. The patient wishes to proceed with procedure. Oliverio Solitario MD Pager: [facility] [address] [place] [address], [address] [place] [address] Office: Surgery Risks - Colonoscopy Risks Include but are not Limited To: Risks include but are not limited to: Bleeding, perforation requiring further surgery, inability to complete colonoscopy requiring barium enema.
--- NOTE | 2021-03-21 08:00 | IMM_PTH ---
PATIENT: RAMA KENNY LOC: EN U#:[id number] AGE/SX: 56/M ROOM: RE03/21/[address]: Dr. Oliverio Solitario MD : 1965 BED: DIS: 03/21/2021 SPEC #: [id number] RECD: 03/21/21 11:35 STATUS: MAIK REAimee #: [id number] ANI: 03/21/21 08:[address]: Oliverio Solitario DEPT: IMMUNOHISTOCHEMISTRY RECD BY: Ping Jefferson ENTERED: 03/21/21 11:36 SP TYPE: IMMUNO OTHR DR: Dr. Francisco Jacobson MD Tissues: Stomach, NOS Procedures: H Pylori (initial) PHYSICIAN & INSTITUTION [place] [address] SPECIMEN INFORMATION: Tissue Source: Antrum biopsy Clinical Info: GERD Specimen Number: [id number] CPT code: 80654 METHODOLOGY: Deparaffinized sections of prefer/formalin-fixed tissue or PAP/DQ stained slides are incubated with monoclonal/polyclonal antibodies/oligonucleotide probes. Localization is made via biotin free immunoperoxidase method. Appropriate controls are performed and reacted as expected. Results on target cell population are indicated in the following table: RESULTS: ANTIBODY / CLONE RESULT H Pylori (polyclonal) negative These tests were developed and their performance characteristics determined by [facility]. They may not have been cleared or approved by the U.S. Food and Drug Administration. The FDA has determined that such clearance or approval is not necessary. INTERPRETATION: Antrum biopsy: Negative for Helicobacter pylori organisms. REYNALDO:susi 03/22/2021
--- NOTE | 2021-03-21 08:00 | EGD_PTH ---
PATIENT: RAMA KENNY LOC: EN U#:[id number] AGE/SX: 56/M ROOM: RE03/21/[address]: Dr. Oliverio Solitario MD : 1965 BED: DIS: 03/21/2021 SPEC #: [id number] RECD: 03/21/21 10:40 STATUS: MAIK ALONDRA #: [id number] ANI: 03/21/21 08:[address]: Oliverio Solitario DEPT: SURGICAL PATHOLOGY RECD BY: Cristy Urena ENTERED: 03/21/21 11:39 SP TYPE: EGD BIOPSY OT DR: Dr. Francisco Jacobson MD Tissues: Gastric mucous membrane Procedures: Surgery Specimen Level IV HEADER OPERATION: EGD ([facility]) PRE-OP DIAGNOSIS: GERD TISSUE SUBMITTED: Antrum for H. pylori and path MICROSCOPIC DIAGNOSIS Antrum, biopsy: Mild gastritis. See microscopic description and comment. SJ:susi 03/22/2021 COMMENT The results of immunohistochemistry for Helicobacter pylori will be reported separately ([id number]). MICROSCOPIC DESCRIPTION Slides are reviewed. The specimen shows fragments of gastric mucosa with chronic inflammatory cell infiltrates in the lamina propria consisting of lymphocytes and plasma cells, consistent with mild chronic gastritis. GROSS DESCRIPTION Received in fixative is one container labeled with the patient's name and designated antrum biopsy. The specimen consists of two irregular fragments of light cleary soft tissue that in aggregate measure 0.5 x 0.2 x 0.1 cm. The specimen is totally submitted in one cassette. / SJ:susi 03/21/21 TC:3 CPT: 90869
[2021-03-21 08:12] VITALS: BP 116/77; BP 143/90; PULSE 69; RESP 16; TEMP 36.3; O2SAT 93
[2021-03-21 08:15] VITALS: BP 123/79; BP 143/90; PULSE 65; RESP 16; O2SAT 92
--- NOTE | 2021-03-21 08:16 | OP.EGD_ITS ---
Patient Name: Major Luque Procedure Date: 03/21/2021 7:54 AM Date of : 1965 Age: 56 Procedure: Upper GI endoscopy Indications: Gastro-esophageal reflux disease Providers: Oliverio Solitario MD Referring MD: Francisco Jacobson MD Medicines: Monitored Anesthesia Care Patient Profile: This is a 56 year old male. Refer to note in patient chart for documentation of history and physical. Complications: No immediate complications. Procedure: Pre-Anesthesia Assessment: - Prior to the procedure, a History and Physical was performed, and patient medications and allergies were reviewed. The patient's tolerance of previous anesthesia was also reviewed. The risks and benefits of the procedure and the sedation options and risks were discussed with the patient. All questions were answered, and informed consent was obtained. Prior Anticoagulants: The patient has taken no previous anticoagulant or antiplatelet agents. After reviewing the risks and benefits, the patient was deemed in satisfactory condition to undergo the procedure. After obtaining informed consent, the endoscope was passed under direct vision. Throughout the procedure, the patient's blood pressure, pulse, and oxygen saturations were monitored continuously. The gastroscope was introduced through the mouth, and advanced to the fourth part of duodenum. The upper GI endoscopy was accomplished without difficulty. The patient tolerated the procedure well. Scope In: 8:03:39 AM Scope Out: 8:06:55 AM Total Procedure Duration Time 0 hours 3 minutes 16 seconds Findings: One non-bleeding cratered gastric ulcer with no stigmata of bleeding was found in the prepyloric region of the stomach. Biopsies were taken with a cold forceps for Helicobacter pylori testing. The esophagus was normal. The examined duodenum was normal. Impression: - Non-bleeding gastric ulcer with no stigmata of bleeding. Biopsied. - Normal esophagus. - Normal examined duodenum. Recommendation: - Discharge patient to home. - Resume previous diet. - Continue present medications. - Use Prilosec (omeprazole) 40 mg PO daily for 2 months. Procedure Code(s): --- Professional --- 38264, Esophagogastroduodenoscopy, flexible, transoral; with biopsy, single or multiple Diagnosis Code(s): --- Professional --- K25.9, Gastric ulcer, unspecified as acute or chronic, without hemorrhage or perforation K21.9, Gastro-esophageal reflux disease without esophagitis CPT copyright 2017 [employer]. All rights reserved. The codes documented in this report are preliminary and upon health assistant review may be revised to meet current compliance requirements. Oliverio Solitario MD 03/21/2021 8:16:11 AM This report has been signed electronically. Number of Addenda: 0 Note Initiated On: 03/21/2021 7:54 AM
--- NOTE | 2021-03-21 08:17 | OP.CCLET_ITS ---
03/21/2021 Francisco Jacobson MD [address] [place] [address] [place] [address] Re : Upper GI endoscopy procedure for Major Luque Dear Dr. Jacobson This procedure was performed on Sunday, March 21, 2021. My impressions and recommendations are as follows: Impressions : - Non-bleeding gastric ulcer with no stigmata of bleeding. Biopsied. - Normal esophagus. - Normal examined duodenum. Recommendations : - Discharge patient to home. - Resume previous diet. - Continue present medications. - Use Prilosec (omeprazole) 40 mg PO daily for 2 months. My findings are described in the full procedure note, which is enclosed. If I can be of further assistance, please feel free to contact me at Doctor phone number(s): , Work: . Sincerely, Oliverio Solitario MD 03/21/2021 8:16:11 AM This report has been signed electronically.
[2021-03-21 08:20] VITALS: BP 122/83; BP 143/90; PULSE 64; RESP 16; O2SAT 92
[2021-03-21 08:25] VITALS: BP 127/84; BP 143/90; PULSE 62; RESP 16; O2SAT 95
[2021-03-21 08:30] VITALS: BP 143/90; BP 145/89; PULSE 63; RESP 16; TEMP 36.3; O2SAT 92
== END 2021-03-21 08:51 ==
LOC: EN 06:59 → AC 06:59
PROVIDERS: PCP Internal Medicine; Referring Provider Internal Medicine; Visit Provider Surgery
PROC: 0DJ08ZZ Inspection of Upper Intestinal Tract, Via Natural or Artificial Opening Endoscopic (ICD-10-PCS; CPT 43235; principal; 2021-03-21 07:55)
DX: K29.70 Gastritis, unspecified, without bleeding (principal); K25.9 Gastric ulcer, unspecified as acute or chronic, without hemorrhage or perforation; K21.9 Gastro-esophageal reflux disease without esophagitis; F17.210 Nicotine dependence, cigarettes, uncomplicated; E78.00 Pure hypercholesterolemia, unspecified; I10 Essential (primary) hypertension; G47.33 Obstructive sleep apnea (adult) (pediatric); M48.02 Spinal stenosis, cervical region; M50.30 Other cervical disc degeneration, unspecified cervical region; M19.90 Unspecified osteoarthritis, unspecified site; B00.9 Herpesviral infection, unspecified; I48.92 Unspecified atrial flutter; I48.0 Paroxysmal atrial fibrillation; G62.9 Polyneuropathy, unspecified; F32.9 Major depressive disorder, single episode, unspecified; G56.00 Carpal tunnel syndrome, unspecified upper limb; L40.9 Psoriasis, unspecified; Z85.828 Personal history of other malignant neoplasm of skin; Z79.82 Long term (current) use of aspirin; Z79.899 Other long term (current) drug therapy; Z86.14 Personal history of Methicillin resistant Staphylococcus aureus infection
CPT/HCPCS: 43239; 87426; 88305; 88342; C9803; J7120; J2405

== ENCOUNTER → 2021-08-08 12:40 | Outpatient (CLI) | payer OTHER, SELFPAY ==
--- NOTE | 2021-08-08 12:41 | CT_ITS ---
STUDY: LOW DOSE CT LUNG CANCER SCREENING REASON FOR EXAM: Male, 56 years old. LDCT 35 PACK YEAR HISTORY RADIATION DOSAGE (If Supplied By Facility): CTDIvol = ( 4.02 ) mGy, DLP = ( 144.96 ) mGycm TECHNIQUE: No contrast was administered. Low dose technique was utilized (average mAS-38 and kVp 120). 1.25 mm axial source images with a slice interval of 1.25-mm were reconstructed in lung windows. 2.5 mm axial source images with a slice interval of 2.5-mm were reconstructed in lung windows. 5.0 mm axial source images with a slice interval of 5.0-mm were reconstructed in soft tissue windows. Nodule measured using lung windows on PACS and/or independent workstation with automated measurement of minimum and maximum diameter. Nodule measurement reported as average diameter rounded to the nearest whole number. Growth is defined as an increase ins size of greater than 1.5 mm. COMPARISON: None. NODULES: No suspicious nodules are seen. Emphysema: Minimal degree of emphysema. Endobronchial lesion: Unremarkable Aorta: Atherosclerotic plaque formation of the aortic arch. Coronary arteries: Mild degree of coronary artery calcification. Mediastinal nodes: Small benign-appearing mediastinal lymph nodes. Other chest and abdominal findings: CT/Low Dose CT Lung Screening IMPRESSION: Lung-RADS category 2 - Continue annual screening with LDCT in 12 months. IMPORTANT NOTES FOR USE: ACR Lung-RADS Version 1.1 Assessment Categories Release Date: 2018 Category: Coded 0-4 bases on nodule(s) with highest degree of suspicion. Negative screen is defined as categories 1 and 2; a positive screen is defined as categories 3 and 4. Category 3 and 4A nodules that are unchanged on interval CT should be coded as category 2, and individuals returned to screening in 12 months. Category 4X: Category 3 or 4 nodules with additional imaging findings that increase the suspicion of lung cancer, such as spiculation, GGN that doubles in size in 1 year, enlarged lymph notes, etc. Category Modifiers: S (significant finding unrelated to lung cancer) Electronically Signed: Jaret Betancourt MD at 13:07 EST , Service support ,
== END ==
PROVIDERS: PCP Internal Medicine; Referring Provider Nurse Practitioner Family; Visit Provider Nurse Practitioner Family
DX: Z87.891 Personal history of nicotine dependence (principal); Z12.2 Encounter for screening for malignant neoplasm of respiratory organs
CPT/HCPCS: 71271

== ENCOUNTER 2021-11-14 14:19 | Outpatient (CLI) | payer MEDICAID, SELFPAY ==
[2021-11-14 15:09] LABS: Absolute Lymphocyte Count 2.02 X10^3/uL (0.83-4.51); Absolute Neutrophil Count 5.5 X10^3/uL (2.0-7.7); Basophil# 0.05 X10^3/uL; Basophil% 0.6 % (0-1); Eosinophil# 0.05 X10^3/uL; Eosinophils% 0.6 % (0-5); Hematocrit 45.3 % (40-54); Hemoglobin 15.8 g/dL (13.0-16.5); Lymphocyte # 2.02 X10^3/ul (0.83-4.51); Mean Corp Hgb Conc 34.9 g/dL (32-36); Mean Corpuscular Hgb 34.4 pg (27.0-32.0); Mean Corpuscular Volume 98.7 fL (80-94); Mean Platelet Vol. 10.5 fl (6.2-12.0); Monocyte# 0.79 X10^3/uL; Monocyte% 9.4 % (0-10); NRBC Flagged by Analyzer 0 % (0-5); Neutrophil # 5.47 X10^3/uL (2.7-7.7); Platelet Count 272 K/mm3 (150-450); RBC Distribution Width CV 12.1 % (11.6-14.6); RBC Distribution Width SD 44.4 fl (35.1-43.9); Red Blood Count 4.59 M/mm3 (4.6-6.2); White Blood Count 8.4 K/mm3 (4.4-11.0)
[2021-11-14 15:39] LABS: AST(SGOT) 25 U/L (15-37); Alanine Aminotransfer ALT/SGPT 67 U/L (16-61); Albumin, Serum 3.9 g/dL (3.2-5.0); Alkaline Phosphatase 94 U/L (45-117); Anion Gap 5 (5-15); BUN 15 mg/dL (7-18); BUN/Creat Ratio 16.9 RATIO (10-20); Calcium,Total 8.9 mg/dL (8.5-10.1); Chloride 109 mmol/L (98-107); Creatinine, Serum 0.89 mg/dL (0.70-1.30); EST Glomerular Filtration Rate 93 mL/min (>60); Est Glom Filt Rate - Afr Amer 113 mL/min (>60); Globulin 3.8 g/dL (2.2-4.2); Glucose 108 mg/dL (74-106); Magnesium 2.2 mg/dL (1.6-2.6); Protein, Total 7.7 g/dL (6.4-8.2); Sodium Level 138 mmol/L (136-145); Thyroid Stim Hormone (TSH) 0.78 uIU/mL (0.358-3.74)
== END 2021-11-14 23:59 | disposition home or self-care (01) ==
LOC: BIMLAB 14:20
PROVIDERS: PCP Internal Medicine; Referring Provider Nurse Practitioner Family; Visit Provider Nurse Practitioner Family
DX: R00.2 Palpitations (principal)
CPT/HCPCS: 36415; 80053; 83735; 84443; 85025

== ENCOUNTER 2022-01-09 10:22 | Day surgery (SDC) | payer MEDICAID, SELFPAY ==
--- NOTE | 2022-01-04 13:30 | RAD_ITS ---
STUDY: X-RAY CHEST REASON FOR EXAM: Male, 56 years old. Pre Procedure , cardioversion TECHNIQUE: PA and lateral views of the chest. COMPARISON: 10/23/2020 FINDINGS: The lungs are clear and expanded. There is no demonstrated pleural abnormality. Normal size heart. Normal mediastinum and coby. Normal visualized pulmonary arteries. Normal visualized aortic arch and descending thoracic aorta. There are diffuse degenerative changes of the visualized thoracic spine. Normal visualized ribs, clavicles, and shoulders. There is no demonstrated abnormality of the visualized soft tissue structures of the upper abdomen. RAD/Chest PA and Lateral IMPRESSION: Normal x-ray examination of the chest. Electronically Signed: Antione Martin MD ([place]) at 18:32 EDT ,
[2022-01-04 16:14] LABS: Anion Gap 5 (5-15); BUN 15 mg/dL (7-18); BUN/Creat Ratio 15.7 RATIO (10-20); Chloride 110 mmol/L (98-107); Creatinine, Serum 0.95 mg/dL (0.70-1.30); EST Glomerular Filtration Rate 86 mL/min (>60); Est Glom Filt Rate - Afr Amer 104 mL/min (>60); Glucose 131 mg/dL (74-106); Potassium 3.5 mmol/L (3.5-5.1); Sodium Level 140 mmol/L (136-145)
[2022-01-08 09:56] VITALS: BMI 33.5
--- NOTE | 2022-01-08 13:01 | PCM.HP.BLA ---
Documented by User: Juan Colmenares NP, SECURITY CONTROL ASSESSOR-C 01/08/22 13:06 History and Physical Date of Admission: 01/09/22 This is a 56-year-old white male who presents today for cardioversion. He has a history of paroxysmal atrial fibrillation/flutter (September,) superimposed upon a history of hyperlipidemia, hypertension, and BRIAN/CPAP therapy. He states feeling fatigue and palpitations. He states noting upper chest muscle discomfort. He denies exertional chest discomfort or SOB. He denies bilateral edema, orthopnea, PND, or cough. Intake Vital Signs: See EMR Intake [facility]: No Is patient in pain?: No Allergies Penicillins Allergy (Verified 12/01/21 13:17) Unknown adhesive tape Adverse Reaction (Verified 12/01/21 13:17) BLISTERS Medications See EMR [facility] Medical History Actinic keratosis Actinic keratosis of left cheek Alcohol abuse Alcohol use Anxiety Atrial fibrillation Atrial flutter with rapid ventricular response Back problem Basal cell carcinoma Basal cell carcinoma (BCC) of dorsum of nose Basal cell carcinoma of nasal sidewall Blackout Breast lump Carpal tunnel syndrome Cat scratch of right lower leg Cervical spinal stenosis Cervical spine degeneration Chronic headaches CPAP (continuous positive airway pressure) dependence Dysplastic nevus of trunk Easy bruising Encounter for screening for malignant neoplasm of lung in current smoker with 30 pack year history or greater Essential hypertension Family history of prostate problems Gastric reflux Heart palpitations High cholesterol History of echocardiogram History of emotional problems History of stress test Hypertension Kidney stones Migraine headache MRSA (methicillin resistant Staphylococcus aureus) Neoplasm of skin of abdomen Neoplasm of skin of back Neoplasm of skin of nose Neoplasm of skin of thigh Neoplasm of skin of upper arm Neoplasm of unspecified behavior of bone, soft tissue, and skin Neuropathy BRIAN (obstructive sleep apnea) Personal history of Methicillin resistant Staphylococcus aureus infection Psoriasis Restless legs Surgical History chest lump removed excision of basal cell carcinoma right lateral nasal sidewal H/O arthroscopic knee surgery History of basal cell carcinoma excision lesion removed off of penis removal of ingrown toenail Family History Grandfather Myocardial infarction, Onset Age: 41 Uncle Myocardial infarction, Onset Age: 64 Aunt CVA (cerebral vascular accident) Depression Father Alcoholism strong family history on paternal side. Hypertension Cancer Social History Smoking Status: Current some day smoker (1-2 packs per week ) tobacco type: cigarettes second hand exposure: Yes quit status: considering quitting counseling given: provider counseling alcohol intake: former details: None since hospital admission substance use type: does not use caffeine: Yes (none the last couple days) what type of physical activity do you participate in: none ROS Const Const: Negative for fatigue, weakness, body ache, fever(s) or chills ENT ENT: Negative for dizziness or Nosebleed/epistaxis Cardio Chest Pain: No Palpitations: No Edema: None Muscle aches with walking: None Resp Respiratory: Negative for SOB with activity, SOB at rest, SOB orthopnea\SOB lying down, Cough or paroxysmal nocturnal dyspnea GI GI: Negative nausea, vomiting blood/hematemesis, bright, red blood in stools or black,tarry stools : Negative for hematuria or frequent nighttime urination/ nocturia Musc Musc: Negative for muscle aches/ myalgia Skin Skin: Negative non-healing lesions or rash Neuro Neuro: Negative for dizziness, lightheadedness, near syncope, syncope, orthostatic symptoms or weakness Endo Endo: Negative for fatigue Allergy Allergy/Immunology: Negative for rash Cardiology Exam Const Appearance: cooperative, healthy appearing, comfortable and no acute distress Nutritional Appearance: well nourished and obese Orientation: alert, awake and oriented x3 Head Head: normal to inspection Ears: hearing grossly normal bilaterally Nose: external nose normal Face and Sinus: face symmetric Mouth: oral mucosae normal Eyes General: appearance normal, both eyes and all related structures Eyelids: eyelids normal EOM: EOM intact bilaterally Neck Neck: normal visual inspection and no JVD Carotids: normal carotid upstroke Chest Chest inspection: normal inspection of the chest, symmetric chest movement and normal respiratory effort; Negative cough Auscultation: Bilateral: Clear to Auscultation Cardio Rate: regular rate Rhythm: irregular rhythm Heart sounds: S1 normal and S2 normal; Negative rub, gallop or murmur GI GI: normal to inspection and obese Neuro General: patient alert, patient awake, patient oriented x3 and CN's II-XI intact bilaterally Skin Skin: no rashes or lesions noted Extremities Pulses: Normal: Right Posterior Tibial Pulse, Left Posterior Tibial Pulse, Right Radial Pulse and Left Radial Pulse Lower Extremity Edema: None: Bilateral Psych Psychological: normal affect Supplemental Info Supplemental Information Echocardiogram from 11/23/2020: Interpretation Summary Left ventricular systolic function is normal. The estimated ejection fraction is 60 %. The left atrium is mildly enlarged. Trivial mitral valve insufficiency. Trivial tricuspid valve insufficiency. Right ventricular systolic pressure estimated to be 24 mmHg. No evidence for diastolic dysfunction. Stress Test Report Date: 11-25-2020 Procedure: Exercise tolerance test Indications: Paroxysmal atrial fibrillation Consent: Per the patient Procedure: The patient exercised on a Kelvin protocol for 9 minutes completing Stage III achieving a peak heart rate of 142 bpm (86% predicted maximal heart rate) with a peak blood pressure 200/72 mmHg and a peak MET capacity of approximately 10 MET's. The baseline ECG demonstrated normal sinus rhythm. The peak exercise ECG demonstrated ECG changes. There was an isolated PVC in recovery. The functional capacity was considered good. The patient had no complaint of chest discomfort during exercise or recovery. The examination was discontinued secondary to dyspnea. Impression: 1. Technically adequate (percent predicted maximal heart rate greater than 85%) exercise tolerance test 2. Peak exercise ECG with no obvious ECG changes 3. Was an isolated PVC in recovery Holter monitor: 11-23-2020 Sinus rhythm; rare PACs; rare PVCs Labs: No Data to Display Diagnostics: No Data to Display Pulmonary: No Data to Display Assessment and Plan Assessment and Plan (1) Atrial fibrillation: Status: Acute Plan - Juan Colmenares SECURITY CONTROL ASSESSOR, SECURITY CONTROL ASSESSOR-C: Patient appears to be in an irregular rhythm on exam. His EKG on 01/04/2022 shows atrial fibrillation/flutter at a rate of 96 bpm. His heart rate is well controlled. He has started Eliquis on 11/14/2021 and has remained on such consistently without interruption. He will continue Eliquis for CVA protection. He will continue diltiazem for rate control. His 30-day event monitor continued to show atrial flutter 100% of total time. His heart rate was well controlled. It was recommended to proceed with cardioversion, which he initially deferred. He was seen with primary care provider on 12/26/2021 and he wished to proceed with cardioversion. He has been referred to pulmonology for assistance regarding BRIAN. His echocardiogram October 2020 showed an ejection fraction of 60% and mildly enlarged left atrium. His stress test in November 2020 showed no obvious ECG changes. Today, he will proceed with cardioversion. (2) HLD (hyperlipidemia): Status: Chronic Qualifiers: Hyperlipidemia type: unspecified Qualified Code(s): E78.5 - Hyperlipidemia, unspecified Plan - Juan Colmenares SECURITY CONTROL ASSESSOR, SECURITY CONTROL ASSESSOR-C: He will continue risk factor and lifestyle modification. He will continue atorvastatin 20 mg p.o. nightly. (3) Essential hypertension: Status: Acute Plan - Juan Colmenares SECURITY CONTROL ASSESSOR, SECURITY CONTROL ASSESSOR-C: His blood pressure is well controlled today. Plan Details Additional Comments: Thank you for allowing me to participate in the care of your patient. Please don't hesitate to call if any issues arise. This note was generated using a voice recognition system and there may be incorrect words, spelling or punctuation that were not noted when reviewing the office note prior to saving. Documented by User: Dr. Miguel Angel Álvarez MD 01/09/22 11:07 Assessment & Plan Addt'l Comments I have re-examined the patient. There are no clinical changes since date of exam
--- NOTE | 2022-01-09 12:54 | CARDIOVERS ---
Cardioversion Cardioversion: Date: 01-09-2022 Procedure: Synchronized Biphasic DC Cardioversion Indications: Atrial flutter Consent: Per the Patient Anesthesia: per Dr. Jeffery of pulmonology and critical care medicine with propofol 130 mg IV push total Procedure: Synchronized Biphasic DC Cardioversion: 50 J x 1: Result: Sinus rhythm Complications: no apparent complications This note was generated with [employer] software. It may contain incorrect words, spelling, and punctuation that were not noted in checking the note before signing.
--- NOTE | 2022-01-09 14:10 | PCM.OP.PRO ---
Procedure Report Date of Procedure: 01/09/22 CONSCIOUS SEDATION REPORT DATE OF SERVICE: January 09, 2022 BRIEF HISTORY OF PRESENT ILLNESS: The patient is a 56-year-old male who presented to [facility] for an elective outpatient cardioversion due to underlying atrial flutter. His last surface echocardiogram demonstrated an ejection fraction of approximately 60%. The patient denied any prior anesthetic complications. He is systemically anticoagulated on Eliquis. The patient has a known history of obstructive sleep apnea, for which he reports compliance with the use of nocturnal CPAP therapy. PHYSICAL EXAMINATION: VITAL SIGNS: Reviewed and were acceptable. GENERAL: The patient is a male, in no apparent distress, speaking in full sentences. HEENT: Normocephalic, atraumatic. Mucous membranes are moist and pink. Good mouth opening noted. Trachea is midline. Good neck mobility. CHEST: S1, S2 irregularly irregular. No murmurs, rubs or gallops were noted. LUNGS: Clear to auscultation bilaterally without appreciable wheezes, rales or rhonchi. ABDOMEN: Soft, nontender, nondistended. Positive bowel sounds. EXTREMITIES: There is no clubbing, cyanosis or edema. ASA Class: II DESCRIPTION OF PROCEDURE: After confirmation of informed consent, the patient's anesthesia plan was reviewed in detail. Propofol was chosen. Risks and benefits were reviewed and the patient agreed to proceed. At 1208, the patient was given his first bolus of propofol. In total, the patient required 130 mg of propofol to achieve an appropriate level of sedation, after which time, the patient was given a 50 joule synchronized cardioversion by Dr. Álvarez at the bedside. This was successful in achieving normal sinus rhythm. The patient was monitored until 1220, at which time he reached his baseline mental status and function. The patient tolerated the procedure well. COMPLICATIONS: None ESTIMATED BLOOD LOSS: None RECOMMENDATIONS: Okay to recover in usual fashion. Procedures Pulmonary 9xxxx: [id number] Con Sedation
== END 2022-01-09 13:20 | disposition home or self-care (01) ==
LOC: CLSP 10:23
PROVIDERS: PCP Internal Medicine; Referring Provider Internal Medicine Cardiovascular Disease; Visit Provider Internal Medicine Cardiovascular Disease
DX: I48.91 Unspecified atrial fibrillation (principal); F17.210 Nicotine dependence, cigarettes, uncomplicated; I10 Essential (primary) hypertension; G47.33 Obstructive sleep apnea (adult) (pediatric); E66.9 Obesity, unspecified; Z79.899 Other long term (current) drug therapy; Z79.01 Long term (current) use of anticoagulants
CPT/HCPCS: 36415; 71046; 80048; 92960; 93005; J7030; A4216

== ENCOUNTER → 2022-04-17 | Outpatient (CLI) | payer MEDICAID, SELFPAY | END | disposition home or self-care (01) | LOC: LABSPEC 14:16 | PROVIDERS: PCP Internal Medicine; Referring Provider Physician Assistant; Visit Provider Physician Assistant | DX: U07.1 COVID-19 (principal) | CPT/HCPCS: 87635; U0003; U0005 ==

== ENCOUNTER → 2023-04-24 | Outpatient (CLI) | payer MEDICAID, SELFPAY ==
[2023-04-24 15:01] LABS: Absolute Lymphocyte Count 1.74 X10^3/uL (0.83-4.51); Absolute Neutrophil Count 5.3 X10^3/uL (2.0-7.7); Basophil# 0.04 X10^3/uL; Basophil% 0.5 % (0-1); Eosinophils% 1.3 % (0-5); Hematocrit 43.7 % (40-54); Hemoglobin 14.6 g/dL (13.0-16.5); Lymphocyte # 1.74 X10^3/ul (0.83-4.51); Lymphocyte % 22.3 % (19-41); Mean Corp Hgb Conc 33.4 g/dL (32-36); Mean Corpuscular Hgb 34.3 pg (27.0-32.0); Mean Corpuscular Volume 102.6 fL (80-94); Mean Platelet Vol. 10.8 fl (6.2-12.0); Monocyte# 0.66 X10^3/uL; Monocyte% 8.4 % (0-10); NRBC Flagged by Analyzer 0 % (0-5); Neutrophil # 5.25 X10^3/uL (2.7-7.7); Neutrophil % 67.1 % (47-70); Platelet Count 230 K/mm3 (150-450); RBC Distribution Width CV 12.5 % (11.6-14.6); RBC Distribution Width SD 46.8 fl (35.1-43.9); Red Blood Count 4.26 M/mm3 (4.6-6.2); White Blood Count 7.8 K/mm3 (4.4-11.0)
[2023-04-24 15:35] LABS: AST(SGOT) 31 U/L (15-37); Alanine Aminotransfer ALT/SGPT 72 U/L (16-61); Albumin, Serum 3.6 g/dL (3.2-5.0); Alkaline Phosphatase 93 U/L (45-117); Anion Gap 5 (5-15); BUN 13 mg/dL (7-18); BUN/Creat Ratio 15.6 RATIO (10-20); Calcium,Total 8.8 mg/dL (8.5-10.1); Chloride 106 mmol/L (98-107); Cholesterol 134 mg/dL (200); Creatinine, Serum 0.83 mg/dL (0.70-1.30); EST Glomerular Filtration Rate 101 mL/min (>60); Est Glom Filt Rate - Afr Amer 122 mL/min (>60); Globulin 3.7 g/dL (2.2-4.2); Glucose 91 mg/dL (74-106); High Density Lipoprotein 46 mg/dL; Potassium 3.8 mmol/L (3.5-5.1); Protein, Total 7.3 g/dL (6.4-8.2); Sodium Level 136 mmol/L (136-145); Triglycerides 150 mg/dL; Very Low Density Lipoprotein 30 mg/dL (5-40)
== END | disposition home or self-care (01) ==
LOC: BIMLAB 12:06
PROVIDERS: PCP Internal Medicine; Visit Provider Internal Medicine
DX: I10 Essential (primary) hypertension (principal)
CPT/HCPCS: 36415; 80053; 80061; 85025

== ENCOUNTER 2023-07-10 11:52 | Day surgery (SDC) | payer MEDICAID, SELFPAY ==
[2023-07-10] VITALS (7 sets, daily range): BP systolic 117–140; BP diastolic 78–86; PULSE 67–75; RESP 16; TEMP 36.8–37; O2SAT 97–100; BMI 30.6
[2023-07-10] MEDS: Lactated Ringers 1,000 ML 15 ML IV (12:19)
--- NOTE | 2023-07-10 13:00 | COLBX_PTH ---
PATIENT: RAMA KENNY LOC: EN U#:[id number] AGE/SX: 58/M ROOM: RE07/10/[address]: Dr. Napoleon Graf MD : 1965 BED: DIS: 07/10/2023 SPEC #: [id number] RECD: 07/11/23 07:41 STATUS: MAIK TYAimee #: [id number] ANI: 07/10/23 13:[address]: Napoleon Graf DEPT: SURGICAL PATHOLOGY RECD BY: Gayla Quiroz ENTERED: 07/11/23 07:43 SP TYPE: COLON BX OTHR DR: Dr. Francisco Jacobson MD Tissues: A - Duodenum, NOS B - Gastric mucous membrane C - Gastric mucous membrane D - Esophageal mucous membrane E - Cecum, NOS F - COLON BIOPSY G - Sigmoid colon biopsy H - Rectum, NOS Procedures: Special Stain Group II Surgery Specimen Level IV Alcian Blue/PAS (control) HEADER OPERATION: Colonoscopy with biopsy and polyp biopsy, EGD with biopsy PRE-OP DIAGNOSIS: GERD, positive Cologuard TISSUE SUBMITTED: A - Duodenal bulb mucosa, B - Antral biopsy for H. pylori, C - Gastric body biopsy, D - Gastroesophageal junction, E - Cecal polyp biopsy, F - Distal transverse colon biopsy, G - Sigmoid polyp biopsy, H - Rectal polyp biopsy MICROSCOPIC DIAGNOSIS A. Duodenal bulb, biopsy: Gastric metaplasia with minimal chronic inflammation. B. Gastric antrum, biopsy: Mild chronic gastritis. See comment. C. Gastric body, biopsy: Minimal chronic inflammation. D. Gastroesophageal junction, biopsy: Mild chronic inflammation. 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 No evidence of dysplasia. See comment. E. Cecal polyp, biopsy: Fragments of tubular adenoma. F. Distal transverse colon, biopsy: Polypoid fragments of benign colonic mucosa. See comment. G. Sigmoid colon polyp, biopsy: Fragments of tubular adenoma. H. Rectal polyp, biopsy: Fragments of hyperplastic polyp. AM:susi 07/12/2023 COMMENT B. The results of immunohistochemistry for Helicobacter pylori will be reported separately ([id number]). D. Immunohistochemistry ([id number]) for P53 and Ki-67 will be performed and results will be reported separately. Alcian blue/PAS stain with matched control supports the above diagnosis. F. Neither hyperplastic nor adenomatous change is identified. Clinical correlation is suggested. MICROSCOPIC DESCRIPTION Slides are reviewed. GROSS DESCRIPTION A - Received in fixative is one container labeled with the patient's name and designated duodenal bulb mucosa. The specimen consists of two irregular fragments of light cleary soft tissue that in aggregate measure 0.6 x 0.3 x 0.1 cm. The specimen is totally submitted in one cassette. B - Received in fixative is one container labeled with the patient's name and designated gastric antrum. The specimen consists of one irregular fragment of light cleary soft tissue that measures 0.7 x 0.2 x 0.1 cm. The specimen is totally submitted in one cassette. C - Received in fixative is one container labeled with the patient's name and designated gastric body biopsy. The specimen consists of one irregular fragment of light cleary soft tissue that measures 0.5 x 0.5 x 0.1 cm. The specimen is totally submitted in one cassette. D - Received in fixative is one container labeled with the patient's name and designated GE junction. The specimen consists of two irregular fragments of light cleary soft tissue that in aggregate measure 1.0 x 0.5 x 0.1 cm. The specimen is totally submitted in one cassette. E - Received in fixative is one container labeled with the patient's name and designated cecal polyp. The specimen consists of two irregular fragments of light cleary soft tissue that in aggregate measure 0.6 x 0.3 x 0.1 cm. The specimen is totally submitted in one cassette. F - Received in fixative is one container labeled with the patient's name and designated distal transverse colon. The specimen consists of two irregular fragments of light cleary soft tissue that in aggregate measure 0.7 x 0.5 x 0.1 cm. The specimen is totally submitted in one cassette. G - Received in fixative is one container labeled with the patient's name and designated sigmoid polyp. The specimen consists of multiple irregular fragments of light cleary soft tissue that in aggregate measure 2.0 x 0.7 x 0.1 cm. The specimen is totally submitted in one cassette. H - Received in fixative is one container labeled with the patient's name and designated rectal polyp. The specimen consists of one irregular fragment of light cleary soft tissue that measures 0.6 x 0.3 x 0.1 cm. The specimen is totally submitted in one cassette. / AM:susi 07/11/2023 TC:3 CPT: 61461 x8, 75811
--- NOTE | 2023-07-10 13:00 | IMM_PTH ---
PATIENT: RAMA KENNY LOC: EN U#:[id number] AGE/SX: 58/M ROOM: RE07/10/[address]: Dr. Napoleon Graf MD : 1965 BED: DIS: 07/10/2023 SPEC #: [id number] RECD: 07/11/23 14:48 STATUS: MAIK REQ #: [id number] ANI: 07/10/23 13:[address]: Napoleon Graf DEPT: IMMUNOHISTOCHEMISTRY RECD BY: Ping Jefferson ENTERED: 07/11/23 14:49 SP TYPE: IMMUNO OTHR DR: Dr. Francisco Jacobson MD Tissues: B - Stomach, NOS D - Stomach, NOS Procedures: H Pylori (initial) P53 (initial) KI-67 (add) MOC-31 (add) PHYSICIAN & INSTITUTION [place] [id number] SPECIMEN INFORMATION: Tissue Source: B - Antral biopsy, D - Gastroesophageal junction Clinical Info: GERD, positive Rainer Specimen Number: [id number] B & D CPT code: 09342 x2, 44208 x2 METHODOLOGY: Deparaffinized sections of prefer/formalin-fixed tissue or PAP/DQ stained slides are incubated with monoclonal/polyclonal antibodies/oligonucleotide probes. Localization is made via biotin free immunoperoxidase method. Appropriate controls are performed and reacted as expected. Results on target cell population are indicated in the following table: RESULTS: ANTIBODY / CLONE RESULT Block B H Pylori (polyclonal) negative Block D P53 (DO-7) positive, wild type pattern Ki-67 (30-9) positive, low MOC-31 (4561) positive These tests were developed and their performance characteristics determined by [facility]. They may not have been cleared or approved by the U.S. Food and Drug Administration. The FDA has determined that such clearance or approval is not necessary. The above immunohistochemical/dualISH markers are ordered and reviewed by the Pathologist. INTERPRETATION: B. Gastric antrum, biopsy: Negative for Helicobacter pylori organisms. D. Gastroesophageal junction, biopsy: No evidence of dysplasia. AM:susi 07/15/2023
--- NOTE | 2023-07-10 13:05 | PCM.HP.BLA ---
History and Physical Date of Admission: 07/10/23 Date of Service: 06/05/23 MR#: [id number] Acct: [id number] Name: RAMA KENNY Rep #: [id number] : 1965 Provider: Dr. Napoleon Graf MD Age/Sex: 58/M Location: [facility] Status: Signed Intake Vital Signs 04/24/2311:22 06/05/2310:03 Height 5 ft 9 in 5 ft 9 in Weight: 220 lb 221 lb BMI 32.5 32.6 BP 120/82 H 150/82 H Blood Pressure Location Lt brachial Rt brachial Position Sitting Sitting Respiration 16 17 Pulse 63 60 Pulse Source Monitor Monitor Temp 97.8 F 97.1 F L Temp Source Temporal Temporal Pulse Oximetry (%) 96 98 Oxygen Delivery Method room air room air Intake Visit Reasons: Positive Cologuard Chief Complaint: positive cologuard Is patient in pain?: No Allergies Penicillins Allergy (Verified 06/05/23 10:04) Unknownadhesive tape Adverse Reaction (Verified 06/05/23 10:04) BLISTERS Medications acetaminophen 500 mg capsule 500 mg PO BID PRN Pain 1-10 Or Fever 11/14/20 [History Confirmed 06/05/23] ascorbic acid (vitamin C) 1,000 mg tablet 1 gm PO DAILY 11/14/20 [History Confirmed 06/05/23] cholecalciferol (vitamin D3) 25 mcg (1,000 unit) tablet 25 mcg PO DAILY 11/14/20 [History Confirmed 06/05/23] multivitamin with iron 1 tablet PO DAILY 11/14/20 [History Confirmed 06/05/23] Sleep apnea supplies #1 ea 12/16/20 [Rx Confirmed 06/05/23] hydroxyzine HCl 25 mg tablet 25 mg PO BID PRN Anxiety 01/25/21 [History Confirmed 06/05/23] gabapentin 600 mg tablet 600 mg PO DAILY PRN Pain 11/15/21 [History Confirmed 06/05/23] sumatriptan succinate 50 mg tablet 50 mg PO ONCE PRN Migraine Headache 11/15/21 [History Confirmed 06/05/23] vitamin B complex 1 tab PO DAILY 11/15/21 [History Confirmed 06/05/23] famotidine 20 mg tablet 20 mg PO DAILY #90 tabs 08/02/22 [Rx Confirmed 06/05/23] acyclovir 400 mg tablet 400 mg PO .COMPLEX PRN UNKNOWN #50 tabs 08/09/22 [Rx Confirmed 06/05/23] venlafaxine 75 mg capsule,extended release 24 hr 75 mg PO DAILY #90 caps 11/26/22 [Rx Confirmed 06/05/23] tamsulosin 0.4 mg capsule See Rx Instructions .Route .COMPLEX #90 caps 02/04/23 [Rx Confirmed 06/05/23] apixaban 5 mg tablet (Eliquis) See Rx Instructions .Route .COMPLEX #60 tabs 03/25/23 [Rx Confirmed 06/05/23] cyclobenzaprine 10 mg tablet 10 mg PO HS PRN muscle spasms #30 tabs 04/24/23 [Rx Confirmed 06/05/23] lisinopril 5 mg tablet 5 mg PO DAILY #90 tabs 04/24/23 [Rx Confirmed 06/05/23] tramadol 50 mg tablet 50 mg PO Q12H PRN pain #14 tabs 04/24/23 [Rx Confirmed 06/05/23] atorvastatin 20 mg tablet See Rx Instructions .Route .COMPLEX #90 tabs 04/30/23 [Rx Confirmed 06/05/23] diltiazem HCl 120 mg capsule,extended release 24 hr See Rx Instructions .Route .COMPLEX #90 caps 04/30/23 [Rx Confirmed 06/05/23] [facility] Medical History Actinic keratosis Actinic keratosis of left cheek Alcohol abuse Alcohol use Alcoholism Anxiety Arthritis Atrial fibrillation Atrial flutter with rapid ventricular response Back problem Basal cell carcinoma Basal cell carcinoma (BCC) of dorsum of nose Basal cell carcinoma of nasal sidewall Blackout Breast lump Carpal tunnel syndrome Cat scratch of right lower leg Cervical spinal stenosis Cervical spine degeneration Chronic headaches CPAP (continuous positive airway pressure) dependence Dysplastic nevus of trunk Easy bruising Encounter for screening for malignant neoplasm of lung in current smoker with 30 pack year history or greater Essential hypertension Family history of prostate problems Gastric reflux Heart palpitations High cholesterol History of echocardiogram History of emotional problems History of stress test Hypertension Kidney stones Migraine headache MRSA (methicillin resistant Staphylococcus aureus) Neoplasm of skin of abdomen Neoplasm of skin of back Neoplasm of skin of nose Neoplasm of skin of thigh Neoplasm of skin of upper arm Neoplasm of unspecified behavior of bone, soft tissue, and skin Neuropathy BRIAN (obstructive sleep apnea) Persistent atrial fibrillation Personal history of Methicillin resistant Staphylococcus aureus infection Positive colorectal cancer screening using Cologuard test Psoriasis Restless legs Surgical History chest lump removed excision of basal cell carcinoma right lateral nasal sidewal H/O arthroscopic knee surgery History of basal cell carcinoma excision History of cardioversion (01/09/22) lesion removed off of penis removal of ingrown toenail Family History Grandfather Myocardial infarction, Onset Age: 41Uncle Myocardial infarction, Onset Age: 64Aunt CVA (cerebral vascular accident) DepressionFather Alcoholism strong family history on paternal side. Hypertension Cancer Social History Smoking Status: Current every day smoker second hand exposure: Yes quit status: considering quitting counseling given: provider counseling alcohol intake: current alcohol intake frequency: a few times a week substance use type: does not use caffeine: Yes Type: coffee Number of servings: 2 what type of physical activity do you participate in: none HPI HPI HPI: Patient is a 58 male who presents for need to schedule diagnostic colonoscopy secondary to positive Cologuard. They are referred for surgical consultation from Dr. Jacobson. Patient reports that he has had prior colonoscopy. He reports that this was performed with Dr. Zarate approximately 10 years ago at which time he had some complaints of bleeding per rectum and was found to have a large polyp that she believes of the left colon. He also editorializes that he was told this was one of the larger polyps ever removed by that provider. He states that he went on to have a second colonoscopy that had no abnormal findings and then began Cologuard testing. He states that his last Cologuard was unremarkable and that he has enjoyed rather normal bowel function for the last 8 months so he was surprised by the current result. They describe their bowel habits as better than they have ever been. They have approximately 1-2 per day and spend roughly less than 5 minutes on the toilet without significant straining. They have not noticed recent bleeding or dark stools (however he has noted some dark specks which she states he believes he knows are related to something else but does not further elaborate). He does not have any awareness of hemorrhoids per se, but notes that there has been a hard spot [there?referring to his anus] forever. He also states that he cannot exclude possible external hemorrhoid in the past. Patient has no family history of colon cancer, inflammatory bowel disease, or diverticulitis but does note that his father has required several upper scopes. He states that he has never undergone an upper scope himself, but reports that he has wondered for some time whether or not he should proceed with such a investigation. He has had this concern because he estimates that for about 15 years he had reflux symptoms that were medication?dependent. He notes that his symptoms are much better now having started regular CPAP usage. The patient's weight is stable. The patient is prescribed anticoagulants/blood thinners. He is currently taking Eliquis for history of atrial fibrillation but confirms a history of cardioversion in December 2021. He states he used to follow with Dr. Álvarez before he departed the system and is simply not followed up with cardiology since his departure. He notes that his last visit occurred over a year ago. Patient confirms significant alcohol intake and reports some 6-8 drinks 5 days a week. He is not looking to cut back on this intake at this time. He also reports an approximately [id number] smoking history but notes that his tobacco intake is much less currently. Relevant prior abdominal surgical history includes: Noncontributory [] ROS General General: Yes fatigue; No weight change, appetite, colon cancer, breast cancer or weakness HEENT HEENT: No difficulty swallowing, eye injury, eye surgery, swollen glands or hoarseness Endo Endocrine: No thyroid disease, diabetes mellitus, thyroid cancer, Hair loss, heat intolerance or cold intolerance Skin Skin: Yes changing moles; No rash Musc Musculoskeletal: Yes back problems and arthritis; No rheumatoid arthritis, gout or joint pain Cardio Cardiovascular: Yes murmur, atrial fibrillation and high blood pressure; No pacemaker, heart disease, heart attack, heart stent, palpitations, shortness of breat with exertion or chest pain Psych Psychiatric: Yes depression and anxiety; No hearing voices Resp Respiratory: No shortness of breath, Yes sleep apnea, No cough, No COPD, No asthma, No emphysema and No wheezing Additional Details: uses cpap Gastro Gastrointestinal: Yes abdominal pain, No nausea or vomiting, No diarrhea, No constipation, No blood in stool, No acid reflux, Yes hemorrhoids, No ulcers, No gallbladder problem and No black,tarry stools Antonio Hematologic: Yes blood thinners, No blood disorders, No bleeding, No anemia and No blood clots Neuro Neurologic: No system reviewed and no additional complaints, except as documented, No as per HPI, No abnormal gait, No abnormal hearing, No abnormal movements, No abnormal speech, No behavioral changes, No burning sensations, No confusion, No convulsions, No disequilibrium, No dizziness, No localized weakness, No frequent falls, No headache(s), No lack of coordination, No loss of vision, No memory loss, Yes numbness, No other visual disturbances, No radicular pain, No restless legs, No sensory deficit, No syncope, Yes tingling, No tremor(s), No weakness and No other Exam Const General: cooperative, healthy appearing, comfortable and no acute distress Nutritional Appearance: average body habitus Orientation: alert, awake and oriented x3 GI Other: Obese, nondistended, no scars, soft, nontender to palpation x4 quadrants (patient does note occasional soreness of his right side but nothing presently and states that he is concerned this may be related to muscle strain) Assessment and Plan Assessment and Plan (1) Positive colorectal cancer screening using Cologuard test: Status: Acute Comment: This is a 58-year-old male with a reported history of colonic polyps who has been more recently evaluated with Cologuard testing. He notes 1 prior negative Cologuard test to his current positive test. He denies any overt signs of change with his GI function by history and in fact reports that it is better than it has been previously. Still, given this reporting and his history, follow-up diagnostic colonoscopy is indicated. This recommendation was shared to patient and he readily accepts. Plan: Plan will be to complete diagnostic colonoscopy on first mutually agreeable date under local MAC. Pre-procedure prep discussed and paper instructions provided. Patient is also made aware that he will need to have a pick up driver with him the day of the procedure. (2) GERD (gastroesophageal reflux disease): Status: Chronic Qualifiers: Esophagitis presence: esophagitis presence not specified Qualified Code(s): K21.9 - Gastro-esophageal reflux disease without esophagitis Comment: Patient with 15-year history of reflux?now much better controlled. He also has a history of [id number] smoking tobacco. He has never undergone EGD for Euceda's screening. Therefore, this is recommended and patient accepts this recommendation stating this is something he is considered in the past. Plan: Optimally plan for concurrent EGD with colonoscopy as discussed above (3) Atrial fibrillation: Status: Acute Comment: DCCV on 01/09/2022; patient currently taking Eliquis twice daily and has not had cardiology follow-up in over a year. I would like patient to see cardiology and have them weigh in on appropriateness of holding Eliquis for procedure as discussed above. Given the duration since his last follow-up, seems most reasonable that this check ins/health update is undertaken in the formal clinic visit. Plan: ? Referral to cardiology for follow-up and request to hold Eliquis x48 hours pre and post procedure Interval: PT confirms he has held his Eliquis appropriately for today's procedure and that his prep was completed successfully without difficulty. We reviewed today's plans for both EGD and cscope with the indications as well. All questions were answered and I will plan to follow up with Jada Rebel via telephone next week to discuss results. For now will proceed to the endcoscopy suite as planned.
--- NOTE | 2023-07-10 14:22 | OP.CCLET_ITS ---
07/10/2023 Francisco Jacobson MD [address] [place] [address] [place] [address] Re : Upper GI endoscopy procedure for Major Luque Dear Dr. Jacobson This procedure was performed on Monday, July 10, 2023. My impressions and recommendations are as follows: Impressions : - A few spots with no bleeding in the duodenum. Biopsied. - Erythematous mucosa in the antrum. Biopsied. - A few fundic gland polyps. Biopsied. - Small hiatal hernia. No specimens collected. - Z-line regular, 44 cm from the incisors. Biopsied. - Small (< 5 mm) esophageal varices. No specimens collected. Recommendations : - Discharge patient to home (via wheelchair). - Resume previous diet today. - Continue present medications. - Resume Eliquis (apixaban) at prior dose in 3 days. Refer to managing physician for further adjustment of therapy. - Await pathology results. - Telephone my office for pathology results in 1 week. My findings are described in the full procedure note, which is enclosed. If I can be of further assistance, please feel free to contact me at Doctor phone number(s): , Work: . Sincerely, Napoleon Graf MD 07/10/2023 2:22:20 PM This report has been signed electronically.
--- NOTE | 2023-07-10 14:22 | OP.EGD_ITS ---
Patient Name: Major Luque Procedure Date: 07/10/2023 1:01 PM Date of : 1965 Age: 58 Procedure: Upper GI endoscopy Indications: Screening for Euceda's esophagus, Esophageal reflux Providers: Napoleon Graf MD Referring MD: Napoleon Graf MD Medicines: See the Anesthesia note for documentation of the administered medications Patient Profile: Refer to note in patient chart for documentation of history and physical. Complications: No immediate complications. Estimated blood loss: Minimal. Procedure: Pre-Anesthesia Assessment: - The heart rate, respiratory rate, oxygen saturations, blood pressure, adequacy of pulmonary ventilation, and response to care were monitored throughout the procedure. After obtaining informed consent, the endoscope was passed under direct vision. Throughout the procedure, the patient's blood pressure, pulse, and oxygen saturations were monitored continuously. The pediatric colonoscope was introduced through the mouth, and advanced to the second part of duodenum. The upper GI endoscopy was accomplished without difficulty. The patient tolerated the procedure fairly well. Scope In: 1:15:17 PM Scope Out: 1:32:34 PM Total Procedure Duration Time 0 hours 17 minutes 17 seconds Findings: A few spots with no bleeding were found in the duodenal bulb. Biopsies were taken with a cold forceps for histology. Estimated blood loss was minimal. Localized mildly erythematous mucosa without bleeding was found in the gastric antrum. Biopsies were taken with a cold forceps for Helicobacter pylori testing. Estimated blood loss was minimal. A few 3 mm semi-sessile fundic gland polyps with no bleeding and no stigmata of recent bleeding were found in the gastric body. Biopsies were taken with a cold forceps for histology. Estimated blood loss was minimal. A small hiatal hernia was present. No biopsies or other specimens were collected for this exam. The Z-line was regular and was found 44 cm from the incisors. Biopsies were taken with a cold forceps for histology. Estimated blood loss was minimal. Small (< 5 mm) varices were found in the distal esophagus. No biopsies or other specimens were collected for this exam. Impression: - A few spots with no bleeding in the duodenum. Biopsied. - Erythematous mucosa in the antrum. Biopsied. - A few fundic gland polyps. Biopsied. - Small hiatal hernia. No specimens collected. - Z-line regular, 44 cm from the incisors. Biopsied. - Small (< 5 mm) esophageal varices. No specimens collected. Recommendation: - Discharge patient to home (via wheelchair). - Resume previous diet today. - Continue present medications. - Resume Eliquis (apixaban) at prior dose in 3 days. Refer to managing physician for further adjustment of therapy. - Await pathology results. - Telephone my office for pathology results in 1 week. Procedure Code(s): --- Professional --- 47033, Esophagogastroduodenoscopy, flexible, transoral; with biopsy, single or multiple Diagnosis Code(s): --- Professional --- K31.89, Other diseases of stomach and duodenum K31.7, Polyp of stomach and duodenum K44.9, Diaphragmatic hernia without obstruction or gangrene I85.00, Esophageal varices without bleeding Z13.810, Encounter for screening for upper gastrointestinal disorder K21.9, Gastro-esophageal reflux disease without esophagitis CPT copyright 2021 [employer]. All rights reserved. The codes documented in this report are preliminary and upon landscape foreman review may be revised to meet current compliance requirements. Napoleon Graf MD 07/10/2023 2:22:20 PM This report has been signed electronically. Number of Addenda: 0 Note Initiated On: 07/10/2023 1:01 PM
--- NOTE | 2023-07-10 14:28 | OP.COLON_ITS ---
Patient Name: Major Luque Procedure Date: 07/10/2023 1:33 PM Date of : 1965 Age: 58 Procedure: Colonoscopy Indications: Positive Cologuard test Providers: Napoleon Graf MD Referring MD: Napoleon Graf MD Medicines: See the Anesthesia note for documentation of the administered medications Patient Profile: Refer to note in patient chart for documentation of history and physical. Last Colonoscopy: 10 years ago. Complications: No immediate complications. Estimated blood loss: Minimal. Procedure: Pre-Anesthesia Assessment: - The heart rate, respiratory rate, oxygen saturations, blood pressure, adequacy of pulmonary ventilation, and response to care were monitored throughout the procedure. - The heart rate, respiratory rate, oxygen saturations, blood pressure, adequacy of pulmonary ventilation, and response to care were monitored throughout the procedure. After I obtained informed consent, the scope was passed under direct vision. Throughout the procedure, the patient's blood pressure, pulse, and oxygen saturations were monitored continuously. The pediatric colonoscope was introduced through the anus and advanced to the cecum, identified by the appendiceal orifice, IC valve and transillumination. The colonoscopy was performed without difficulty. The patient tolerated the procedure well. The quality of the bowel preparation was adequate to identify polyps greater than 5 mm in size. Scope In: 1:34:17 PM Scope Withdrawal Time 0 hours 27 minutes 21 seconds Scope Out: 2:06:57 PM Total Procedure Duration Time 0 hours 32 minutes 40 seconds Findings: Skin tags were found on perianal exam. Two semi-sessile, non-bleeding polyps were found in the sigmoid colon and cecum. The polyps were 5 mm in size. Biopsies were taken with a cold forceps for histology. Estimated blood loss was minimal. There was a medium-sized lipoma, 25 mm in diameter, in the distal transverse colon. Biopsies were taken with a cold forceps for histology. Estimated blood loss was minimal. A 3 mm polyp was found in the rectum. The polyp was sessile. Biopsies were taken with a cold forceps for histology. Estimated blood loss was minimal. Impression: - Perianal skin tags found on perianal exam. - Two 5 mm, non-bleeding polyps in the sigmoid colon and in the cecum. Biopsied. - Medium-sized lipoma in the distal transverse colon. Biopsied. - One 3 mm polyp in the rectum. Biopsied. Recommendation: - Discharge patient to home (via wheelchair). - Resume previous diet today. - Resume Eliquis (apixaban) at prior dose in 3 days. Refer to managing physician for further adjustment of therapy. - Await pathology results. - Repeat colonoscopy date to be determined after pending pathology results are reviewed for surveillance based on pathology results. - Telephone my office for pathology results in 1 week. Procedure Code(s): --- Professional --- 37611, Colonoscopy, flexible; with biopsy, single or multiple Diagnosis Code(s): --- Professional --- D12.5, Benign neoplasm of sigmoid colon D12.0, Benign neoplasm of cecum D17.5, Benign lipomatous neoplasm of intra-abdominal organs D12.8, Benign neoplasm of rectum K64.4, Residual hemorrhoidal skin tags R19.5, Other fecal abnormalities CPT copyright 2021 [employer]. All rights reserved. The codes documented in this report are preliminary and upon parking lot attendant review may be revised to meet current compliance requirements. Napoleon Graf MD 07/10/2023 2:27:50 PM This report has been signed electronically. Number of Addenda: 0 Note Initiated On: 07/10/2023 1:33 PM
--- NOTE | 2023-07-10 14:28 | OP.CCLET_ITS ---
07/10/2023 Francisco Jacobson MD [address] [place] [address] [place] [address] Re : Colonoscopy procedure for Major Luque Dear Dr. Jacobson This procedure was performed on Monday, July 10, 2023. My impressions and recommendations are as follows: Impressions : - Perianal skin tags found on perianal exam. - Two 5 mm, non-bleeding polyps in the sigmoid colon and in the cecum. Biopsied. - Medium-sized lipoma in the distal transverse colon. Biopsied. - One 3 mm polyp in the rectum. Biopsied. Recommendations : - Discharge patient to home (via wheelchair). - Resume previous diet today. - Resume Eliquis (apixaban) at prior dose in 3 days. Refer to managing physician for further adjustment of therapy. - Await pathology results. - Repeat colonoscopy date to be determined after pending pathology results are reviewed for surveillance based on pathology results. - Telephone my office for pathology results in 1 week. My findings are described in the full procedure note, which is enclosed. If I can be of further assistance, please feel free to contact me at Doctor phone number(s): , Work: . Sincerely, Napoleon Graf MD 07/10/2023 2:27:50 PM This report has been signed electronically.
== END 2023-07-10 14:50 | disposition home or self-care (01) ==
LOC: EN 11:54 → AC 11:55
PROVIDERS: PCP Internal Medicine; Referring Provider Surgery; Visit Provider Surgery
PROC: 0DJD8ZZ Inspection of Lower Intestinal Tract, Via Natural or Artificial Opening Endoscopic (ICD-10-PCS; CPT 45378; principal; 2023-07-10 12:55)
DX: K44.9 Diaphragmatic hernia without obstruction or gangrene (principal); I85.00 Esophageal varices without bleeding; I48.0 Paroxysmal atrial fibrillation; E78.00 Pure hypercholesterolemia, unspecified; F17.200 Nicotine dependence, unspecified, uncomplicated; K62.1 Rectal polyp; K31.7 Polyp of stomach and duodenum; I10 Essential (primary) hypertension; K31.89 Other diseases of stomach and duodenum; K21.9 Gastro-esophageal reflux disease without esophagitis; K64.4 Residual hemorrhoidal skin tags; G47.33 Obstructive sleep apnea (adult) (pediatric); Z79.899 Other long term (current) drug therapy; Z79.01 Long term (current) use of anticoagulants
CPT/HCPCS: 45380; 43239; 81002; 88305; 88313; 88341; 88342; J7120; J2405

== ENCOUNTER → 2023-10-30 | Outpatient (CLI) | payer MEDICAID, SELFPAY ==
[2023-10-30 16:56] LABS: Absolute Lymphocyte Count 2.12 X10^3/uL (0.83-4.51); Absolute Neutrophil Count 6.7 X10^3/uL (2.0-7.7); Basophil# 0.06 X10^3/uL; Basophil% 0.6 % (0-1); Eosinophil# 0.07 X10^3/uL; Eosinophils% 0.7 % (0-5); Hematocrit 44.2 % (40-54); Hemoglobin 14.8 g/dL (13.0-16.5); Lymphocyte # 2.12 X10^3/ul (0.83-4.51); Lymphocyte % 21.7 % (19-41); Mean Corp Hgb Conc 33.5 g/dL (32-36); Mean Corpuscular Hgb 33.2 pg (27.0-32.0); Mean Corpuscular Volume 99.1 fL (80-94); Mean Platelet Vol. 10.7 fl (6.2-12.0); Monocyte# 0.78 X10^3/uL; NRBC Flagged by Analyzer 0 % (0-5); Neutrophil # 6.72 X10^3/uL (2.7-7.7); Neutrophil % 68.6 % (47-70); Platelet Count 242 K/mm3 (150-450); Red Blood Count 4.46 M/mm3 (4.6-6.2); White Blood Count 9.8 K/mm3 (4.4-11.0)
[2023-10-30 17:15] LABS: AST(SGOT) 24 U/L (15-37); Alanine Aminotransfer ALT/SGPT 43 U/L (16-61); Albumin, Serum 3.8 g/dL (3.2-5.0); Alkaline Phosphatase 88 U/L (45-117); Anion Gap 4 (5-15); BUN 13 mg/dL (7-18); BUN/Creat Ratio 15.4 RATIO (10-20); Calcium,Total 9.5 mg/dL (8.5-10.1); Chloride 108 mmol/L (98-107); Creatinine, Serum 0.84 mg/dL (0.70-1.30); EST Glomerular Filtration Rate 99 mL/min (>60); Est Glom Filt Rate - Afr Amer 120 mL/min (>60); Globulin 3.9 g/dL (2.2-4.2); Glucose 88 mg/dL (74-106); PSA,Total - Annual Screen 0.44 ng/mL (0.00-4.00); Potassium 4.5 mmol/L (3.5-5.1); Protein, Total 7.7 g/dL (6.4-8.2); Sodium Level 140 mmol/L (136-145)
--- OUTSIDE RECORDS SUMMARY | 2023-10-30 19:50 | XMS RPT_ITS | CCD ---
Author Name Unknown Address [address] [place] [address] Organization [facility] Care Team Providers Care Dance Entertainer Name Role Phone Doreen WRIGHT-Adam, Tony A Unavailable Unavailable BLAINE, JAYRAM Unavailable Unavailable [facility] Unavailable Unavailable LOGAN, TONY A Unavailable Unavailable BLAINE, JAYRAM Unavailable Unavailable LOGAN, TONY A Unavailable Unavailable LOGAN, TONY A Unavailable Unavailable BLAINE, JAYRAM Unavailable Unavailable Allergies Allergy Classification Reported Allergen(s) Allergy Type Date of Onset Reaction(s) Facility (5 sources) BANDAID drug allergy 6 [facility] Work Phone: (2 sources) Penicillins; Translations: [PENICILLINS] Propensity to adverse reactions (disorder) 8 [facility] Medications Completed/Discontinued Medications Medication Drug Class(es) Dates Sig (Normalized) Sig (Original) acetaminophen 325 mg / HYDROcodone bitartrate 5 mg oral tablet (10 sources) Opioid Agonist End: 07-15-2017 take 1 tablet by mouth twice daily HYDROCODONE-ACETAM INOPHEN 5-325 MG TABS One tablet by mouth twice daily HYDROCODONE-ACETAM INOPHEN [id number] Tony Logan SUPPLY TECHNICIAN-C acyclovir 400 mg oral tablet (5 sources) Herpesvirus Nucleoside Analog DNA Polymerase Inhibitor, Herpes Simplex Virus Nucleoside Analog DNA Polymerase Inhibitor, Herpes Zoster Virus Nucleoside Analog DNA Polymerase Inhibitor take 1 tablet by mouth once daily ACYCLOVIR TABS 400mg One tablet by mouth daily ACYCLOVIR TABS [id number] Meagan Barriga aspirin (5 sources) Nonsteroidal Anti-inflammatory Drug ASPIRIN TABS as needed ASPIRIN TABS [id number] Meagan Barriga atorvastatin 20 mg oral tablet (10 sources) HMG-CoA Reductase Inhibitor Start: 05-15-2017 take 1 tablet by mouth once daily ATORVASTATIN CALCIUM 20 MG TABS One tablet by mouth daily ATORVASTATIN CALCIUM [id number] Tony Zach Logan SUPPLY TECHNICIAN-C gabapentin 300 mg oral capsule (1 source) Anti-epileptic Agent Start: 07-25-2017 take 1 tablet by mouth three times daily GABAPENTIN 300 MG CAPS One tablet by mouth three times daily GABAPENTIN [id number] Tony Zach Logan SUPPLY TECHNICIAN-C ibuprofen (5 sources) Nonsteroidal Anti-inflammatory Drug IBUPROFEN CAPS as needed IBUPROFEN CAPS [id number] Meagan Barriga imiquimod 50 mg/ml topical cream (5 sources) Start: 06-04-2016 ALDARA 5 % CREA apply daily at night 5 days per week for 6 weeks IMIQUIMOD [id number] Roly Merida MD linezolid 600 mg oral tablet (1 source) Oxazolidinone Antibacterial Start: 07-25-2017 take 1 tablet by mouth twice daily LINEZOLID 600 MG TABS One tablet by mouth twice daily LINEZOLID [id number] Tony Zach Logan SUPPLY TECHNICIAN-C lisinopril 5 mg oral tablet (6 sources) Angiotensin Converting Enzyme Inhibitor Start: 07-15-2017 take 1 tablet by mouth once daily LISINOPRIL 5 MG TABS One tablet by mouth daily LISINOPRIL [id number] Tony Zach Logan SUPPLY TECHNICIAN-C Problems Active Problems Problem Classification Problem Date Documented Da te Episodic/Chronic Disorders of lipid metabolism (5 sources) Hyperlipidemia; Translations: [Hyperlipidemia, unspecified] Onset: 04-24-2017 04-24-2017 Chronic Essential hypertension (5 sources) Hypertensive disorder; Translations: [Essential (primary) hypertension] 04-24-2017 Chronic Hyperplasia of prostate (1 source) Benign prostatic hyperplasia with lower urinary tract symptoms; Translations: [Benign prostatic hyperplasia with lower urinary tract symptoms] Onset: 10-18-2017 Chronic Mood disorders (1 source) Depressive disorder; Translations: [Major depressive disorder, single episode, unspecified] Onset: 07-25-2017 07-25-2017 Chronic Other nervous system disorders (1 source) Chiari malformation type I; Translations: [Compression of brain] Onset: 07-25-2017 07-25-2017 Chronic Other non-epithelial cancer of skin (5 sources) Basal cell carcinoma of dorsum of nose; Translations: [Basal cell carcinoma of skin of nose] Onset: 05-09-2016 05-15-2016 Chronic Spondylosis; intervertebral disc disorders; other back problems (2 sources) Cervical radiculopathy; Translations: [Other cervical disc displacement, unspecified cervical region] Onset: 07-25-2017 07-25-2017 Chronic Substance-related disorders (10 sources) Smoker; Translations: [Tobacco dependence syndrome] Onset: 05-09-2016 05-15-2016 Chronic Unclassified (5 sources) Aftercare ; Translations: [Encounter for other specified surgical aftercare] Onset: 05-28-2016 06-04-2016 Unclassified (1 source) Unknown / UNK(Unknown) Onset: 10-18-2017 Past or Other Problems Problem Classification Problem Date Documented Date Episodic/Chronic Neoplasms of unspecified nature or uncertain behavior (10 sources) Neoplasm of skin; Translations: [Neoplasm of unspecified behavior of bone, soft tissue, and skin] Onset: 05-09-2016 08-27-2016 Episodic Other diseases of kidney and ureters (1 source) Other obstructive and reflux uropathy; Translations: [Other obstructive and reflux uropathy] Onset: 10-18-2017 Episodic Other infections (1 source) H/O: infectious disease; Translations: [Personal history of Methicillin resistant Staphylococcus aureus infection] Onset: 07-25-2017 07-25-2017 Episodic Other skin disorders (10 sources) Disorder of nail; Translations: [Actinic keratosis] Onset: 05-28-2016 04-24-2017 Episodic Skin and subcutaneous tissue infections (5 sources) Cellulitis of knee; Translations: [Cellulitis of right lower limb] Onset: 07-15-2017 07-15-2017 Episodic Unclassified (10 sources) Family history of alcoholism; Translations: [Family history of malignant neoplasm of skin] Onset: 05-09-2016 04-24-2017 Episodic Unclassified (1 source) Encounter for screening for malignant neoplasm of prostate; Translations: [Encounter for screening for malignant neoplasm of prostate] Onset: 10-18-2017 Episodic Unclassified (1 source) Benign prostatic hyperplasia with lower urinary tract symptoms Onset: 10-18-2017 Results Test Name Value Interpretation Reference Range Facil ity Vital Signs Date Time Vital Sign Value Performing Clinician Facility 07-25-2017 14:47-0500 BMI (Body Mass Index) 29.03 kg/m2 Tony Logan SUPPLY TECHNICIAN-C [facility] Work Phone: 07-25-2017 14:47-0500 Body Temperature 98.9 [degF] Tony Logan SUPPLY TECHNICIAN-C [facility] Work Phone: 07-25-2017 14:47-0500 BP Diastolic 85 mm[Hg] Tony Logan SUPPLY TECHNICIAN-C [facility] Work Phone: 07-25-2017 14:47-0500 BP Systolic 120 mm[Hg] Tony Logan SUPPLY TECHNICIAN-C [facility] Work Phone: 07-25-2017 14:47-0500 Height 179.07 cm Tony Logan SUPPLY TECHNICIAN-C [facility] Work Phone: 07-25-2017 14:47-0500 Pulse (Heart Rate) 71 /min Tony Logan SUPPLY TECHNICIAN-C [facility] Work Phone: 07-25-2017 14:47-0500 Respiratory Rate 18 /min Tony Logan SUPPLY TECHNICIAN-C [facility] Work Phone: 07-25-2017 14:47-0500 Weight 93.1 kg Tony Logan SUPPLY TECHNICIAN-C [facility] Work Phone: 07-17-2017 10:29-0500 BMI (Body Mass Index) 29.44 kg/m2 Tony Logan SUPPLY TECHNICIAN-C [facility] Work Phone: 07-17-2017 10:29-0500 Body Temperature 98.6 [degF] Tony Logan SUPPLY TECHNICIAN-C [facility] Work Phone: 07-17-2017 10:29-0500 BP Diastolic 77 mm[Hg] Tony Logan SUPPLY TECHNICIAN-C [facility] Work Phone: 07-17-2017 10:29-0500 BP Systolic 117 mm[Hg] Tony Logan SUPPLY TECHNICIAN-C [facility] Work Phone: 07-17-2017 10:29-0500 Height 179.07 cm Tnoy Logan SUPPLY TECHNICIAN-C [facility] Work Phone: 07-17-2017 10:29-0500 Pulse (Heart Rate) 70 /min Tony Logan SUPPLY TECHNICIAN-C [facility] Work Phone: 07-17-2017 10:29-0500 Respiratory Rate 16 /min Tony Logan SUPPLY TECHNICIAN-C [facility] Work Phone: 07-17-2017 10:29-0500 Weight 94.41 kg Tony Logan SUPPLY TECHNICIAN-C [facility] Work Phone: 07-15-2017 14:16-0500 BMI (Body Mass Index) 29.56 kg/m2 Tony Logan SUPPLY TECHNICIAN-C [facility] Work Phone: 07-15-2017 14:16-0500 Body Temperature 99.2 [degF] Tony Logan SUPPLY TECHNICIAN-C [facility] Work Phone: 07-15-2017 14:16-0500 BP Diastolic 96 mm[Hg] Tony Logan SUPPLY TECHNICIAN-C [facility] Work Phone: 07-15-2017 14:16-0500 BP Systolic 143 mm[Hg] Tony Logan SUPPLY TECHNICIAN-C [facility] Work Phone: 07-15-2017 14:16-0500 Height 179.07 cm Tony Logan SUPPLY TECHNICIAN-C [facility] Work Phone: 07-15-2017 14:16-0500 Pulse (Heart Rate) 68 /min Tony Logan SUPPLY TECHNICIAN-C [facility] Work Phone: 07-15-2017 14:16-0500 Respiratory Rate 18 /min Tony Logan SUPPLY TECHNICIAN-C [facility] Work Phone: 07-15-2017 14:16-0500 Weight 94.8 kg Tony Logan SUPPLY TECHNICIAN-C [facility] Work Phone: 08-08-2016 10:47-0500 BSA (Body Surface Area) 2.15 m2 Tony Logan SUPPLY TECHNICIAN-C [facility] Work Phone: Encounters Encounter Date Encounter Type Care Provider Facility Start: 10-24-2018 Ambulatory MARIANA VALLADARES Facilit y:[facility] Start: 10-18-2017 End: 10-18-2017 Ambulatory MARIANA VALLADARES Facility:[facility] Procedures Date Procedure Procedure Detail Performing Clinician Start: 05-09-2016 End: 05-24-2016 Follow Up Appt Other Roly Merida MD Plan of Treatment Date Care Activity Detail Author Start: 09-04-2017 End: 09-04-2017 Appointment Appointment [facility] Work Phone: Start: 08-28-2017 End: 08-28-2017 Appointment Appointment [facility] Work Phone: Start: 08-26-2017 End: 07-17-2017 *Hepatic Function Panel *Hepatic Function Panel [facility] Work Phone: Start: 08-26-2017 End: 07-17-2017 Lipid panel [AGGREGATE] *Lipid Profile CC PCP [facility] Work Phone: Start: 07-29-2017 End: 07-15-2017 *BMP *BMP [facility] Work Phone: Start: 07-25-2017 End: 07-25-2017 Appointment Appointment [facility] Work Phone: Start: 07-17-2017 End: 07-17-2017 Follow Up Appt 6 weeks Follow Up Appt 6 weeks [facility] Work Phone: Start: 07-17-2017 End: 07-17-2017 Appointment Appointment [facility] Work Phone: Start: 07-15-2017 End: 07-15-2017 Appointment Appointment [facility] Work Phone: Start: 07-15-2017 End: 07-15-2017 Follow Up Appt 6 weeks Follow Up Appt 6 weeks [facility] Work Phone: Start: 04-24-2017 End: 04-24-2017 Follow Up Appt 3 months Follow Up Appt 3 months [facility] Work Phone: Start: 04-24-2017 End: 04-24-2017 Podiatry Referral Podiatry Referral Chelsi Lauren DPM, [facility], [address], [address], [place], [address] [facility] Work Phone: Start: 08-08-2016 End: 08-27-2016 Follow Up Appt 6 months Follow Up Appt 6 months [facility] Work Phone: Start: 07-04-2016 End: 07-08-2016 Follow Up Appt 1 month Follow Up Appt 1 month [facility] Work Phone: Start: 06-20-2016 End: 06-27-2016 Follow Up Appt 2 weeks Follow Up Appt 2 weeks [facility] Work Phone: Start: 06-04-2016 End: 06-17-2016 Follow Up Appt 2 weeks Follow Up Appt 2 weeks [facility] Work Phone: Start: 05-28-2016 End: 06-04-2016 Follow up Appt 1 week Follow up Appt 1 week [facility] Work Phone: Start: 05-09-2016 End: 05-24-2016 Follow Up Appt Other Follow Up Appt Other [facility] Work Phone: Patient Education Medications [facility] [facility] Work Phone: Payers Date Payer Category Payer Policy ID Unknown [id number] Summary Purpose Family History No Family History Records FoundNo Family History Records Found Advance Directives No Advanced Directives Records FoundNo Advanced Directives Records Found Additional Source Comments (unrecognized sect ion and content) No Status Records FoundNo Status Records Found INFORMATION SOURCE (unrecogn ized section and content) DATE CREATED AUTHOR AUTHOR'S SEAN GARIBAY 02/14/2018 [facility] FOR RECORDS PERTAINING TO PATIENTS WHO ARE OR HAVE BEEN ENROLLED IN A CHEMICAL DEPENDENCY/SUBSTANCEABUSE PROGRAM, SOME INFORMATION MAY BE OMITTED. This clinical summary was aggregated from multiple sources. Caution should be exercised in using it in the provision of clinical care. This summary normalizes information from multiple sources, and as a consequence, information in this document may materially change the coding, format and clinical context of patient data. In addition, data may be omitted in some cases. CLINICAL DECISIONS SHOULD BE BASED ON THE PRIMARY CLINICAL RECORDS. [facility] [employer] [facility]. provides no warranty or guarantee of the accuracy or completeness of information in this document.
== END | disposition home or self-care (01) ==
LOC: BIMLAB 14:44
PROVIDERS: PCP Internal Medicine; Visit Provider Internal Medicine
DX: I10 Essential (primary) hypertension (principal); N40.0 Benign prostatic hyperplasia without lower urinary tract symptoms
CPT/HCPCS: 84153; 36415; 80053; 85025; G0103

== ENCOUNTER → 2023-12-05 | Outpatient (CLI) | payer MEDICAID, SELFPAY ==
--- NOTE | 2023-12-05 15:00 | CT_ITS ---
STUDY: LOW DOSE CT LUNG CANCER SCREENING REASON FOR EXAM: Male, 58 years old. One pack per day smoker x35 years RADIATION DOSAGE (If Supplied By Facility): CTDIvol = ( 3.18 ) mGy, DLP = ( 124.71 ) mGycm TECHNIQUE: No contrast was administered. Low dose technique was utilized (average mAS-38 and kVp 120). 1.25 mm axial source images with a slice interval of 1.25-mm were reconstructed in lung windows. 2.5 mm axial source images with a slice interval of 2.5-mm were reconstructed in lung windows. 5.0 mm axial source images with a slice interval of 5.0-mm were reconstructed in soft tissue windows. COMPARISON: 08/08/2021 FINDINGS: Lung windows show the lungs to be normally expanded. Chronic interstitial changes noted in both lung granados with evidence of chronic bronchitis but no organized infiltrate, effusion, or suspicious noncalcified mass or nodule Soft tissue windows show normal-appearing thyroid gland. No suspicious adenopathy. Thoracic aorta tapers normally. There are punctate coronary artery calcifications. Limited cuts through the upper abdomen do not show suspicious abnormality. Bony structures show degenerative change. CT/Low Dose CT Lung Screening IMPRESSION: Lung-RADS category 2 - Continue annual screening with LDCT in 12 months. IMPORTANT NOTES FOR USE: ACR Lung-RADS Version 1.1 Assessment Categories Release Date: 2018 Category: Coded 0-4 bases on nodule(s) with highest degree of suspicion. Negative screen is defined as categories 1 and 2; a positive screen is defined as categories 3 and 4. Category 3 and 4A nodules that are unchanged on interval CT should be coded as category 2, and individuals returned to screening in 12 months. Category 4X: Category 3 or 4 nodules with additional imaging findings that increase the suspicion of lung cancer, such as spiculation, GGN that doubles in size in 1 year, enlarged lymph notes, etc. Category Modifiers: S (significant finding unrelated to lung cancer) Electronically Signed: Damien Tolbert MD at 9:24 EDT Reading Location ID and State: [facility] / [place] , Service support ,
== END | disposition home or self-care (01) ==
LOC: CT 14:45
PROVIDERS: PCP Internal Medicine; Referring Provider Nurse Practitioner; Visit Provider Nurse Practitioner
DX: Z12.2 Encounter for screening for malignant neoplasm of respiratory organs (principal); F17.200 Nicotine dependence, unspecified, uncomplicated
CPT/HCPCS: 71271

== ENCOUNTER → 2024-05-01 | Outpatient (CLI) | payer MEDICAID, SELFPAY ==
[2024-05-01 15:21] LABS: Absolute Lymphocyte Count 1.83 X10^3/uL (0.83-4.51); Absolute Neutrophil Count 5.3 X10^3/uL (2.0-7.7); Basophil# 0.04 X10^3/uL; Basophil% 0.5 % (0-1); Eosinophil# 0.07 X10^3/uL; Eosinophils% 0.9 % (0-5); Hematocrit 41.1 % (40-54); Lymphocyte # 1.83 X10^3/ul (0.83-4.51); Lymphocyte % 23.1 % (19-41); Mean Corp Hgb Conc 34.1 g/dL (32-36); Mean Corpuscular Hgb 34.1 pg (27.0-32.0); Mean Corpuscular Volume 100.2 fL (80-94); Mean Platelet Vol. 10.7 fl (6.2-12.0); Monocyte# 0.65 X10^3/uL; Monocyte% 8.2 % (0-10); NRBC Flagged by Analyzer 0 % (0-5); Platelet Count 205 K/mm3 (150-450); RBC Distribution Width CV 12.6 % (11.6-14.6); White Blood Count 7.9 K/mm3 (4.4-11.0)
[2024-05-01 17:08] LABS: Anion Gap 6 (5-15); BUN 13 mg/dL (7-18); BUN/Creat Ratio 16.7 RATIO (10-20); Calcium,Total 9.2 mg/dL (8.5-10.1); Chloride 109 mmol/L (98-107); Cholesterol 155 mg/dL (200); Creatinine, Serum 0.78 mg/dL (0.70-1.30); EST Glomerular Filtration Rate 108 mL/min (>60); Est Glom Filt Rate - Afr Amer 131 mL/min (>60); Glucose 100 mg/dL (74-106); High Density Lipoprotein 51 mg/dL; Potassium 3.7 mmol/L (3.5-5.1); Sodium Level 140 mmol/L (136-145); Triglycerides 161 mg/dL; Very Low Density Lipoprotein 32 mg/dL (5-40)
== END | disposition home or self-care (01) ==
LOC: BIMLAB 14:28
PROVIDERS: PCP Internal Medicine; Referring Provider Internal Medicine; Visit Provider Internal Medicine
DX: E78.5 Hyperlipidemia, unspecified (principal); I10 Essential (primary) hypertension
CPT/HCPCS: 36415; 80048; 80061; 85025

== ENCOUNTER → 2024-09-30 | Outpatient (CLI) | payer MEDICAID, SELFPAY ==
[2024-09-30 16:47] LABS: Absolute Lymphocyte Count 1.48 X10^3/uL (0.83-4.51); Absolute Neutrophil Count 4.3 X10^3/uL (2.0-7.7); Basophil# 0.05 X10^3/uL; Basophil% 0.8 % (0-1); Eosinophils% 1.5 % (0-5); Hematocrit 43.5 % (40-54); Hemoglobin 14.7 g/dL (13.0-16.5); Lymphocyte # 1.48 X10^3/ul (0.83-4.51); Lymphocyte % 22.3 % (19-41); Mean Corp Hgb Conc 33.8 g/dL (32-36); Mean Corpuscular Hgb 33.8 pg (27.0-32.0); Mean Platelet Vol. 10.8 fl (6.2-12.0); Monocyte# 0.72 X10^3/uL; Monocyte% 10.8 % (0-10); NRBC Flagged by Analyzer 0 % (0-5); Neutrophil # 4.27 X10^3/uL (2.7-7.7); Neutrophil % 64.1 % (47-70); Platelet Count 239 K/mm3 (150-450); RBC Distribution Width CV 12.4 % (11.6-14.6); RBC Distribution Width SD 46.1 fl (35.1-43.9); Red Blood Count 4.35 M/mm3 (4.6-6.2); White Blood Count 6.7 K/mm3 (4.4-11.0)
[2024-09-30 17:05] LABS: ALB/GLOB Ratio 0.9 RATIO (0.9-2.4); AST(SGOT) 18 U/L (15-37); Alanine Aminotransfer ALT/SGPT 38 U/L (16-61); Albumin, Serum 3.6 g/dL (3.2-5.0); Alkaline Phosphatase 85 U/L (45-117); Anion Gap 4 (5-15); BUN 12 mg/dL (7-18); BUN/Creat Ratio 15.6 RATIO (10-20); Calcium,Total 9.1 mg/dL (8.5-10.1); Chloride 106 mmol/L (98-107); Creatinine, Serum 0.77 mg/dL (0.70-1.30); EST Glomerular Filtration Rate 110 mL/min (>60); Est Glom Filt Rate - Afr Amer 133 mL/min (>60); Glucose 92 mg/dL (74-106); Potassium 3.8 mmol/L (3.5-5.1); Protein, Total 7.6 g/dL (6.4-8.2); Sodium Level 138 mmol/L (136-145)
== END | disposition home or self-care (01) ==
LOC: BIMLAB 14:31
PROVIDERS: PCP Internal Medicine; Referring Provider Internal Medicine; Visit Provider Internal Medicine
DX: I10 Essential (primary) hypertension (principal)
CPT/HCPCS: 36415; 80053; 85025

== ENCOUNTER → 2025-03-18 | Outpatient (CLI) | payer MEDICAID, SELFPAY ==
--- NOTE | 2025-03-18 13:47 | CT_ITS ---
PROCEDURE: LOW DOSE CT LUNG SCREENING 03/18/2025 REASON FOR EXAM: LUNG CANCER SCREENING TECHNIQUE: LOW DOSE CT LUNG SCREENING Coronal and Sagittal reconstruction series were provided. One or more dose reduction techniques were used (e.g., Automated exposure control, adjustment of the mA and/or kV according to patient size, use of iterative reconstruction technique). REFERENCE LINK: [facility] Lung-RADS RADIATION DOSE SUMMARY: CTDlvol: 4 mGy DLP: 158 mGycm COMPARISON: 12/05/2023 FINDINGS: Central airways are patent. Well inflated lungs. No consolidation, effusion, or pneumothorax. On the left, no suspicious lung nodules. On the right, no suspicious lung nodules. Stable base of neck and axilla. Normal esophagus. Normal heart size. No acute vascular pathology. No acute upper abdominal findings. No acute chest wall findings. CT/Low Dose CT Lung Screening IMPRESSION: No suspicious lung nodules Lung-RADS Category: 1 Other Significant Findings: Reading Location: [facility]
== END | disposition home or self-care (01) ==
LOC: CT 13:45
PROVIDERS: PCP Internal Medicine; Referring Provider Internal Medicine; Visit Provider Internal Medicine
DX: Z12.2 Encounter for screening for malignant neoplasm of respiratory organs (principal); F17.210 Nicotine dependence, cigarettes, uncomplicated
CPT/HCPCS: 71271

== ENCOUNTER → 2025-04-07 | Outpatient (CLI) | payer MEDICAID, SELFPAY ==
[2025-04-07 18:09] LABS: AST(SGOT) 23 U/L (<=37); Alanine Aminotransfer ALT/SGPT 28 U/L (<=46); Albumin, Serum 4.2 g/dL (3.4-4.8); Alkaline Phosphatase 90 U/L (40-129); Anion Gap 13 (5-15); BUN 14 mg/dL (4-19); BUN/Creat Ratio 16.9 RATIO (10-20); Calcium,Total 9.5 mg/dL (7.6-11.0); Carbon Dioxide 21.9 mmol/L (21.0-32.0); Chloride 104 mmol/L (98-108); Cholesterol 162 mg/dL (<=200); Globulin 3.2 g/dL (2.2-4.2); Glucose 98 mg/dL (70-99); Low Density Lipoprotein Calc. 88 mg/dL; PSA,Total - Annual Screen 0.38 ng/mL (0.02-4.00); Potassium 3.7 mmol/L (3.3-5.1); Triglycerides 61 mg/dL; Very Low Density Lipoprotein 12 mg/dL (5-40); cholesterol:hdl ratio screen 2.63
[2025-04-07 18:12] LABS: Hematocrit 42.7 % (40-54); Hemoglobin 14.8 g/dL (13.0-16.5); Immature Granulocytes Count 0.020 X10^3/uL (0.0-0.0); Mean Corp Hgb Conc 34.7 g/dL (32-36); Mean Corpuscular Volume 97.9 fL (80-94); Mean Platelet Vol. 11.0 fl (6.2-12.0); NRBC Flagged by Analyzer 0 % (0-5); Platelet Count 212 K/mm3 (150-450); RBC Distribution Width CV 12.3 % (11.6-14.6); RBC Distribution Width SD 44.9 fl (35.1-43.9); Red Blood Count 4.36 M/mm3 (4.6-6.2); White Blood Count 8.1 K/mm3 (4.4-11.0)
== END | disposition home or self-care (01) ==
LOC: MTLAB 14:44
PROVIDERS: PCP Internal Medicine; Referring Provider Internal Medicine; Visit Provider Internal Medicine
DX: I48.0 Paroxysmal atrial fibrillation (principal); I10 Essential (primary) hypertension; Z12.5 Encounter for screening for malignant neoplasm of prostate; E78.5 Hyperlipidemia, unspecified
CPT/HCPCS: 84153; 36415; 80053; 80061; 85025; G0103